=== PATIENT | female | born 1950 | race Hispanic/Latino ===

== ENCOUNTER 2016-10-16 20:23 | Emergency (ER) | payer MEDICARE, BC ==
[2016-10-16 20:45] VITALS: BP 132/71; PULSE 73; RESP 16; TEMP 99.2; BMI 36.7
--- NOTE | 2016-10-16 21:04 | ED PDOC ---
Arrival/HPI - General Chief Complaint: Lower Extremity Problem/Injury Time Seen by Provider: 10/16/16 21:01 Historian: Patient - History of Present Illness Narrative History of Present Illness (Text): 10/16/16 21:04 This 66 yo female presents to this ED c/o left calf pain, left foot pain x 6 months. Pain has exacerbated since last week. Pain is worse today. Denies other complains. Time/Duration: Other (6 months) Symptom Onset: Gradual Symptom Course: Worsening Context: Home Past Medical History - Provider Review Nursing Documentation Reviewed: Yes - Infectious Disease Hx of Infectious Diseases: None - Tetanus Immunization Tetanus Immunization: Unknown - Reproductive Menopause: Yes - Cardiac Hx Cardiac Disorders: No - Pulmonary Hx Respiratory Disorders: Yes Hx Chronic Obstructive Pulmonary Disease (COPD): Yes - HEENT Hx HEENT Disorder: Yes (eyeglasses) - Endocrine/Metabolic Hx Endocrine Disorders: Yes Hx Diabetes Mellitus Type 2: Yes - Hematological/Oncological Other/Comment: 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"; acute allergic nephritis - Musculoskeletal/Rheumatological Hx Musculoskeletal Disorders: No - Psychiatric Hx Substance Use: No - Surgical History Hx Appendectomy: Yes Hx Orthopedic Surgery: Yes (right knee) - Anesthesia Hx Anesthesia: Yes Hx Anesthesia Reactions: No Hx Malignant Hyperthermia: No - Suicidal Assessment Feels Threatened In Home Enviroment: No Family/Social History - Physician Review Nursing Documentation Reviewed: Yes Family/Social History: No Known Family HX Smoking Status: Former Smoker Hx Alcohol Use: No Hx Substance Use: No Hx Substance Use Treatment: No Allergies/Home Meds Allergies/Adverse Reactions: Allergies Penicillins Allergy (Verified 10/16/16 20:44) ANAPHYLAXIS strawberry Allergy (Verified 10/16/16 20:44) ITCHING Home Medications: Home Meds Medication Instructions Recorded Confirmed Aspirin [Aspir 81] 81 mg PO DAILY 10/09/12 10/16/16 Glipizide 5 mg PO BID PRN 10/09/12 10/16/16 Metformin Hydrochloride [Metformin] 500 mg PO BID 10/09/12 10/16/16 Methotrexate 2.5 mg PO SAT 10/09/12 10/16/16 Metoclopramide Hydrochloride 10 mg PO TID PRN 10/09/12 10/16/16 [Reglan] Sucralfate [Carafate] 1 gm PO TID PRN 10/09/12 10/16/16 Review of Systems - Review of Systems Constitutional: Normal. absent: Fatigue, Weight Change, Fevers Eyes: Normal ENT: Normal Respiratory: Normal Cardiovascular: Normal Gastrointestinal: Normal Genitourinary Female: Normal Musculoskeletal: Other (See HPI) Skin: Normal Neurological: Normal Endocrine: Normal Hemo/Lymphatic: Normal Psychiatric: Normal Physical Exam Vital Signs Temp Pulse Resp BP Pulse Ox 10/16/16 20:45 99.2 F 73 16 132/71 96 Temperature: Afebrile Blood Pressure: Normal Pulse: Regular Respiratory Rate: Normal Appearance: Positive for: Well-Appearing, Non-Toxic, Comfortable Pain Distress: None Mental Status: Positive for: Alert and Oriented X 3 - Systems Exam Head: Present: Atraumatic, Normocephalic Pupils: Present: PERRL Extroacular Muscles: Present: EOMI Conjunctiva: Present: Normal Mouth: Present: Moist Mucous Membranes Neck: Present: Normal Range of Motion Back: Present: Normal Inspection. No: CVA Tenderness Upper Extremity: Present: Normal Inspection, Normal ROM, NORMAL PULSES, Neurovascularly Intact, Capillary Refill < 2s. No: Cyanosis, Edema Lower Extremity: Present: CALF TENDERNESS (mild), NORMAL PULSES, Normal ROM, Tenderness (mild dorsal tenderness left foot), Neurovascularly Intact, Capillary Refill < 2 s, Other (Saldaña test was negative. No posterior ankle tenderness.). No: Edema, Cyanosis, Swelling, Erythema, Temperature Abnormalties Neurological: Present: GCS=15, CN II-XII Intact, Speech Normal Skin: Present: Warm, Dry, Normal Color. No: Rashes Psychiatric: Present: Alert, Oriented x 3 Medical Decision Making ED Course and Treatment: 10/16/16 23:10 Re-evaluation. Patient feels better. Discussed results and plan with patient who expresses understanding. All questions answered and there is agreement with the plan to discharge home with instructions. Patient stable for discharge. Return if symptoms persist or worsen Re-evaluation Time: 23:37 Reassessment Condition: Re-examined, Improved - RAD Interpretation Narrative RAD Interpretations (Text): 10/16/16 23:16 Patient Name: TORRES IZAGUIRRE FINDINGS: Bones/joints: There degenerative changes of the intertarsal and tarsometatarsal joints. There is osseous fragments present within the aspect of the forefoot at the level of the tarsal/metatarsal articulation involving the first digit, nonspecific probably chronic. Plantar spur of the calcaneus is present. No acute fracture. No dislocation. Soft tissues: There is mild soft tissue edema diffusely. No radiopaque foreign body. Vasculature: Vascular calcifications are evident. IMPRESSION: No acute findings. Dictated and Authenticated by: Mirta Kaur MD 10/16/2016 11:06 PM Eastern Time ([place] & [place]) 10/16/16 23:00 Foot x-rays: Questionable 3rd proximal metatarsal stress fx. vs groove Ankle x-rays: No fx or sublux. Radiology Orders: 10/16/16 21:02 ANKLE LEFT 3 VIEWS ROUTINE [RAD] Stat DUPLEX LOWER EXTRM VEIN LEFT [US] Stat 10/16/16 21:03 FOOT LEFT 3 VIEWS ROUTINE [RAD] Stat 10/16/16 22:19 EXT LOWER W/O CONTRAST LEFT [CT] Stat - Medication Orders Current Medication Orders: Discontinued Medications Acetaminophen (Tylenol 325mg Tab) 650 mg PO STAT STA Stop: 10/16/16 21:04 Last Admin: 10/16/16 21:11 Dose: 650 MG MAR Pain/Vitals Document 10/16/16 21:11 [email or web address] (Rec: 10/16/16 21:13 [email or web address] [id number]) Pain Reassessment Is This A Pain ReAssessment? No Sleep Is patient sleeping during reassessment? No Presence of Pain Presence of Pain Yes Pain Scale Used Pain Scale Used Numeric Location Left, Right or Bilateral Left Pain Location Body Site Foot Description Constant Intensity 6 Scale Used Numeric Pain Behavior Facial Grimacing Aggravating Factors Changing Position Aggravating Factors Changing Position Oxycodone/Acetaminophen (Percocet 5/325 Mg Tab) 1 tab PO STAT STA Stop: 10/16/16 23:06 Last Admin: 10/16/16 23:10 Dose: 1 TAB - Procedure PROCEDURE NOTE (Text): 10/16/16 23:14 [place] bandage was ordered. Disposition/Present on Arrival - Present on Arrival Any Indicators Present on Arrival: No History of DVT/PE: No History of Uncontrolled Diabetes: No Urinary Catheter: No History of Decub. Ulcer: No History Surgical Site Infection Following: None - Disposition Have Diagnosis and Disposition been Completed?: Yes Diagnosis: Foot pain, Ankle pain Disposition: HOME/ ROUTINE Disposition Time: 23:20 Patient Plan: Discharge Patient Problems: Current Active Problems Problem Status Diagnosed Ankle pain Acute Foot pain Acute Condition: GOOD Discharge Instructions (ExitCare): Arthralgia (ED) Additional Instructions: Call Dr. Toscano office for follow up visit in 1-2 days. Take medication as instructed by your doctor for pain. Keep foot elevated, rest, ice, milton bandage till revaluated by our doctor. Remove milton bandage at bedtime. Referrals: Geraldo Toscano MD [Primary Care Provider] - Follow up with primary
[2016-10-16] MEDS ORDERED: Oxycodone/Acetaminophen 5/325 mg Tab PO STA (23:05)
[2016-10-16 23:58] VITALS: O2SAT 98
--- NOTE | 2016-10-17 07:18 | US ---
PROCEDURE: Left lower extremity venous US HISTORY: Leg pain and swelling. Evaluate for DVT. PHYSICIAN(S): Bayron Rodriges MD. TECHNIQUE: Duplex sonography and color-flow Doppler with graded compression were used to evaluate the deep venous system of the left lower extremity. The exam is limited by body habitus and edema. FINDINGS: The visualized deep venous system of the left lower extremity is sonographically normal and compressible. Normal wave forms and augmentation are seen. There is no sonographic evidence for deep venous thrombosis in the visualized segments of the left lower extremity. IMPRESSION: 1. No sonographic evidence for deep venous thrombosis in the visualized segments of the left lower extremity.
--- NOTE | 2016-10-17 09:34 | RAD ---
PROCEDURE: Left Ankle Radiographs. HISTORY: pain COMPARISON: None FINDINGS: BONES: There is no acute fracture or bone destruction. Bone alignment is normal. There is diffuse bone demineralization. There is a large plantar calcaneal spur. JOINTS: Normal. No osteoarthritis. Ankle mortise maintained. Talar dome intact SOFT TISSUES: There is moderate periarticular soft tissue swelling and subcutaneous edema. OTHER FINDINGS: None. IMPRESSION: No acute fracture or dislocation.
--- NOTE | 2016-10-17 09:35 | RAD ---
PROCEDURE: Left Foot Radiographs. HISTORY: Pain COMPARISON: None. FINDINGS: BONES: There is no acute fracture or bone destruction. Bone alignment is normal. There is diffuse bone demineralization. There is a large plantar calcaneal spur. JOINTS: Normal. SOFT TISSUES: There is diffuse soft tissue swelling in the foot. OTHER FINDINGS: Atherosclerotic vascular calcifications are present. IMPRESSION: No acute fracture or dislocation.
--- NOTE | 2016-10-17 10:39 | CT ---
PROCEDURE: CT of the left foot HISTORY: dorsal foot pain r/o stress Fx base 3rd metatarsa COMPARISON: TECHNIQUE: CT of the left foot was performed with sagittal and coronal reconstructions. FINDINGS: There is no evidence of fracture. There is no dislocation. Mild degenerative changes are seen with osteophytes on the dorsal surface of the 1st and 2nd cuneiform. The report concurs with the preliminary [facility] report IMPRESSION: No acute findings
== END 2016-10-16 23:58 | disposition home or self-care (01) ==
LOC: ED 20:23
DX: M79.672 Pain in left foot (principal); M25.572 Pain in left ankle and joints of left foot; E11.9 Type 2 diabetes mellitus without complications; Z87.891 Personal history of nicotine dependence; Z88.0 Allergy status to penicillin

== ENCOUNTER 2016-12-13 13:26 | Emergency (ER) | payer MEDICARE, BC ==
[2016-12-13 13:41] VITALS: BMI 34.1
[2016-12-13 13:44] VITALS: BP 130/82; PULSE 79; RESP 16; TEMP 99.1
[2016-12-13] MEDS ORDERED: Morphine 2 mg/ml ISec IM STA (13:53)
--- NOTE | 2016-12-13 13:57 | ED PDOC ---
Arrival/HPI - General Chief Complaint: Trauma Time Seen by Provider: 12/13/16 13:49 Historian: Patient - History of Present Illness Narrative History of Present Illness (Text): 12/13/16 13:55 66 y/o female, pmh including dm, penicillin allergy, c/o lt. rib pain and lt. elbow pain s/p fall yesterday. Pt. was walking on the street, tripped, landed on the lt. elbow and hit against the lt. rib region, no LOC, no nausea or vomiting, no headache or night sweat, no hematuria, no bruising, no night sweat , no dizziness, no chest pain or shortness of breath, no numbness or tingling, no other medical or psychological complaints. 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"; acute allergic nephritis - Integumentary Hx Dermatological Disorder: No - Musculoskeletal/Rheumatological Hx Musculoskeletal Disorders: No - Gastrointestinal Hx Gastrointestinal Disorders: No - Genitourinary/Gynecological Hx Genitourinary Disorders: No - Psychiatric Hx Psychophysiologic Disorder: No Hx Depression: No Hx Emotional Abuse: No Hx Physical Abuse: No Hx Substance Use: No - Surgical History Hx Appendectomy: Yes Hx Orthopedic Surgery: Yes (right knee) - Anesthesia Hx Anesthesia: Yes Hx Anesthesia Reactions: No Hx Malignant Hyperthermia: No - Suicidal Assessment Feels Threatened In Home Enviroment: No Family/Social History - Physician Review Nursing Documentation Reviewed: Yes Family/Social History: Unknown Family HX Smoking Status: Former Smoker Hx Alcohol Use: No Hx Substance Use: No Hx Substance Use Treatment: No Allergies/Home Meds Allergies/Adverse Reactions: Allergies Penicillins Allergy (Verified 12/13/16 13:41) ANAPHYLAXIS strawberry Allergy (Verified 12/13/16 13:41) ITCHING Home Medications: Home Meds Medication Instructions Recorded Confirmed Aspirin [Aspir 81] 81 mg PO DAILY 10/09/12 12/13/16 Budesonide/Formoterol Fumarate 1 inh INH DAILY 12/13/16 12/13/16 [Symbicort 80-4.5 Mcg Inhaler] Fluticasone/Vilanterol [Breo 1 inh INH DAILY 12/13/16 12/13/16 Ellipta 100-25 Mcg INH] GlipiZIDE [Glucotrol] 1 tab PO .AM 12/13/16 12/13/16 Glipizide [Glipizide ER] 10 mg PO .HS 12/13/16 12/13/16 Methotrexate [Methotrexate] 2.5 mg PO .SAT 12/13/16 12/13/16 Metoclopramide [Reglan] 10 mg PO TID PRN 12/13/16 12/13/16 Sucralfate [Carafate] 1 gm PO TID PRN 12/13/16 12/13/16 metFORMIN [glucOPHAGE] 500 mg PO BID 12/13/16 12/13/16 Review of Systems - Review of Systems Constitutional: absent: Fatigue, Fevers Eyes: absent: Vision Changes ENT: absent: Hearing Changes Respiratory: absent: SOB, Cough Cardiovascular: absent: Chest Pain Gastrointestinal: absent: Abdominal Pain, Diarrhea, Nausea, Vomiting Musculoskeletal: Arthralgias. absent: Back Pain, Neck Pain, Joint Swelling, Myalgias Skin: absent: Rash, Pruritis, Skin Lesions, Laceration Neurological: absent: Headache, Dizziness, Focal Weakness, Gait Changes Psychiatric: absent: Anxiety, Depression, Suicidal Ideation Physical Exam Vital Signs Reviewed: Yes Vital Signs Temp Pulse Resp BP Pulse Ox 12/13/16 13:41 99.1 F 79 16 130/82 95 Temperature: Afebrile Blood Pressure: Normal Pulse: Regular Respiratory Rate: Normal Appearance: Positive for: Well-Appearing, Non-Toxic, Comfortable Pain Distress: Moderate Mental Status: Positive for: Alert and Oriented X 3 - Systems Exam Head: Present: Atraumatic, Normocephalic Pupils: Present: PERRL Extroacular Muscles: Present: EOMI Conjunctiva: Present: Normal Mouth: Present: Moist Mucous Membranes Neck: Present: Normal Range of Motion Respiratory/Chest: Present: Clear to Auscultation, Good Air Exchange, Tender to Palpation (mild +ttp on the lt. anterior lower rib region with no ecchymosis plus the pain is 100 % reproducible, skin intact. ). No: Respiratory Distress, Accessory Muscle Use, Wheezes, Decreased Breath Sounds, Rales, Retracting, Rhonchi, Tachypneic, Other Cardiovascular: Present: Regular Rate and Rhythm, Normal S1, S2. No: Murmurs Abdomen: Present: Normal Bowel Sounds. No: Tenderness, Distention, Peritoneal Signs Back: Present: Normal Inspection Upper Extremity: Present: Normal Inspection, Other (Lt. elbow: +ttp on the lateral elbow region with mild swelling, no ecchymosis, FROM without limitation , sensation intact, motor 5/5, +radial pulse, capillary refill< 2 seconds, neurovascular intact. ). No: Cyanosis, Edema Lower Extremity: Present: Normal Inspection. No: Edema Neurological: Present: GCS=15, CN II-XII Intact, Speech Normal Skin: Present: Warm, Dry, Normal Color. No: Rashes Psychiatric: Present: Alert, Oriented x 3, Normal Insight, Normal Concentration Medical Decision Making ED Course and Treatment: 12/13/16 13:57 -xray -morphine 2mg IM 12/13/16 14:52 -pt. requested percocet for pain. -xray show no acute traumatic finding except radial head fracture, long arm splint applied by me with neurovascular intact, sling given. -Discharge home with posterior splint, sling, continue the oxycodone you have at home for severe pain or take other over the counter pain med, follow up with your own pmd and orthopedic within 2 days, return to the ER for any new or worsening signs or symptoms. - RAD Interpretation Radiology Orders: 12/13/16 13:52 CHEST TWO VIEWS (PA/LAT) [RAD] Stat ELBOW LEFT 3 VIEWS ROUTINE [RAD] Stat RIBS LEFT [RAD] Stat Lt. elbow: radial head fracture Chest and lt. rib xray: no fracture, dislocation or pneumothorax. Disease Case Manager: Radiologist - Medication Orders Current Medication Orders: Discontinued Medications Morphine Sulfate (Morphine) 2 mg IM STAT STA Stop: 12/13/16 13:54 Last Admin: 12/13/16 14:44 Dose: Not Given Non-Admin Reason: Patient Refused Oxycodone/Acetaminophen (Percocet 5/325 Mg Tab) 1 tab PO STAT STA Stop: 12/13/16 14:44 Last Admin: 05/30/17 14:49 Dose: 1 tab - PA / DURAL MECHANIC / Resident Statement /DO has reviewed & agrees with the documentation as recorded. Disposition/Present on Arrival - Present on Arrival Any Indicators Present on Arrival: No History of DVT/PE: No History of Uncontrolled Diabetes: No Urinary Catheter: No History of Decub. Ulcer: No History Surgical Site Infection Following: None - Disposition Have Diagnosis and Disposition been Completed?: Yes Diagnosis: Rib injury, Elbow injury, Elbow fracture Disposition: HOME/ ROUTINE Disposition Time: 14:05 Patient Plan: Discharge Patient Problems: Current Active Problems Problem Status Onset Elbow fracture Acute Elbow injury Acute Rib injury Acute Condition: IMPROVED Additional Instructions: Discharge home with posterior splint, sling, continue the oxycodone you have at home for severe pain or take other over the counter pain med, follow up with your own pmd and orthopedic within 2 days, return to the ER for any new or worsening signs or symptoms. Referrals: Liam Duran MD [Staff Provider] - Follow up with primary Forms: WORK NOTE
[2016-12-13] MEDS ORDERED: Oxycodone/Acetaminophen 5/325 mg Tab PO STA (14:43)
--- NOTE | 2016-12-13 14:52 | RAD ---
PROCEDURE: Radiographs of the left elbow. HISTORY: lt. lateral elbow injury COMPARISON: No prior. FINDINGS: BONES: There is a mildly displaced fracture of the articular surface of the radial head JOINTS: Normal. No osteoarthritis. SOFT TISSUES: Normal. JOINT EFFUSION: Elevated fat pads consistent with effusion OTHER FINDINGS: None IMPRESSION: Mildly displaced fracture of the articular surface the radial head
--- NOTE | 2016-12-13 14:54 | RAD ---
PROCEDURE: Radiographs of the Left Ribs. HISTORY: lt. lower rib injury COMPARISON: None available. TECHNIQUE: Multiple views of the left ribcage FINDINGS: LEFT RIBS: No fracture or focal lesion visualized. LUNGS: Clear. PLEURA: No pneumothorax or pleural fluid. CARDIOVASCULAR: Normal sized heart. No pulmonary vascular congestion. OTHER FINDINGS: None. IMPRESSION: Negative study
--- NOTE | 2016-12-13 14:55 | RAD ---
HISTORY: lt. lower rib injury COMPARISON: No prior. TECHNIQUE: Chest PA and lateral FINDINGS: LUNGS: No active pulmonary disease. PLEURA: No significant pleural effusion identified. No pneumothorax apparent. CARDIOVASCULAR: Normal. OSSEOUS STRUCTURES: No significant abnormalities. VISUALIZED UPPER ABDOMEN: Normal. OTHER FINDINGS: None. IMPRESSION: No active disease.
[2016-12-13 15:17] VITALS: O2SAT 99
== END 2016-12-13 15:16 | disposition home or self-care (01) ==
LOC: ED 13:26
DX: S52.122A Displaced fracture of head of left radius, initial encounter for closed fracture (principal); S29.9XXA Unspecified injury of thorax, initial encounter; W18.30XA Fall on same level, unspecified, initial encounter; Y92.410 Unspecified street and highway as the place of occurrence of the external cause; E11.9 Type 2 diabetes mellitus without complications; Z87.891 Personal history of nicotine dependence

== ENCOUNTER 2016-12-16 13:38 | Emergency (ER) | payer MEDICARE, BC ==
[2016-12-16 13:39] VITALS: BMI 34.1
[2016-12-16 13:46] VITALS: BP 107/67; PULSE 90; RESP 16; TEMP 98.9
[2016-12-16 14:00] VITALS: O2SAT 98
--- NOTE | 2016-12-16 14:33 | ED PDOC ---
Arrival/HPI - General Chief Complaint: Rib Injury Time Seen by Provider: 12/16/16 14:18 Historian: Patient - History of Present Illness Narrative History of Present Illness (Text): 12/16/16 14:24 66yr old female presents today with continued left side rib pain s/p injury 5 days ago. pt states 5 days ago she tripped and fell landing on left side of body injuring left ribs. Patient states she was seen in the emergency room and diagnosed with a contusion of the ribs. Patient states she still thinks something is wrong. States she has pain to the left lateral ribs. She denies abdominal pain. No nausea or vomiting. She is complaining of difficulty breathing and pain with deep inspiration. Patient states she's been taking Percocet for pain at home. Symptom Onset: Sudden Symptom Course: Unchanged Quality: Aching, Stabbing Severity Level: 8 Past Medical History - Provider Review Nursing Documentation Reviewed: Yes - Travel History Have you recently traveled outside [place] w/in the past 3 mons?: No - Infectious Disease Hx of Infectious Diseases: None - Tetanus Immunization Tetanus Immunization: Unknown - Cardiac Hx Cardiac Disorders: No - Pulmonary Hx Respiratory Disorders: Yes Hx Chronic Obstructive Pulmonary Disease (COPD): Yes - Neurological Hx Neurological Disorder: No - HEENT Hx HEENT Disorder: Yes (eyeglasses) - Renal Hx Renal Disorder: No - Endocrine/Metabolic Hx Endocrine Disorders: Yes Hx Diabetes Mellitus Type 2: Yes - Hematological/Oncological Hx Blood Disorders: Yes Other/Comment: 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"; acute allergic nephritis - Integumentary Hx Dermatological Disorder: No - Musculoskeletal/Rheumatological Hx Musculoskeletal Disorders: No - Gastrointestinal Hx Gastrointestinal Disorders: No - Genitourinary/Gynecological Hx Genitourinary Disorders: No - Psychiatric Hx Psychophysiologic Disorder: No Hx Depression: No Hx Emotional Abuse: No Hx Physical Abuse: No Hx Substance Use: No - Surgical History Hx Appendectomy: Yes Hx Orthopedic Surgery: Yes (right knee) - Anesthesia Hx Anesthesia: Yes - Suicidal Assessment Feels Threatened In Home Enviroment: No Family/Social History - Physician Review Nursing Documentation Reviewed: Yes Family/Social History: Unknown Family HX Smoking Status: Former Smoker Hx Alcohol Use: No Hx Substance Use: No Hx Substance Use Treatment: No Allergies/Home Meds Allergies/Adverse Reactions: Allergies Penicillins Allergy (Verified 12/16/16 13:41) ANAPHYLAXIS strawberry Allergy (Verified 12/16/16 13:41) ITCHING Home Medications: Home Meds Medication Instructions Recorded Confirmed Aspirin [Aspir 81] 81 mg PO DAILY 10/09/12 12/16/16 Budesonide/Formoterol Fumarate 1 inh INH DAILY 12/13/16 12/16/16 [Symbicort 80-4.5 Mcg Inhaler] Fluticasone/Vilanterol [Breo 1 inh INH DAILY 12/13/16 12/16/16 Ellipta 100-25 Mcg INH] GlipiZIDE [Glucotrol] 1 tab PO .AM 12/13/16 12/16/16 Glipizide [Glipizide ER] 10 mg PO .HS 12/13/16 12/16/16 Methotrexate [Methotrexate] 2.5 mg PO .SAT 12/13/16 12/16/16 Metoclopramide [Reglan] 10 mg PO TID PRN 12/13/16 12/16/16 Sucralfate [Carafate] 1 gm PO TID PRN 12/13/16 12/16/16 metFORMIN [glucOPHAGE] 500 mg PO BID 12/13/16 12/16/16 Review of Systems - Review of Systems Constitutional: absent: Fatigue, Fevers Respiratory: absent: SOB, Cough Cardiovascular: absent: Chest Pain, Palpitations Gastrointestinal: absent: Abdominal Pain, Vomiting Genitourinary Female: absent: Dysuria, Frequency, Hematuria Musculoskeletal: Arthralgias (left rib pain) Skin: absent: Rash, Pruritis Neurological: absent: Headache, Dizziness Physical Exam Vital Signs Reviewed: Yes Vital Signs Temp Pulse Resp BP Pulse Ox 12/16/16 14:00 98.9 F 90 16 98 12/16/16 13:42 98.9 F 90 16 107/67 95 Temperature: Afebrile Blood Pressure: Normal Pulse: Regular Respiratory Rate: Normal Appearance: Positive for: Well-Appearing, Non-Toxic, Comfortable Pain Distress: None Mental Status: Positive for: Alert and Oriented X 3 - Systems Exam Head: Present: Atraumatic Mouth: Present: Moist Mucous Membranes Neck: Present: Normal Range of Motion Respiratory/Chest: Present: Clear to Auscultation, Good Air Exchange, Tender to Palpation (+ ttp over anterior and lateral left ribs; no step offs or crepitus; ). No: Respiratory Distress, Accessory Muscle Use, Wheezes, Decreased Breath Sounds, Rales, Retracting, Rhonchi, Tachypneic Cardiovascular: Present: Regular Rate and Rhythm, Normal S1, S2. No: Murmurs, Tachycardic Abdomen: No: Tenderness, Distention, Rebound, Guarding Upper Extremity: Present: Other (left arm in long arm posterior splint) Lower Extremity: Present: Normal ROM Neurological: Present: GCS=15, Speech Normal Skin: Present: Warm, Dry, Normal Color. No: Rashes Psychiatric: Present: Alert, Oriented x 3 Medical Decision Making ED Course and Treatment: 12/16/16 14:47 Patient is nontoxic well appearing in no distress with stable vital signs. Lungs are clear to auscultation bilaterally. There is left-sided lower rib tenderness both anteriorly and laterally without crepitus or step-offs. ct chest; Findings: Visualized portions of the inferior thyroid gland appear unremarkable. The unenhanced mediastinal and hilar vascular structures appear grossly unremarkable. The heart appears within normal limits of size. Coronary artery calcifications. Sub cm prevascular/mediastinal lymph nodes, nonspecific. Minimal basilar atelectasis. No focal consolidation. No pleural effusion. No pneumothorax. 4 mm right upper lobe pulmonary nodule (series 4, image 30). 3 mm right middle lobe pulmonary nodule (series 4, image 72). Limited visualization of the noncontrast upper abdomen appears grossly unremarkable. Osseous demineralization. Degenerative changes of the spine. No acute displaced fracture evident. Minimal irregularity about the left 6 anterior rib, possibly age indeterminate nondisplaced fracture (series 2, image 76). Impression: Minimal basilar atelectasis. 4 mm right upper lobe pulmonary nodule. 3 mm right middle lobe pulmonary nodule. In the absence of risk factors for lung cancer, no specific imaging follow-up is required. If the patient is a smoker or has other risk factors, follow-up CT at 12 months is recommended to document stability. Minimal irregularity about the left 6 anterior rib, possibly age indeterminate nondisplaced fracture. Toradol 60 mg IM given for pain. percocet; po incentive spirometer given; pt trained on how to use. Patient reassessment: Patient with slight improvement of pain. Lungs are clear bilaterally, Abdomen is soft nontender nondistended. discussed; ct findings of possible fracture and pulmonary nodule with patient; stressed importance of f/u with pmd. 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 Advised patient to follow up with the primary care physician within the next 2 days apply ice to the ribs frequently. Motrin every 6 hours as needed for pain and percocet every 6 hours as needed for moderate to severe pain. Advised returning if symptoms worsen persist or if new symptoms develop Impression: rib fracture, pulmonary nodule motrin every 6 hours as needed for pain percocet; 1 tablet every 6 hours as needed for moderate to severe pain; may cause drowsiness. use incentive spirometer follow up with the orthopedist within the next 2 days apply ice frequently follow up with the primary care physician regarding your pulmonary nodule. return immediately if symptoms worsen,persist or if new symptoms develop. - RAD Interpretation Radiology Orders: 12/16/16 14:19 CHEST W/O CONTRAST [CT] Stat - Medication Orders Current Medication Orders: Discontinued Medications Ketorolac Tromethamine (Toradol) 60 mg IM STAT STA Stop: 12/16/16 14:45 Last Admin: 12/16/16 15:08 Dose: 60 mg Oxycodone/Acetaminophen (Percocet 5/325 Mg Tab) 1 tab PO STAT STA Stop: 12/16/16 14:45 Last Admin: 12/16/16 15:05 Dose: 1 tab Disposition/Present on Arrival - Present on Arrival Any Indicators Present on Arrival: No History of DVT/PE: No History of Uncontrolled Diabetes: No Urinary Catheter: No History of Decub. Ulcer: No History Surgical Site Infection Following: None - Disposition Have Diagnosis and Disposition been Completed?: Yes Diagnosis: Pulmonary nodule, Rib fracture Disposition: HOME/ ROUTINE Disposition Time: 15:04 Patient Plan: Discharge Patient Problems: Current Active Problems Problem Status Onset Pulmonary nodule Acute Rib fracture Acute Condition: GOOD Discharge Instructions (ExitCare): How to Use an Incentive Spirometer (ED), Rib Fracture (ED), Pulmonary Nodules (ED) Additional Instructions: motrin every 6 hours as needed for pain percocet; 1 tablet every 6 hours as needed for moderate to severe pain; may cause drowsiness. use incentive spirometer follow up with the orthopedist within the next 2 days apply ice frequently follow up with the primary care physician regarding your pulmonary nodule. return immediately if symptoms worsen,persist or if new symptoms develop. Prescriptions: oxyCODONE/Acetaminophen [Percocet 5/325 mg Tab] 1 tab PO Q6H PRN #10 tab PRN Reason: moderate to severe pain Referrals: Bob Toscano MD [Primary Care Provider] - Follow up with primary Ruy Dowling MD [Staff Provider] - Follow up with primary
[2016-12-16] MEDS ORDERED: Oxycodone/Acetaminophen 5/325 mg Tab PO STA (14:44)
--- NOTE | 2016-12-16 15:19 | CT ---
CT chest without IV contrast Indication: left sided rib pain s/p fall Technique: Contiguous axial images were obtained through the chest without intravenous contrast enhancement. Sagittal and coronal reconstructions were generated and reviewed. This CT exam was performed using 1 or more of the falling dose reduction techniques: Automated exposure control, adjustment of the MAA and/or kV according to patient size, and/or use of iterative reconstruction technique. Radiation dose (DLP): 770.86 MGy-cm. Comparison: Chest x-ray, two views and left rib series performed 12/13/16. Findings: Visualized portions of the inferior thyroid gland appear unremarkable. The unenhanced mediastinal and hilar vascular structures appear grossly unremarkable. The heart appears within normal limits of size. Coronary artery calcifications. Sub cm prevascular/mediastinal lymph nodes, nonspecific. Minimal basilar atelectasis. No focal consolidation. No pleural effusion. No pneumothorax. 4 mm right upper lobe pulmonary nodule (series 4, image 30). 3 mm right middle lobe pulmonary nodule (series 4, image 72). Limited visualization of the noncontrast upper abdomen appears grossly unremarkable. Osseous demineralization. Degenerative changes of the spine. No acute displaced fracture evident. Minimal irregularity about the left 6 anterior rib, possibly age indeterminate nondisplaced fracture (series 2, image 76). Impression: Minimal basilar atelectasis. 4 mm right upper lobe pulmonary nodule. 3 mm right middle lobe pulmonary nodule. In the absence of risk factors for lung cancer, no specific imaging follow-up is required. If the patient is a smoker or has other risk factors, follow-up CT at 12 months is recommended to document stability. Minimal irregularity about the left 6 anterior rib, possibly age indeterminate nondisplaced fracture.
== END 2016-12-16 15:44 | disposition home or self-care (01) ==
LOC: ED 13:38
DX: S22.32XA Fracture of one rib, left side, initial encounter for closed fracture (principal); W01.0XXA Fall on same level from slipping, tripping and stumbling without subsequent striking against object, initial encounter; Y93.89 Activity, other specified; Y92.89 Other specified places as the place of occurrence of the external cause; R91.8 Other nonspecific abnormal finding of lung field
CPT/HCPCS: 71250; 96372; 99283; J1885

== ENCOUNTER 2017-06-10 19:56 | Inpatient (IN) | payer MEDICARE, BC ==
[2017-06-10] MEDS: Sodium Chloride 0.9% 1,000 ML IV SCH ×5 (20:33→23:33)
[2017-06-10 20:43] LABS: VENOUS BLOOD GAS BASE EXCESS -0.4 mmol/L (0.0-2.0); VENOUS BLOOD PH 7.36 (7.32-7.43)
[2017-06-10 20:47] LABS: BASO # 0.03 K/mm3 (0.0-2.0); BASO % 0.1 % (0.0-3.0); GRAN # 27.54 (1.4-6.5); GRAN % 85.7 % (50.0-68.0); HEMATOCRIT 43.2 % (36.0-48.0); LYMPH # 1.2 (1.2-3.4); LYMPH % 3.9 % (22.0-35.0); MEAN CELL VOLUME 83.4 fl (80.0-105.0); MEAN CORPUSCULAR HEMOGLOBIN 27.2 pg (25.0-35.0); MEAN CORPUSCULAR HGB CONC 32.6 g/dl (31.0-37.0); MONO # 3.3 (0.1-0.6); MONO % 10.3 % (1.0-6.0); PLATELET COUNT 368 10^3/uL (120.0-450.0); RED CELL DISTRIBUTION WIDTH 16.9 % (11.5-14.5)
[2017-06-10 20:49] LABS: WHITE BLOOD COUNT 32.1 10^3/ul (4.5-11.0)
[2017-06-10] MEDS ORDERED: metroNIDAZOLE IV 500 mg/100 ml 500 MG/100 ML BAG IVPB STA (20:52)
[2017-06-10] MEDS ORDERED: Aztreonam 1 Gm in NS 100mL 100 ML IVPB STA (20:53)
[2017-06-10 21:04] LABS: BAND 1 % (0-2); NEUTROPHIL 87 % (50.0-70.0); PLATELET ESTIMATE NORMAL (NORMAL)
[2017-06-10 21:05] LABS: GIANT PLATELETS PRESENT; LARGE PLATELETS PRESENT
[2017-06-10 21:06] LABS: ANISOCYTOSIS 1+; MICROCYTOSIS SLIGHT; OVALOCYTES SLIGHT; POIKILOCYTOSIS SLIGHT
--- NOTE | 2017-06-10 21:11 | ED PDOC ---
Arrival/HPI - General Chief Complaint: Chest Pain Time Seen by Provider: 06/10/17 20:23 Historian: Patient - History of Present Illness Narrative History of Present Illness (Text): 06/10/17 20:15 Genevieve Reynoso is a 67 year old female, whose past medical history includes COPD, hypertension, hyperlipidemia, questionable lupus history, diabetes, appendectomy, and GERD, who presents to the Emergency department complaining of abdominal pain. Patient states she has been experiencing RUQ/epigastric pain radiating to her back and up to her chest for the past few days. Patient reports associated nausea and vomiting. Patient denies any shortness of breath, diarrhea, urinary symptoms, neck pain, headache, dizziness, or any other complaints. Time/Duration: < week (few days) Symptom Onset: Gradual Symptom Course: Unchanged Activities at Onset: Light Context: Home 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"; acute allergic nephritis - Integumentary Hx Dermatological Disorder: No - Musculoskeletal/Rheumatological Hx Musculoskeletal Disorders: No - Gastrointestinal Hx Gastrointestinal Disorders: No - Genitourinary/Gynecological Hx Genitourinary Disorders: No - Psychiatric Hx Psychophysiologic Disorder: No Hx Depression: No Hx Emotional Abuse: No Hx Physical Abuse: No Hx Substance Use: No - Surgical History Hx Appendectomy: Yes Hx Orthopedic Surgery: Yes (right knee) - Anesthesia Hx Anesthesia: Yes - Suicidal Assessment Feels Threatened In Home Enviroment: No Family/Social History - Physician Review Nursing Documentation Reviewed: Yes Family/Social History: Unknown Family HX Smoking Status: Former Smoker Hx Alcohol Use: No Hx Substance Use: No Hx Substance Use Treatment: No Allergies/Home Meds Allergies/Adverse Reactions: Allergies Penicillins Allergy (Verified 12/16/16 13:41) ANAPHYLAXIS strawberry Allergy (Verified 12/16/16 13:41) ITCHING Home Medications: Home Meds Medication Instructions Recorded Confirmed Aspirin [Adult Low Dose Aspirin EC] 81 mg PO DAILY 06/10/17 06/10/17 Budesonide/Formoterol Fumarate 1 aer IH DAILY 06/10/17 06/10/17 [Symbicort] DULoxetine [Cymbalta] 25 mg PO DAILY 06/10/17 06/10/17 GlipiZIDE [Glipizide] 10 mg PO HS 06/10/17 06/10/17 GlipiZIDE [Glucotrol] 5 mg PO DAILY 06/10/17 06/10/17 Methotrexate 2.5 mg PO SAT 06/10/17 06/10/17 Metoclopramide [Reglan] 10 mg PO PRN PRN 06/10/17 06/10/17 Ondansetron ODT [Zofran ODT] 4 mg PO PRN PRN 06/10/17 06/10/17 Primidone [Mysoline] 25 mg PO HS 06/10/17 06/10/17 metFORMIN [glucOPHAGE] 500 mg PO BID 06/10/17 06/10/17 oxyCODONE [oxyCODONE Immediate 30 mg PO QID 06/10/17 06/10/17 Release Tab] Review of Systems - Physician Review All systems were reviewed & negative as marked: Yes - Review of Systems Constitutional: Normal. absent: Fevers Eyes: Normal ENT: Normal Respiratory: Normal. absent: SOB, Cough Cardiovascular: Chest Pain Gastrointestinal: Abdominal Pain, Nausea, Vomiting. absent: Diarrhea Genitourinary Female: Normal. absent: Dysuria, Frequency, Hematuria, Urine Output Changes Musculoskeletal: absent: Neck Pain Skin: Normal. absent: Rash Neurological: Normal. absent: Headache, Dizziness Endocrine: Normal Hemo/Lymphatic: Normal Psychiatric: Normal Physical Exam Vital Signs Reviewed: Yes Vital Signs Temp Pulse Resp BP Pulse Ox 06/10/17 22:42 78 18 110/68 97 06/10/17 21:59 83 18 101/56 L 99 06/10/17 21:20 80 19 98/59 L 94 L 06/10/17 21:10 97 H 18 100/59 L 99 06/10/17 20:10 98.4 F 99 H 16 88/52 L 94 L Temperature: Afebrile Blood Pressure: Hypotensive Pulse: Regular Respiratory Rate: Normal Appearance: Positive for: Well-Appearing, Non-Toxic, Comfortable Pain Distress: None Mental Status: Positive for: Alert and Oriented X 3 - Systems Exam Head: Present: Atraumatic, Normocephalic Pupils: Present: PERRL Extroacular Muscles: Present: EOMI Conjunctiva: Present: Normal Mouth: Present: Moist Mucous Membranes Neck: Present: Normal Range of Motion Respiratory/Chest: Present: Clear to Auscultation, Good Air Exchange. No: Respiratory Distress, Accessory Muscle Use Cardiovascular: Present: Regular Rate and Rhythm, Normal S1, S2. No: Murmurs Abdomen: Present: Tenderness (RUQ/Epigastric tenderness), Normal Bowel Sounds. No: Distention, Peritoneal Signs Back: Present: Normal Inspection Upper Extremity: Present: Normal Inspection. No: Cyanosis, Edema Lower Extremity: Present: Normal Inspection. No: Edema Neurological: Present: GCS=15, CN II-XII Intact, Speech Normal Skin: Present: Warm, Dry, Normal Color. No: Rashes Psychiatric: Present: Alert, Oriented x 3, Normal Insight, Normal Concentration Medical Decision Making ED Course and Treatment: 06/10/17 20:15 Impression: 67 year old female complaining of RUQ/epigastric pain, nausea, and vomiting for a few days. Differential Diagnosis included but are not limited to: cholecystitis vs. sepsis Plan: -- CT Abdomen and Pelvis w/o contrast -- EKG -- Chest X-ray -- Labs, VBG, cardiac enzymes, lipase, amylase, blood cultures -- UA, urine cultures -- IV fluids -- Azactam -- Flagyl -- Protonix -- Reassess and disposition Prior Visits: Notes and results from previous visits were reviewed. On 12/16/2016, pt was seen in the Emergency department for left-sided rib pain s /p injury. Pt was d/c home. Progress Notes: Reviewed EKG, NSR at [address] bpm[address] Non-specific ST/T wave changes. 06/10/17 20:55 Labs noted, WBC: 32.1, lactate: 3.6, pt hypotensive. Code Sepsis called. 06/10/17 22:27 Chest X-ray reviewed, shows no free air, no pneumonia. Reviewed CT Abdomen and Pelvis, shows: Lower thorax: Mild atelectasis/scarring. Coronary artery calcifications. ABDOMEN: Liver: Fatty infiltration. Gallbladder and bile ducts: Gallbladder wall thickening and/or fluid. No calcified gallstones. Mildto-moderate stranding about gallbladder. No ductal dilation. Pancreas: Unremarkable. No ductal dilation. Spleen: No splenomegaly. Adrenals: No mass. Kidneys and ureters: Too small to characterize lesion within RIGHT kidney. Small calculus within LEFT kidney. No hydronephrosis. Stomach and bowel: No definite mural thickening. No obstruction. Appendix: Appendectomy. PELVIS: Bladder: Unremarkable. No stones. Reproductive: Unremarkable as visualized. ABDOMEN and PELVIS: Intraperitoneal space: No significant fluid collection. No free air. Bones/joints: Degenerative changes and scoliosis of spine. Mild compression deformity T6 vertebral body, chronic. Soft tissues: Moderate ventral hernia containing fat and portion of transverse colon. Tiny ventral hernia containing fat. Tiny umbilical hernia containing fat. Vasculature: Veud-sr-yisomhwz atherosclerotic disease. No aneurysm. Lymph nodes: No pathologically enlarged lymph nodes. IMPRESSION: 1. Findings compatible with acute cholecystitis. Consider ultrasound. 2. Incidental/non-acute findings are described above. 06/10/17 22:[address] Scottie Romero, who is aware and agrees with plan. Accepts pt in to his service. Requests ICU evaluation and Dr. Calhoun on consult. microarray operations vice president paged. 06/10/17 22:37 Case discussed with surgical coder uplands division director, who is aware and agrees to evaluate pt. 06/10/17 22:[address] Rodrigez, graphite mill operator, who is aware and agrees to evaluate pt. 06/10/17 23:[address] Rodrigez, states pt can go to Telemetry. Pt will be admitted to Telemetry for cholecystitis. - Lab Interpretations Microbiology Results: Microbiology Results 06/10/17 20:35 Blood-Venous Blood Culture - Preliminary NO GROWTH AFTER 24 HOURS 06/10/17 20:15 Blood-Venous Blood Culture - Preliminary NO GROWTH AFTER 24 HOURS Lab Results: 06/10/17 20:20 06/10/17 21:10 Lab Results 06/10/17 21:50: Urine Color Yellow, Urine Appearance Cloudy, Urine pH 6.5, Ur Specific [place] 1.025, Urine Protein >=300 H, Urine Glucose (UA) Negative, Urine Ketones Negative, Urine Blood Small H, Urine Nitrate Negative, Urine Bilirubin Negative, Urine Urobilinogen 1.0 H, Ur Leukocyte Esterase Trace H, Urine RBC 0 - 2, Urine WBC 0 - 2, Ur Epithelial Cells Many, Urine Bacteria Large 06/10/17 21:10: Sodium 131 L, Chloride 95 L, Potassium 3.9, Carbon Dioxide 25, Anion Gap 14, BUN 29 H, Creatinine 2.2 H, Est GFR ( Amer) 27, Est GFR ( Non-Af Amer) 22, Random Glucose 155 H, Calcium 9.3, Phosphorus 3.2, Magnesium 1.7, Total Bilirubin 1.1, AST 27, ALT 22, Alkaline Phosphatase 82, Lactate Dehydrogenase 526, Total Creatine Kinase 291 H, CK-MB (CK-2) 1.8, CK-MB (CK-2) % Cancelled, Troponin I 0.08 D, Total Protein 7.2, Albumin 3.8, Globulin 3.3, Albumin/Globulin Ratio 1.1, Amylase 69, Lipase 49 06/10/17 21:10: PT 16.8 H, INR 1.53 H, APTT 34.4 06/10/17 20:22: POC Glucose (mg/dL) 176 H 06/10/17 20:20: pO2 56 H, VBG pH 7.36, VBG pCO2 45.0, VBG HCO3 25.4, VBG Total CO2 26.8, VBG O2 Sat (Calc) 86.2 H, VBG Base Excess -0.4 L, VBG Potassium 4.2, Sodium 133.0, Chloride 95.0 L, Glucose 179 H, Lactate 3.6 H, FiO2 21.0, Venous Blood Potassium 4.2 06/10/17 20:20: WBC 32.1 H* D, RBC 5.18, Hgb 14.1, Hct 43.2, MCV 83.4, MCH 27.2 , MCHC 32.6, RDW 16.9 H, Plt Count 368, MPV 10.0, Gran % 85.7 H, Lymph % (Auto) 3.9 L, Wood % (Auto) 10.3 H, Eos % (Auto) 0.0 L, Baso % (Auto) 0.1, Gran # 27.54 H, Lymph # 1.2, Wood # 3.3 H, Eos # 0.0, Baso # 0.03, Neutrophils % ( Manual) 87 H, Band Neutrophils % 1, Lymphocytes % (Manual) 5 L, Monocytes % ( Manual) 7 H, Platelet Evaluation Normal, Large Platelets Present, Giant Platelets Present, Poikilocytosis (manual Slight, Anisocytosis (manual) 1+, Microcytosis (manual) Slight, Ovalocytes Slight I have reviewed the lab results: Yes - RAD Interpretation Radiology Orders: 06/10/17 20:24 ABD & PELVIS W/O PO OR IV CONT [CT] Stat 06/10/17 20:54 CHEST ONE VIEW [RAD] Stat Management And Budget Analyst: ED Physician, Radiologist - EKG Interpretation Interpreted by ED Physician: Yes Type: 12 lead EKG - Medication Orders Current Medication Orders: Acetaminophen (Tylenol 325mg Tab) 650 mg PO Q4H PRN PRN Reason: Pain, Mild (1-3) Last Admin: 06/11/17 16:45 Dose: 650 mg OLIVA Pain/Vitals Document 06/11/17 16:45 DLL (Rec: 06/11/17 16:45 DLL [id number]) Vitals Temperature (97.6 F-99.6 F) 99.5 F Temperature Source Oral Re-Assess: OLIVA Pain/Vitals Document 06/11/17 17:45 DLL (Rec: 06/11/17 18:28 DLL [id number]) Vitals Temperature (97.6 F-99.6 F) 99 F Temperature Source Oral Duloxetine HCl (Cymbalta) 30 mg PO DAILY ELIJAH Glipizide (Glucotrol) 5 mg PO DAILY ELIJAH Glipizide (Glucotrol) 10 mg PO HS ELIJAH Last Admin: 06/11/17 22:52 Dose: Not Given Non-Admin Reason: NPO Hydromorphone HCl (Dilaudid) 1 mg IVP Q3H PRN PRN Reason: Pain, moderate (4-7) Last Admin: 06/12/17 04:18 Dose: 1 mg [facility] Pain Assessment Document 06/12/17 04:18 KOPPS (Rec: 06/12/17 04:19 KOPPS [id number]) Pain Reassessment Is this a pain reassessment? No Sleep Is patient sleeping during reassessment? No Presence of Pain Presence of Pain Yes Pain Scale Used Pain Scale Used Numeric Location Left, Right or Bilateral Bilateral Upper or Lower Upper Pain Location Body Site Abdomen Back Description Description Constant Intensity of Pain at present 7 Pain Behavior Facial Grimacing Aggravating Factors ADL's Changing Position Exercise/Activity Alleviating Factors/Management Medication Techniques Alleviating Factors Medication IVP Administration Document 06/12/17 04:18 BUDDYS (Rec: 06/12/17 04:19 [id number] Charges for Administration # of IVP Administrations 1 Metronidazole (Flagyl) 500 mg in 100 mls @ 100 mls/hr IVPB Q8 ELIJAH PRN Reason: Protocol Last Admin: 06/11/17 21:30 Dose: 100 mls/hr eMAR Start Stop Document 06/11/17 21:30 KOPPS (Rec: 06/11/17 21:31 [id number]) Intravenous Solution Start Date 06/11/17 Start Time 21:30 End Date 06/11/17 End time 22:30 Total Infusion Time 60 Sodium Chloride (Sodium Chloride 0.9%) 1,000 mls @ 125 mls/hr IV .Q8H ELIJAH Last Admin: 06/11/17 23:26 Dose: 125 mls/hr eMAR Start Stop Document 06/11/17 23:26 KOPPS (Rec: 06/11/17 23:26 [email or web address]) Intravenous Solution Start Date 06/11/17 Start Time 23:26 Insulin Human Regular (Humulin R Low) 0 units SC ACHS ELIJAH PRN Reason: Protocol Last Admin: 06/11/17 23:23 Dose: Not Given Non-Admin Reason: Blood Sugar Parameter MAR Blood Glucose Document 06/11/17 23:23 KOCHERYLS (Rec: 06/11/17 23:25 [id number]) Blood Glucose Finger Stick Blood Glucose (70-120) 112 Metformin HCl (Glucophage) 500 mg PO BID [facility] Last Admin: 06/11/17 18:17 Dose: Not Given Non-Admin Reason: NPO Non-Formulary Medication (Budesonide/Formoterol Fumarate [Symbicort 160-4.5 Mcg Inhaler]) 1 aer IH DAILY [facility] Last Admin: 06/11/17 18:17 Dose: Ondansetron HCl (Zofran Inj) 4 mg IVP Q4 PRN PRN Reason: Nausea/Vomiting Last Admin: 06/12/17 04:24 Dose: 4 mg IVP Administration Document 06/12/17 04:24 KOYOU (Rec: 06/12/17 04:24 [email or web address] Charges for Administration # of IVP Administrations 1 Ondansetron HCl (Zofran Odt) 4 mg PO Q6H PRN PRN Reason: Nausea/Vomiting Oxycodone HCl (Oxycodone Immediate Release Tab) 30 mg PO QID [facility] Last Admin: 06/11/17 21:29 Dose: 30 mg [facility] Pain Assessment Document 06/11/17 21:29 [facility] (Rec: 06/11/17 21:30 [email or web address]) Pain Reassessment Is this a pain reassessment? No Sleep Is patient sleeping during reassessment? No Presence of Pain Presence of Pain Yes Pain Scale Used Pain Scale Used Numeric Location Left, Right or Bilateral Bilateral Upper or Lower Lower Pain Location Body Site Abdomen Back Description Description Constant Intensity of Pain at present 8 Pain Behavior Facial Grimacing Aggravating Factors ADL's Changing Position Exercise/Activity Alleviating Factors/Management Medication Techniques Alleviating Factors Medication Re-Assess: [facility] Pain Assessment Document 06/11/17 22:29 [facility] (Rec: 06/11/17 23:25 [facility]35) Pain Reassessment Is this a pain reassessment? Yes Sleep Is patient sleeping during reassessment? No Presence of Pain Presence of Pain No Pain Scale Used Pain Scale Used Numeric Pantoprazole Sodium (Protonix Inj) 40 mg IVP DAILY [facility] Last Admin: 06/11/17 09:41 Dose: 40 mg IVP Administration Document 06/11/17 09:41 DLL (Rec: 06/11/17 09:41 [id number]) Charges for Administration # of IVP Administrations 1 Primidone (Mysoline) 25 mg PO HS [facility] Last Admin: 06/11/17 21:38 Dose: Not Given Non-Admin Reason: Patient Refused Discontinued Medications Sodium Chloride (Sodium Chloride 0.9%) 1,000 mls @ 1,000 mls/hr IV .Q1H [facility] Last Admin: 06/11/17 16:34 Dose: Not Given Non-Admin Reason: Agitation Aztreonam (Azactam 1 Gm) 100 mls @ 100 mls/hr IVPB STAT STA PRN Reason: Protocol Stop: 06/10/17 21:52 Last Admin: 06/10/17 21:08 Dose: 100 mls/hr eMAR Start Stop Document 06/10/17 21:08 RD (Rec: 06/10/17 21:08 RD [id number]) Intravenous Solution Start Date 06/10/17 Start Time 21:08 End Date 06/10/17 End time 22:08 Total Infusion Time 60 Metronidazole (Flagyl) 500 mg in 100 mls @ 100 mls/hr IVPB STAT STA PRN Reason: Protocol Stop: 06/10/17 21:51 Last Admin: 06/10/17 22:05 Dose: 100 mls/hr eMAR Start Stop Document 06/10/17 22:05 RD (Rec: 06/10/17 22:06 RD [id number]) Intravenous Solution Start Date 06/10/17 Start Time 22:06 End Date 06/10/17 End time 23:06 Total Infusion Time 60 Sodium Chloride 2,700 ml/ IV (SUPPLIES) 2,700 mls @ 5,633.64 mls/hr IV ONCE ONE PRN Reason: 60 ML/KG/HR Stop: 06/10/17 20:54 Last Admin: 06/10/17 21:07 Dose: 5,633.64 mls/hr eMAR Start Stop Document 06/10/17 21:07 RD (Rec: 06/10/17 21:08 RD [id number]) Intravenous Solution Start Date 06/10/17 Start Time 21:07 End Date 06/10/17 End time 21:37 Total Infusion Time 30 Magnesium Sulfate/Dextrose (Magnesium Sulfate 1 Gm/100 Ml D5w) 1 gm in 100 mls @ 100 mls/hr IVPB ONCE ONE Stop: 06/10/17 22:36 Last Admin: 06/10/17 22:06 Dose: 100 mls/hr eMAR Start Stop Document 06/10/17 22:06 RD (Rec: 06/10/17 22:06 RD [id number]) Intravenous Solution Start Date 06/10/17 Start Time 22:06 End Date 06/10/17 End time 23:06 Total Infusion Time 60 Sodium Chloride (Sodium Chloride 0.9%) 1,000 mls @ 100 mls/hr IV .Q10H STA Stop: 06/11/17 09:08 Last Admin: 06/10/17 23:18 Dose: 100 mls/hr eMAR Start Stop Document 06/10/17 23:18 RD (Rec: 06/10/17 23:18 RD [id number]) Intravenous Solution Start Date 06/10/17 Start Time 23:18 Aztreonam 500 mg/ Sodium (Chloride) 100 mls @ 100 mls/hr IVPB Q8 ELIJAH PRN Reason: Protocol Stop: 06/11/17 14:59 Last Admin: 06/11/17 13:45 Dose: 100 mls/hr eMAR Start Stop Document 06/11/17 13:45 DLL (Rec: 06/11/17 13:46 DLL [id number]) Intravenous Solution Start Date 06/11/17 Start Time 13:46 End Date 06/11/17 End time 14:46 Total Infusion Time 60 Morphine Sulfate (Morphine) 2 mg IVP STAT STA Stop: 06/10/17 23:13 Last Admin: 06/10/17 23:32 Dose: 2 mg MAR Pain Assessment Document 06/10/17 23:32 RD (Rec: 06/10/17 23:32 RD [id number]) Pain Reassessment Is this a pain reassessment? No Sleep Is patient sleeping during reassessment? No Presence of Pain Presence of Pain Yes IVP Administration Document 06/10/17 23:32 RD (Rec: 06/10/17 23:32 RD [id number]) Charges for Administration # of IVP Administrations 1 Re-Assess: OLIVA Pain Assessment Document 06/11/17 00:32 KOPPS (Rec: 06/11/17 08:44 KOPPS [facility] [id number]) Pain Reassessment Is this a pain reassessment? Yes Sleep Is patient sleeping during reassessment? No Presence of Pain Presence of Pain No Pain Scale Used Pain Scale Used Numeric Pantoprazole Sodium (Protonix Inj) 40 mg IVP ONCE STA Stop: 06/10/17 20:26 Last Admin: 06/10/17 20:39 Dose: 40 mg IVP Administration Document 06/10/17 20:39 RD (Rec: 06/10/17 20:39 RD [id number]) Charges for Administration # of IVP Administrations 1 - Scribe Statement The provider has reviewed the documentation as recorded by the Scribowen Aguilar All medical record entries made by the Scribe were at my direction and personally dictated by me. I have reviewed the chart and agree that the record accurately reflects my personal performance of the history, physical exam, medical decision making, and the department course for this patient. I have also personally directed, reviewed, and agree with the discharge instructions and disposition. Disposition/Present on Arrival - Present on Arrival Any Indicators Present on Arrival: No History of DVT/PE: No History of Uncontrolled Diabetes: No Urinary Catheter: No History of Decub. Ulcer: No History Surgical Site Infection Following: None - Disposition Have Diagnosis and Disposition been Completed?: Yes Diagnosis: Cholecystitis Disposition: HOSPITALIZED Disposition Time: 23:50 Condition: FAIR
[2017-06-10 21:23] LABS: INR 1.53 (0.93-1.08); PARTIAL THROMBOPLASTIN TIME 34.4 Seconds (25.1-36.5)
[2017-06-10 21:26] LABS: ALB/GLOB RATIO 1.1 (1.1-1.8); BILIRUBIN,TOTAL 1.1 mg/dL (0.2-1.3); CALCIUM 9.3 mg/dL (8.4-10.5); PHOSPHOROUS 3.2 mg/dL (2.5-4.5); POTASSIUM 3.9 mmol/L (3.6-5.0); TOTAL PROTEIN 7.2 g/dL (5.8-8.3)
[2017-06-10 21:37] LABS: TROPONIN I 0.08 ng/mL
[2017-06-10] MEDS ORDERED: Magnesium Sulfate 1 gm in D5W 1 GM/100 ML BAG IVPB ONE (21:37)
[2017-06-10 22:05] LABS: MAGNESIUM 1.7 mg/dL (1.7-2.2)
--- NOTE | 2017-06-10 22:29 | CT ---
EXAM: CT Abdomen and Pelvis Without Intravenous Contrast CLINICAL HISTORY: 67 years old, female; Pain; Abdominal pain; Prior surgery; Surgery type: Appendectom; Additional info: Abd pain TECHNIQUE: Axial computed tomography images of the abdomen and pelvis without intravenous contrast. All CT scans at this facility use one or more dose reduction techniques, viz.: automated exposure control; ma/kV adjustment per patient size (including targeted exams where dose is matched to indication; i.e. head); or iterative reconstruction technique. Coronal and sagittal reformatted images were created and reviewed. COMPARISON: No relevant prior studies available. FINDINGS: Lower thorax: Mild atelectasis/scarring. Coronary artery calcifications. ABDOMEN: Liver: Fatty infiltration. Gallbladder and bile ducts: Gallbladder wall thickening and/or fluid. No calcified gallstones. [id number]-[id number] stranding about gallbladder. No ductal dilation. Pancreas: Unremarkable. No ductal dilation. Spleen: No splenomegaly. Adrenals: No mass. Kidneys and ureters: Too small to characterize lesion within RIGHT kidney. Small calculus within LEFT kidney. No hydronephrosis. Stomach and bowel: No definite mural thickening. No obstruction. Appendix: Appendectomy. PELVIS: Bladder: Unremarkable. No stones. Reproductive: Unremarkable as visualized. ABDOMEN and PELVIS: Intraperitoneal space: No significant fluid collection. No free air. Bones/joints: Degenerative changes and scoliosis of spine. Mild compression deformity T6 vertebral body, chronic. Soft tissues: Moderate ventral hernia containing fat and portion of transverse colon. Tiny ventral hernia containing fat. Tiny umbilical hernia containing fat. Vasculature: Naci-pl-paskspim atherosclerotic disease. No aneurysm. Lymph nodes: No pathologically enlarged lymph nodes. IMPRESSION: 1. Findings compatible with acute cholecystitis. Consider ultrasound. 2. Incidental/non-acute findings are described above.
[2017-06-10 22:49] LABS: PH,URINE 6.5 (4.7-8.0); URINE BILIRUBIN NEGATIVE (NEGATIVE); URINE BLOOD SMALL (NEGATIVE); URINE GLUCOSE (UA) NEGATIVE (NEGATIVE); URINE KETONE NEGATIVE (NEGATIVE); URINE LEUKOCYTE ESTERASE TRACE Leu/uL (NEGATIVE); URINE PROTEIN >=300 mg/dL (<30 mg/dL)
[2017-06-10 22:54] LABS: URINE APPEARANCE CLOUDY (CLEAR); URINE BACTERIA LARGE (NEG); URINE COLOR YELLOW (YELLOW); URINE EPITHELIAL CELLS MANY /hpf (0-5); URINE RBC 0 - 2 /hpf (0-2); URINE WBC 0 - 2 /hpf (0-6)
[2017-06-10] MEDS ORDERED: Sodium Chloride 0.9% 1,000 ML IV STA (23:09)
[2017-06-10] MEDS ORDERED: Morphine 2 mg/ml ISec IVP STA (23:12)
--- NOTE | 2017-06-10 23:32 | CP.PCM.CON ---
History of Present Illness - History of Present Illness History of Present Illness: General Surgery - Dr. Calhoun 67F w/ hx of COPD, NIDDM, HTN, Appendectomy, and lupus-like autoimmune disorder , presenting w/ abdominal pain, N/V x2days. Pt states that it all started after Thanksgiving dinner with her feeling nauseous. She vomited 2x Monday, Non -bloody/non-bilious, and afterwards pt states the pain began. She describes the pain as sharp/stabbing located in the mid abdomen radiating up towards the chest, 9/10 at worst. She states she thinks she's had a milder version of this pain once in the past but never this severe. Pt denies any aggravating/ alleviating factors but suspects that the oily foods she had on Thanksgiving may have contributed. She admits to mild chills and SOB which she felt was associated with the abdominal pain. Pt denies any Fevers, Chest pain, Diarrhea, Constipation, Dysuria, Hematuria. PMH: COPD, NIDDM, HTN, Lupus-like autoimmune disorder PSH: Appendectomy Meds as per chart All: PCN Pt was seen in the ED for which a code sepsis was called. Initially pt was hypotensive but responded to fluid boluses. At time of exam all vitals stable and WNL. Review of the labs showed WBC of 32.2, Normal LFTs, Lactate of 3.6. CT abdomen/pelvis showed distended thick walled GB with pericholecystic fluid and stones. Surgery was consulted for acute cholecystitis. Review of Systems - Review of Systems All systems: reviewed and no additional remarkable complaints except (as per HPI ) Past Patient History - Infectious Disease Hx of Infectious Diseases: None - Tetanus Immunizations Tetanus Immunization: Unknown - Past Social History Smoking Status: Former Smoker - CARDIAC Hx Cardiac Disorders: No - PULMONARY Hx Respiratory Disorders: Yes Hx Chronic Obstructive Pulmonary Disease (COPD): Yes - NEUROLOGICAL Hx Neurological Disorder: No - HEENT Hx HEENT Problems: Yes (eyeglasses) - RENAL Hx Chronic Kidney Disease: No - ENDOCRINE/METABOLIC Hx Endocrine Disorders: Yes Hx Diabetes Mellitus Type 2: Yes - HEMATOLOGICAL/ONCOLOGICAL Hx Blood Disorders: Yes Other/Comment: 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"; acute allergic nephritis - INTEGUMENTARY Hx Dermatological Problems: No - MUSCULOSKELETAL/RHEUMATOLOGICAL Hx Musculoskeletal Disorders: No - GASTROINTESTINAL Hx Gastrointestinal Disorders: No - GENITOURINARY/GYNECOLOGICAL Hx Genitourinary Disorders: No - PSYCHIATRIC Hx Psychophysiologic Disorder: No Hx Depression: No Hx Emotional Abuse: No Hx Physical Abuse: No Hx Substance Use: No - SURGICAL HISTORY Hx Appendectomy: Yes Hx Orthopedic Surgery: Yes (right knee) - ANESTHESIA Hx Anesthesia: Yes Meds Allergies/Adverse Reactions: Allergies Allergy/AdvReac Type Severity Reaction Status Date / Time Penicillins Allergy ANAPHYLAXIS Verified 12/16/16 13:41 strawberry Allergy ITCHING Verified 12/16/16 13:41 - Medications Medications: Current Medications Acetaminophen (Tylenol 325mg Tab) 650 mg PO Q4H PRN PRN Reason: Pain, Mild (1-3) Hydromorphone HCl (Dilaudid) 1 mg IVP Q3H PRN PRN Reason: Pain, moderate (4-7) Sodium Chloride (Sodium Chloride 0.9%) 1,000 mls @ 1,000 mls/hr IV .Q1H [facility] Last Admin: 06/10/17 23:27 Dose: Not Given Sodium Chloride (Sodium Chloride 0.9%) 1,000 mls @ 100 mls/hr IV .Q10H STA Stop: 06/11/17 09:08 Last Admin: 06/10/17 23:18 Dose: 100 mls/hr Aztreonam 500 mg/ Sodium (Chloride) 100 mls @ 100 mls/hr IVPB Q8 ELIJAH PRN Reason: Protocol Stop: 06/11/17 14:59 Metronidazole (Flagyl) 500 mg in 100 mls @ 100 mls/hr IVPB Q8 ELIJAH PRN Reason: Protocol Sodium Chloride (Sodium Chloride 0.9%) 1,000 mls @ 125 mls/hr IV .Q8H [facility] Last Admin: 06/10/17 23:28 Dose: 125 mls/hr Insulin Human Regular (Humulin R Low) 0 units SC ACHS ELIJAH PRN Reason: Protocol Ondansetron HCl (Zofran Inj) 4 mg IVP Q4 PRN PRN Reason: Nausea/Vomiting Physical Exam - Constitutional Appears: No Acute Distress - Head Exam Head Exam: ATRAUMATIC, NORMAL INSPECTION, NORMOCEPHALIC - Eye Exam Eye Exam: EOMI, Normal appearance - ENT Exam ENT Exam: Mucous Membranes Dry - Respiratory Exam Respiratory Exam: NORMAL BREATHING PATTERN. absent: Respiratory Distress - Cardiovascular Exam Cardiovascular Exam: REGULAR RHYTHM - GI/Abdominal Exam GI & Abdominal Exam: Guarding, Hernia (incisional hernia), Soft, Tenderness (RUQ , + Outlook). absent: Distended, Firm - Neurological Exam Neurological exam: Alert, Oriented x3 - Psychiatric Exam Psychiatric exam: Normal Affect, Normal Mood - Skin Skin Exam: Dry, Intact Results - Vital Signs Recent Vital Signs: Last Vital Signs Temp 98.4 F 06/10/17 20:10 Pulse 78 06/10/17 22:42 Resp 18 06/10/17 22:42 BP 110/68 06/10/17 22:42 Pulse Ox 97 06/10/17 22:42 - Labs Result Diagrams: 06/10/17 20:20 06/10/17 21:10 Labs: Laboratory Results - last 24 hr 06/10/17 06/10/17 06/10/17 20:20 20:20 20:22 WBC 32.1 H* D RBC 5.18 Hgb 14.1 Hct 43.2 MCV 83.4 MCH 27.2 MCHC 32.6 RDW 16.9 H Plt Count 368 MPV 10.0 Gran % 85.7 H Lymph % (Auto) 3.9 L Barnes % (Auto) 10.3 H Eos % (Auto) 0.0 L Baso % (Auto) 0.1 Gran # 27.54 H Lymph # 1.2 Barnes # 3.3 H Eos # 0.0 Baso # 0.03 Neutrophils % (Manual) 87 H Band Neutrophils % 1 Lymphocytes % (Manual) 5 L Monocytes % (Manual) 7 H Platelet Evaluation Normal Large Platelets Present Giant Platelets Present Poikilocytosis (manual Slight Anisocytosis (manual) 1+ Microcytosis (manual) Slight Ovalocytes Slight PT INR APTT pO2 56 H VBG pH 7.36 VBG pCO2 45.0 VBG HCO3 25.4 VBG Total CO2 26.8 VBG O2 Sat (Calc) 86.2 H VBG Base Excess -0.4 L VBG Potassium 4.2 Sodium 133.0 Chloride 95.0 L Glucose 179 H Lactate 3.6 H FiO2 21.0 Potassium Carbon Dioxide Anion Gap BUN Creatinine Est GFR ( Amer) Est GFR (Non-Af Amer) POC Glucose (mg/dL) 176 H Random Glucose Calcium Phosphorus Magnesium Total Bilirubin AST ALT Alkaline Phosphatase Lactate Dehydrogenase Total Creatine Kinase CK-MB (CK-2) CK-MB (CK-2) % Troponin I Total Protein Albumin Globulin Albumin/Globulin Ratio Amylase Lipase Venous Blood Potassium 4.2 Urine Color Urine Appearance Urine pH Ur Specific [place] Urine Protein Urine Glucose (UA) Urine Ketones Urine Blood Urine Nitrate Urine Bilirubin Urine Urobilinogen Ur Leukocyte Esterase Urine RBC Urine WBC Ur Epithelial Cells Urine Bacteria 06/10/17 06/10/17 06/10/17 21:10 21:10 21:50 WBC RBC Hgb Hct MCV MCH MCHC RDW Plt Count MPV Gran % Lymph % (Auto) Barnes % (Auto) Eos % (Auto) Baso % (Auto) Gran # Lymph # Barnes # Eos # Baso # Neutrophils % (Manual) Band Neutrophils % Lymphocytes % (Manual) Monocytes % (Manual) Platelet Evaluation Large Platelets Giant Platelets Poikilocytosis (manual Anisocytosis (manual) Microcytosis (manual) Ovalocytes PT 16.8 H INR 1.53 H APTT 34.4 pO2 VBG pH VBG pCO2 VBG HCO3 VBG Total CO2 VBG O2 Sat (Calc) VBG Base Excess VBG Potassium Sodium 131 L Chloride 95 L Glucose Lactate FiO2 Potassium 3.9 Carbon Dioxide 25 Anion Gap 14 BUN 29 H Creatinine 2.2 H Est GFR ( Amer) 27 Est GFR (Non-Af Amer) 22 POC Glucose (mg/dL) Random Glucose 155 H Calcium 9.3 Phosphorus 3.2 Magnesium 1.7 Total Bilirubin 1.1 AST 27 ALT 22 Alkaline Phosphatase 82 Lactate Dehydrogenase 526 Total Creatine Kinase 291 H CK-MB (CK-2) 1.8 CK-MB (CK-2) % Cancelled Troponin I 0.08 D Total Protein 7.2 Albumin 3.8 Globulin 3.3 Albumin/Globulin Ratio 1.1 Amylase 69 Lipase 49 Venous Blood Potassium Urine Color Yellow Urine Appearance Cloudy Urine pH 6.5 Ur Specific [place] 1.025 Urine Protein >=300 H Urine Glucose (UA) Negative Urine Ketones Negative Urine Blood Small H Urine Nitrate Negative Urine Bilirubin Negative Urine Urobilinogen 1.0 H Ur Leukocyte Esterase Trace H Urine RBC 0 - 2 Urine WBC 0 - 2 Ur Epithelial Cells Many Urine Bacteria Large - Imaging and Cardiology CT scan - abdomen Status: Image reviewed by me, Report reviewed by me Assessment & Plan - Assessment and Plan (Free Text) Assessment: 67F w/ COPD, NIDDM, autoimmune disorder, presenting w/ Acute Cholecystitis -NPO, IVF hydration -F/U AM Labs -RUQ U/S to further assess GB/biliary tree -IV Abx -Pain control, Anti-emetics prn -Will plan for surgery early this week DW Dr Lj Granados PGY3
[2017-06-10 23:46] LABS: VENOUS BLOOD GAS BASE EXCESS -2.3 mmol/L (0.0-2.0); VENOUS BLOOD PH 7.29 (7.32-7.43)
--- NOTE | 2017-06-10 23:52 | PCM.SEPTIC ---
Sepsis Progress Note - Reassessment Type Date of Evaluation: 06/10/17 Time of Evaluation: 23:51 Reassessment Type: Non-invasive reassessment - Non Invasive Reassessment Were the most recent vital sign reviewed: Yes Vital Sign (Latest): Temp Pulse Resp BP Pulse Ox 98.4 F 78 18 110/68 97 06/10/17 20:10 06/10/17 22:42 06/10/17 22:42 06/10/17 22:42 06/10/17 22:42 Cardiovascular: Yes: Regular Rate, Rhythm. No: Murmur, Tachycardia Respiratory: Yes: Normal Breath Sounds. No: Crackles, Rales Capillary Refill: Normal (Less than 2 sec) Skin: Normal Color, Warm, Dry
--- NOTE | 2017-06-10 23:58 | CP.PCM.CON ---
<Daphne Ho - Last Filed: 06/10/17 23:43> History of Present Illness - History of Present Illness History of Present Illness: ICU Consult Note for Luis Lindsey PGY2 Reason for consult: Hypotension This is a 67Y F with past medical history of DM, COPD, CKD, and lupus like autoimmune disorder came to the ED with abdominal pain and nausea x 3 days. Patient reports having RUQ abdominal pain that radiates to her back. It is worse after eating. She felt nauseous with some vomiting. She has never had these symptoms before. The patient reports also having chills, but denies diarrhea, fever, dysuria, hematuria, numbness/tingling, chest pain or shortness of breath. In the ED, patient was found to be hypotensive with elevated lactate and leukocytosis. Code sepsis was called. CT abd/pelvis was positive for acute cholecystitis. Past medical history: DM, COPD, CKD, autoimmune disorder-lupus like Past surgical history: appendectomy, knee replacement Home meds: As per MAR Allergies: Penicillin, [place] Social history: Former smoker, denies EtOH or drug use. Lives with family PMD: [place] Review of Systems - Review of Systems All systems: reviewed and no additional remarkable complaints except Review of Systems: + Abdominal pain, chills, nausea/vomiting. Past Patient History - Infectious Disease Hx of Infectious Diseases: None - Tetanus Immunizations Tetanus Immunization: Unknown - Past Social History Smoking Status: Former Smoker Alcohol: None Drugs: Denies Home Situation {Lives}: With Family - CARDIAC Hx Cardiac Disorders: No - PULMONARY Hx Respiratory Disorders: Yes Hx Chronic Obstructive Pulmonary Disease (COPD): Yes - NEUROLOGICAL Hx Neurological Disorder: No - HEENT Hx HEENT Problems: Yes (eyeglasses) - RENAL Hx Chronic Kidney Disease: No - ENDOCRINE/METABOLIC Hx Endocrine Disorders: Yes Hx Diabetes Mellitus Type 2: Yes - HEMATOLOGICAL/ONCOLOGICAL Hx Blood Disorders: Yes Other/Comment: 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"; acute allergic nephritis - INTEGUMENTARY Hx Dermatological Problems: No - MUSCULOSKELETAL/RHEUMATOLOGICAL Hx Musculoskeletal Disorders: No - GASTROINTESTINAL Hx Gastrointestinal Disorders: No - GENITOURINARY/GYNECOLOGICAL Hx Genitourinary Disorders: No - PSYCHIATRIC Hx Psychophysiologic Disorder: No Hx Depression: No Hx Emotional Abuse: No Hx Physical Abuse: No Hx Substance Use: No - SURGICAL HISTORY Hx Appendectomy: Yes Hx Orthopedic Surgery: Yes (right knee) - ANESTHESIA Hx Anesthesia: Yes Meds Allergies/Adverse Reactions: Allergies Allergy/AdvReac Type Severity Reaction Status Date / Time Penicillins Allergy ANAPHYLAXIS Verified 12/16/16 13:41 strawberry Allergy ITCHING Verified 12/16/16 13:41 - Medications Medications: Current Medications Acetaminophen (Tylenol 325mg Tab) 650 mg PO Q4H PRN PRN Reason: Pain, Mild (1-3) Hydromorphone HCl (Dilaudid) 1 mg IVP Q3H PRN PRN Reason: Pain, moderate (4-7) Sodium Chloride (Sodium Chloride 0.9%) 1,000 mls @ 1,000 mls/hr IV .Q1H [facility] Last Admin: 06/10/17 23:33 Dose: Not Given Sodium Chloride (Sodium Chloride 0.9%) 1,000 mls @ 100 mls/hr IV .Q10H STA Stop: 06/11/17 09:08 Last Admin: 06/10/17 23:18 Dose: 100 mls/hr Aztreonam 500 mg/ Sodium (Chloride) 100 mls @ 100 mls/hr IVPB Q8 ELIJAH PRN Reason: Protocol Stop: 06/11/17 14:59 Metronidazole (Flagyl) 500 mg in 100 mls @ 100 mls/hr IVPB Q8 ELIJAH PRN Reason: Protocol Sodium Chloride (Sodium Chloride 0.9%) 1,000 mls @ 125 mls/hr IV .Q8H [facility] Last Admin: 06/10/17 23:28 Dose: 125 mls/hr Insulin Human Regular (Humulin R Low) 0 units SC ACHS ELIJAH PRN Reason: Protocol Ondansetron HCl (Zofran Inj) 4 mg IVP Q4 PRN PRN Reason: Nausea/Vomiting Physical Exam - Constitutional Appears: No Acute Distress - Head Exam Head Exam: ATRAUMATIC, NORMAL INSPECTION, NORMOCEPHALIC - Eye Exam Eye Exam: Normal appearance, PERRL Pupil Exam: NORMAL ACCOMODATION, PERRL - ENT Exam ENT Exam: Mucous Membranes Dry - Respiratory Exam Respiratory Exam: Clear to Auscultation Bilateral, NORMAL BREATHING PATTERN. absent: Rales, Rhonchi, Wheezes - Cardiovascular Exam Cardiovascular Exam: REGULAR RHYTHM, +S1, +S2. absent: Gallop, Rubs, Systolic Murmur - GI/Abdominal Exam GI & Abdominal Exam: Normal Bowel Sounds, Soft, Tenderness (to RUQ). absent: Mass, Rebound, Rigid - Extremities Exam Extremities exam: Positive for: normal inspection. Negative for: calf tenderness, pedal edema - Neurological Exam Neurological exam: Alert, CN II-XII Intact, Oriented x3 - Psychiatric Exam Psychiatric exam: Normal Affect, Normal Mood - Skin Skin Exam: Dry, Normal Color, Warm Results - Vital Signs Recent Vital Signs: Last Vital Signs Temp 98.4 F 06/10/17 20:10 Pulse 78 06/10/17 22:42 Resp 18 06/10/17 22:42 BP 110/68 06/10/17 22:42 Pulse Ox 97 06/10/17 22:42 - Labs Result Diagrams: 06/10/17 20:20 06/10/17 21:10 Assessment & Plan - Assessment and Plan (Free Text) Assessment: This is a 67Y F with past medical history of DM, COPD, CKD, and lupus like autoimmune disorder admitted for sepsis secondary to acute cholecystitis. Plan: Neuro: A&O x 3 Maintain normothermia Pain control CV: Hemodynamically stable Hypotension (improved) was responsive to IV fluids Continue IV Hydration Maintain MAP>65 Resp: Patient comfortable on room air Maintain spO2>90% GI: Acute cholecystitis seen on CT NPO Surgery on consult Zofran prn nausea Heme: Hgb stable Continue to monitor CBC Nephro: SHRUTI on CKD Secondary to dehydration Continue IV fluids Continue to monitor electrolytes and replace as needed ID: Sepsis secondary to acute cholecystitis Leukocytosis, afebrile, lactate elevated Blood culture pending Continue Aztreonam and Flagyl Endo: ISS, BGM q6h Maintain euglycemia GI ppx: Protonix DVT ppx: SCDs Dispo: Patient is hemodynamically stable at this time after treatment with IV fluids. She is comfortable on room air. Patient does not require ICU at this time. Please call for re-evaluation if needed. Thank you for this consultation. Case seen, discussed and reviewed with Dr. Rodrigez. Luis Ho PGY2 - Date & Time Date: 06/11/17 Time: 00:10 <Rain RASCON,Marco - Last Filed: 06/11/17 07:58> Meds - Medications Medications: Current Medications Acetaminophen (Tylenol 325mg Tab) 650 mg PO Q4H PRN PRN Reason: Pain, Mild (1-3) Last Admin: 06/11/17 06:48 Dose: 650 mg Hydromorphone HCl (Dilaudid) 1 mg IVP Q3H PRN PRN Reason: Pain, moderate (4-7) Last Admin: 06/11/17 01:55 Dose: 1 mg Sodium Chloride (Sodium Chloride 0.9%) 1,000 mls @ 1,000 mls/hr IV .Q1H ELIJAH Last Admin: 06/10/17 23:33 Dose: Not Given Sodium Chloride (Sodium Chloride 0.9%) 1,000 mls @ 100 mls/hr IV .Q10H [facility] Stop: 06/11/17 09:08 Last Admin: 06/10/17 23:18 Dose: 100 mls/hr Aztreonam 500 mg/ Sodium (Chloride) 100 mls @ 100 mls/hr IVPB Q8 ELIJAH PRN Reason: Protocol Stop: 06/11/17 14:59 Last Admin: 06/11/17 06:51 Dose: 100 mls/hr Metronidazole (Flagyl) 500 mg in 100 mls @ 100 mls/hr IVPB Q8 ELIJAH PRN Reason: Protocol Last Admin: 06/11/17 06:35 Dose: 100 mls/hr Sodium Chloride (Sodium Chloride 0.9%) 1,000 mls @ 125 mls/hr IV .Q8H [facility] Last Admin: 06/10/17 23:28 Dose: 125 mls/hr Insulin Human Regular (Humulin R Low) 0 units SC ACHS ELIJAH PRN Reason: Protocol Ondansetron HCl (Zofran Inj) 4 mg IVP Q4 PRN PRN Reason: Nausea/Vomiting Last Admin: 06/11/17 06:59 Dose: 4 mg Pantoprazole Sodium (Protonix Inj) 40 mg IVP DAILY [facility] Results - Vital Signs Recent Vital Signs: Last Vital Signs Temp 100.2 F H 06/11/17 06:48 Pulse 83 06/11/17 06:00 Resp 19 06/11/17 06:00 BP 107/53 L 06/11/17 06:00 Pulse Ox 91 L 06/11/17 06:00 - Labs Result Diagrams: 06/10/17 20:20 06/11/17 06:30 Labs: Laboratory Results - last 24 hr 06/10/17 06/11/17 06/11/17 23:20 06:30 06:30 PT 14.4 H INR 1.30 H APTT 31.3 pO2 46 VBG pH 7.29 L VBG pCO2 52.0 VBG HCO3 25.0 VBG Total CO2 26.6 VBG O2 Sat (Calc) 77.5 H VBG Base Excess -2.3 L VBG Potassium 3.7 Sodium 132.0 135 Chloride 98.0 101 Glucose 170 H Lactate 2.7 H FiO2 21.0 Potassium 3.7 Carbon Dioxide 27 Anion Gap 11 BUN 29 H Creatinine 1.8 H Est GFR ( Amer) 34 Est GFR (Non-Af Amer) 28 Random Glucose 136 H Calcium 8.7 Total Bilirubin 0.7 AST 23 ALT 24 Alkaline Phosphatase 77 Total Protein 6.2 Albumin 3.2 Globulin 3.0 Albumin/Globulin Ratio 1.1 Venous Blood Potassium 3.7 Attending/Attestation - Attestation I have personally seen and examined this patient.: Yes I have fully participated in the care of the patient.: Yes I have reviewed all pertinent clinical information: Yes Notes (Text): -I agree with the above ICU consult note completed by the resident physician with the following additions and/or changes: -The patient is a 67 year old woman with a history of NIDDM, COPD, CKD, and a "lupus-like autoimmune disorder", who presented with sepsis due to acute cholecystitis (confirmed on CT-AP). Although her initial SBP in the ED was 88, her subsequent blood pressures quickly normalized after receiving IVF boluses by the ED physician. Because her vitals have normalized with IVF's, the patient doesn't require ICU level of care at this time. Recommend follow-up of surgery recommendations, NPO, aggressive IVF's and empiric IV antibiotics (including anaerobic coverage). A serum procalcitonin has been ordered. If the patient's condition deteriorates, please feel free to re-consult. Thanks.
[2017-06-11] MEDS: HYDROmorphone 1 mg/ml ISec IVP PRN ×2 (01:55→11:59)
[2017-06-11 04:08] VITALS: BMI 36.6
[2017-06-11] MEDS: metroNIDAZOLE IV 500 mg/100 ml 500 MG/100 ML BAG IVPB SCH ×3 (06:35→21:30)
[2017-06-11 07:09] LABS: BASO # 0.02 K/mm3 (0.0-2.0); BASO % 0.1 % (0.0-3.0); EOS # 0.1 (0.0-0.7); EOS % 0.3 % (1.5-5.0); GRAN # 15.45 (1.4-6.5); GRAN % 87.6 % (50.0-68.0); HEMATOCRIT 37.3 % (36.0-48.0); LYMPH # 1.1 (1.2-3.4); MEAN CELL VOLUME 83.6 fl (80.0-105.0); MEAN CORPUSCULAR HEMOGLOBIN 26.2 pg (25.0-35.0); MEAN CORPUSCULAR HGB CONC 31.4 g/dl (31.0-37.0); MEAN PLATELET VOLUME 9.9 fl (7.0-11.0); MONO # 1.1 (0.1-0.6); RED CELL DISTRIBUTION WIDTH 16.9 % (11.5-14.5); WHITE BLOOD COUNT 17.6 10^3/ul (4.5-11.0)
[2017-06-11 07:44] LABS: INR 1.3 (0.93-1.08)
[2017-06-11 07:45] LABS: PARTIAL THROMBOPLASTIN TIME 31.3 Seconds (25.1-36.5)
[2017-06-11 07:50] LABS: ALB/GLOB RATIO 1.1 (1.1-1.8); BILIRUBIN,TOTAL 0.7 mg/dL (0.2-1.3); CALCIUM 8.7 mg/dL (8.4-10.5); POTASSIUM 3.7 mmol/L (3.6-5.0); TOTAL PROTEIN 6.2 g/dL (5.8-8.3)
[2017-06-11] MEDS: Insulin Reg-LOW-Coverage SC SCH ×4 (08:57→23:23)
[2017-06-11] MEDS: Sodium Chloride 0.9% 1,000 ML IV SCH ×7 (08:58→23:26)
--- NOTE | 2017-06-11 09:05 | CARD ---
APPROVED REPORT EKG Measurement Heart [id number] <Conclusion> Normal sinus rhythm Left ventricular hypertrophy Q in 3 NSSTW changes No change
--- NOTE | 2017-06-11 10:14 | RAD ---
PROCEDURE: CHEST RADIOGRAPH, 1 VIEW HISTORY: Sepsis Patient COMPARISON: 12/30/2016 FINDINGS: LUNGS: Clear. PLEURA: No pneumothorax or pleural fluid seen. CARDIOVASCULAR: Normal. OSSEOUS STRUCTURES: No significant abnormalities. VISUALIZED UPPER ABDOMEN: Normal. OTHER FINDINGS: None. IMPRESSION: No active disease.
--- NOTE | 2017-06-11 12:35 | US ---
HISTORY: cholecystitis COMPARISON: None. TECHNIQUE: Sonographic evaluation of the abdomen. FINDINGS: LIVER: Measures 15.77 x 13.56 in length. Increased echogenicity of the liver parenchyma. No mass. No intrahepatic bile duct dilatation. GALLBLADDER: Multiple gallstones. Mild thickening of the gallbladder wall measuring 5 mm. No evidence of pericholecystic fluid COMMON BILE DUCT: Measures 5.7 mm in transverse dimension. No stones. No dilatation. PANCREAS: Unremarkable as visualized. No mass. No ductal dilatation. RIGHT KIDNEY: Measures 11.57 x 4.59 x 5.15cm. Normal echogenicity. No calculus, mass, or hydronephrosis. AORTA: No aneurysmal dilatation. IVC: Unremarkable. OTHER FINDINGS: None . IMPRESSION: Multiple gallstones. Mild thickening of the gallbladder wall measuring 5 mm. No evidence of pericholecystic fluid Fatty infiltration of the liver
[2017-06-11] MEDS: oxyCODONE 30 mg Immediate Release Tab PO SCH ×2 (18:17→21:29)
[2017-06-11] MEDS: Non Formulary Medication (Budesonide/Formoterol Fumarate [Symbicort 160-4.5 Mcg Inhaler] 1 IH SCH (18:17)
[2017-06-12] MEDS: HYDROmorphone 1 mg/ml ISec IVP PRN ×5 (04:18→23:58)
[2017-06-12] MEDS: metroNIDAZOLE IV 500 mg/100 ml 500 MG/100 ML BAG IVPB SCH ×3 (05:24→22:30)
[2017-06-12 06:28] LABS: BASO # 0.01 K/mm3 (0.0-2.0); BASO % 0.1 % (0.0-3.0); EOS # 0.2 (0.0-0.7); EOS % 1.3 % (1.5-5.0); GRAN # 12.66 (1.4-6.5); GRAN % 86.3 % (50.0-68.0); HEMATOCRIT 35.4 % (36.0-48.0); LYMPH # 0.8 (1.2-3.4); LYMPH % 5.3 % (22.0-35.0); MEAN CELL VOLUME 83.5 fl (80.0-105.0); MEAN CORPUSCULAR HEMOGLOBIN 26.2 pg (25.0-35.0); MEAN CORPUSCULAR HGB CONC 31.4 g/dl (31.0-37.0); MEAN PLATELET VOLUME 9.4 fl (7.0-11.0); RED CELL DISTRIBUTION WIDTH 17.1 % (11.5-14.5); WHITE BLOOD COUNT 14.7 10^3/ul (4.5-11.0)
[2017-06-12 06:40] LABS: INR 1.39 (0.93-1.08); PARTIAL THROMBOPLASTIN TIME 29.7 Seconds (25.1-36.5)
[2017-06-12 06:49] LABS: BILIRUBIN,TOTAL 0.6 mg/dL (0.2-1.3); CALCIUM 8.7 mg/dL (8.4-10.5); POTASSIUM 3.7 mmol/L (3.6-5.0); TOTAL PROTEIN 6.1 g/dL (5.8-8.3)
[2017-06-12] MEDS ORDERED: Bupivacaine 0.5% Inj(30mL) ONE (07:40)
[2017-06-12] MEDS ORDERED: Iohexol 240 (50 ml) ONE (07:40)
[2017-06-12] MEDS: Insulin Reg-LOW-Coverage SC SCH ×3 (08:08→17:46)
[2017-06-12] MEDS ORDERED: Propofol 10 mg/ml Inj (20 ML) ONE (08:27)
[2017-06-12] MEDS ORDERED: Midazolam 2 MG/2 ML VIAL ONE (08:28)
[2017-06-12] MEDS ORDERED: Rocuronium 10 mg/ml (5 ml) ONE ×2 (08:36→09:00)
[2017-06-12] MEDS ORDERED: Aztreonam 1 Gm in NS 100mL 100 ML IVPB STA (08:45)
[2017-06-12] MEDS ORDERED: Sevoflurane - Inhalation Anesthetic Liq (250 ml) ONE (08:50)
[2017-06-12] MEDS: Non Formulary Medication (Budesonide/Formoterol Fumarate [Symbicort 160-4.5 Mcg Inhaler] 1 IH SCH (09:39)
[2017-06-12] MEDS: oxyCODONE 30 mg Immediate Release Tab PO SCH ×4 (09:39→22:29)
--- NOTE | 2017-06-12 11:39 | PCM.SURG1 ---
Surgeon's Initial Post Op Note - Surgeon's Notes Surgeon: Lj Full Stack Java Developer: Darwin PGY3, Kitty PGY1 Type of Anesthesia: General Endo Pre-Operative Diagnosis: Acute Cholecystitis, incarcerated ventral hernia Operative Findings: actuly infected gallbladder, incarcerated ventral hernia Post-Operative Diagnosis: Acute cholecystitis, incarcerated ventral hernia Operation Performed: laprascopic cholecystectomy, open ventral hernia repair with primary closure Specimen/Specimens Removed: hernia sac, gallbladder Estimated Blood Loss: EBL {In ML}: 10 Blood Products Given: N/A Drains Used: Wilberto Post-Op Condition: Good Date of Surgery/Procedure: 06/12/17 Time of Surgery/Procedure: 11:39
[2017-06-12] MEDS ORDERED: HYDROmorphone 0.5 mg/0.5 ml ISec ONE (11:57)
[2017-06-12] MEDS: Sodium Chloride 0.9% 1,000 ML IV SCH ×2 (13:09→23:54)
[2017-06-12] MEDS ORDERED: Aztreonam 1 Gm in NS 100mL 100 ML IVPB SCH (14:00)
[2017-06-12] MEDS: Aztreonam 1 Gm in NS 100mL 100 ML IVPB SCH ×2 (14:53→23:53)
[2017-06-13] MEDS: Insulin Reg-LOW-Coverage SC SCH ×5 (01:00→22:12)
[2017-06-13] MEDS: HYDROmorphone 1 mg/ml ISec IVP PRN ×5 (04:25→21:52)
[2017-06-13] MEDS: metroNIDAZOLE IV 500 mg/100 ml 500 MG/100 ML BAG IVPB SCH ×3 (05:45→22:03)
[2017-06-13 06:33] LABS: BASO # 0.01 K/mm3 (0.0-2.0); BASO % 0.1 % (0.0-3.0); EOS # 0.1 (0.0-0.7); EOS % 0.9 % (1.5-5.0); GRAN # 10.15 (1.4-6.5); GRAN % 80.4 % (50.0-68.0); HEMATOCRIT 34.1 % (36.0-48.0); LYMPH # 0.7 (1.2-3.4); LYMPH % 5.7 % (22.0-35.0); MEAN CELL VOLUME 82.8 fl (80.0-105.0); MEAN CORPUSCULAR HGB CONC 31.4 g/dl (31.0-37.0); MEAN PLATELET VOLUME 9.7 fl (7.0-11.0); MONO # 1.6 (0.1-0.6); MONO % 12.9 % (1.0-6.0); RED CELL DISTRIBUTION WIDTH 17.3 % (11.5-14.5); WHITE BLOOD COUNT 12.6 10^3/ul (4.5-11.0)
[2017-06-13 07:24] LABS: ALB/GLOB RATIO 0.9 (1.1-1.8); ALKALINE PHOSPHATASE 76 U/L (38-126); ALT/SGPT 42 U/L (7-56); AST/SGOT 48 U/L (14-36); BILIRUBIN,TOTAL 0.7 mg/dL (0.2-1.3); BLOOD UREA NITROGEN 17 mg/dL (7-21); CALCIUM 8.1 mg/dL (8.4-10.5); CARBON DIOXIDE 25 mmol/L (21-33); CHLORIDE 107 mmol/L (98-107); GFR AFRICAN-AMERICAN > 60; GLUCOSE,RANDOM 150 mg/dL (70-110); TOTAL PROTEIN 5.8 g/dL (5.8-8.3)
[2017-06-13 07:33] LABS: POTASSIUM 3.2 mmol/L (3.6-5.0); SODIUM 140 mmol/L (132-148)
--- NOTE | 2017-06-13 08:20 | HP ---
HISTORY OF PRESENT ILLNESS: The patient is a 67-year-old female who presents to the Emergency Room complaining of abdominal pain, nausea and vomiting. The patient had been experiencing this pain with nausea and vomiting over the past 2 days. She had been taking Zofran, which actually made her condition worse. She was feeling so weak and tired and pain was considerably worse; therefore she presented to the Emergency Room. The pain was described as mid epigastric. Tenderness radiating to the right upper quadrant and around to the right flank and back. PAST MEDICAL HISTORY: Positive for COPD, non-insulin dependent diabetes mellitus. She also has an autoimmune disorder, lupus like. She is status post appendectomy many years ago. ALLERGIES: SHE IS KNOWN TO BE ALLERGIC TO PENICILLIN, WHICH CAUSES SEVERE REACTION. IN THE PAST, SHE IS ALSO ALLERGIC TO STRAWBERRIES. MEDICATIONS: At the time of admission, her medications included aspirin 81 mg, Symbicort one inhalation daily, Cymbalta 25 mg once a day, glipizide 10 mg at bedside and 5 mg in the morning, methotrexate 2.5 mg once a week, Reglan 10 mg as needed, Zofran 4 mg as needed, primidone 25 mg at bedtime, metformin 500 mg twice a day and 30 mg Oxycodone 4 times a day as needed for chronic pain. SOCIAL HISTORY: She is . Lives with her and one daughter. She is a nonsmoker, nonalcoholic drinker. PHYSICAL EXAMINATION: VITAL SIGNS: In the Emergency Room, blood pressure was 88/52, heart rate was 99, temperature was 98.4 degrees Fahrenheit. HEAD, EYES, EARS, NOSE AND THROAT: Unremarkable. NECK: Supple with no lymphadenopathy. No goiter. LUNGS: Clear to auscultation and percussion. HEART: Regular. No murmurs are appreciated. ABDOMEN: Soft. There is mid epigastric tenderness. There is positive Cerda's punch. There is positive right CVA tenderness. Bowel sounds are normal. EXTREMITIES: Free of cyanosis, clubbing or edema. NEUROLOGIC: The patient is intact. LABORATORY DATA: Ultrasound of the gallbladder revealed multiple stones. Chest x-ray shows no acute disease. EKG shows regular sinus with left ventricular hypertrophy and nonspecific ST-T wave changes. The white blood cell count is markedly elevated at 32.1, hemoglobin and hematocrit is 14.1 and 43.2. Sodium is 131, potassium is 3.9. BUN is 29 and creatinine is 2.7. Of note is her LFTs, AST and ALT and alkaline phosphatase are all normal. IMPRESSION AND PLAN: The patient is admitted. We will be asking Dr. Calhoun, the Surgeon to evaluate admitting diagnosis of an acute cholecystitis. Geraldo Toscano MD
--- NOTE | 2017-06-13 09:27 | OP ---
PROCEDURE DATE: 06/12/2017 PREOPERATIVE DIAGNOSIS: Acute cholecystitis, probably necrotic. POSTOPERATIVE DIAGNOSES: Acute cholecystitis with an incarcerated ventral hernia. SURGEON: Bob Calhoun MD SCALDER: Dr. Granados. DESCRIPTION OF PROCEDURE: In the operating room, patient was identified by name, name of procedure, laterality, and my diana. The patient was consented appropriately for a ventral herniorrhaphy and cholecystectomy. In the operating room, patient was identified by above and after successful time-out, the operation began with perioperative antibiotics. There was a large incarcerated hernia that was around the umbilicus above what seemed to be a ventral hernia separate from the umbilicus. An up and down incision was made on the prior incision. This was enlarged and the hernia sac was identified, the size of an orange. It came down to a neck that was 2 to 3 inches in length. This was circumferentially dissected and the peritoneum was felt circumferentially and it was uninvolved. The hernia sac was then removed and the hernia sac was when reduced as much as possible. It was a combination of colon, small bowel, and omentum. It was not obstructed, pushed back in the neutral position. Near the site, the large trocar was placed, several stitches were placed inferiorly and pulled up for tension and the skin was closed with towel clips. With some difficulty, the free space was identified and eventually a xiphoid 5 and two lateral 5s were placed. This was an acutely inflamed, but not necrotic gallbladder. Sweeping down of the omentum from the gallbladder, the gallbladder was aspirated of about 100 mL of white purulent material. Pulling on the fundus and eventually the infundibulum, there was a good traction and seen very clearly. The peritoneum on either side was swept down, a large node was identified and this was cleaned. On the under surface eventually we found the artery. The cystic duct was seen readily and dissected high up by the gallbladder. It was cleaned circumferentially, as was the artery. There was a branch of the artery on screen left, high up above the cystic artery; this was a branch, this was swept away from the gallbladder and left in situ. The cystic duct and artery were cleaned nicely. The posterior dissection between the two cystic duct and artery showed the liver and eventually we were able to get a clean sweep, identifying the view of safety starting from screen left through to screen right. a cholangiogram, the anatomy was clear, the view of safety was seen. The cystic duct was doubly clipped, as was the artery and the gallbladder taken off the liver bed using both the spatula and the hook. Eventually, the gallbladder was removed and placed in a bag. There was a bleeding site that was cauterized and bled for a while, but eventually this cauterized very nicely. The area was irrigated and dried. The Wilberto was eventually placed. The gallbladder was taken out through the umbilicus after hemostasis and the right upper quadrant was examined and the drain was placed. It was trimmed and sutured in place. The hernia was then examined. It was otherwise unremarkable. Additional stitches were placed in a [id number] manner. Before the things were tied, it was swept and there was nothing unusual. With the Evelin's on, holding up the fascia very nicely, the incisions were serially closed. The space was taken with a Vicryl. Skin was closed with subcuticular and then all incisions were closed with subcuticular and Dermabond. Light pressure was applied. The wounds were injected with Marcaine. The patient was taken to recovery room in good condition after the sponge and needle counts were declared correct. Bob Calhoun MD
[2017-06-13] MEDS: oxyCODONE 30 mg Immediate Release Tab PO SCH ×4 (09:41→18:31)
[2017-06-13] MEDS ORDERED: Potassium Chloride 20 mEq ER Tab PO STA (09:43)
[2017-06-13] MEDS: Non Formulary Medication (Budesonide/Formoterol Fumarate [Symbicort 160-4.5 Mcg Inhaler] 1 IH SCH (10:00)
[2017-06-13] MEDS: Sodium Chloride 0.9% 1,000 ML IV SCH ×2 (10:25→22:04)
--- NOTE | 2017-06-13 10:30 | CP.PCM.PN ---
Subjective - Date & Time of Evaluation Date of Evaluation: 06/13/17 Time of Evaluation: 10:27 - Subjective Subjective: General Surgery - Dr. Calhoun Pt S&E> NAEO. Pt complains of abdominal pain near surgical incisions and guadalupe. the drain site. She states it is controlled with current med regimen. Pt tolerated some liquids this morning for breakfast but states that she is afraid to eat. Encouraged pt. to eat if she is hungry. Pt denies any N/V, F/C, SOB/ CP. She is OOB to chair and working with IS. Wilberto drain w/ 70cc serosanguinous drainage Objective - Vital Signs/Intake and Output Vital Signs (last 24 hours): Temp Pulse Resp BP Pulse Ox 98.9 F 75 20 160/82 H 96 06/13/17 06:00 06/13/17 06:00 06/13/17 06:00 06/13/17 06:00 06/13/17 06:00 Intake and Output: 06/13/17 06/13/17 06:59 18:59 Intake Total 300 Output Total 870 Balance -570 - Medications Medications: Current Medications Acetaminophen (Tylenol 325mg Tab) 650 mg PO Q4H PRN PRN Reason: Pain, Mild (1-3) Last Admin: 06/12/17 23:57 Dose: 650 mg Duloxetine HCl (Cymbalta) 30 mg PO DAILY [facility] Last Admin: 06/13/17 09:56 Dose: Not Given Glipizide (Glucotrol) 5 mg PO DAILY [facility] Last Admin: 06/13/17 09:41 Dose: 5 mg Glipizide (Glucotrol) 10 mg PO [facility] Last Admin: 06/12/17 22:28 Dose: Not Given Hydromorphone HCl (Dilaudid) 1 mg IVP Q3H PRN PRN Reason: Pain, moderate (4-7) Last Admin: 06/13/17 08:22 Dose: 1 mg Metronidazole (Flagyl) 500 mg in 100 mls @ 100 mls/hr IVPB Q8 [facility] PRN Reason: Protocol Last Admin: 06/13/17 05:45 Dose: 100 mls/hr Sodium Chloride (Sodium Chloride 0.9%) 1,000 mls @ 125 mls/hr IV .Q8H [facility] Last Admin: 06/12/17 23:54 Dose: 125 mls/hr Insulin Human Regular (Humulin R Low) 0 units SC ACHS [facility] PRN Reason: Protocol Last Admin: 06/13/17 08:39 Dose: 1 units Metformin HCl (Glucophage) 500 mg PO BID [facility] Last Admin: 06/13/17 09:41 Dose: 500 mg Non-Formulary Medication (Budesonide/Formoterol Fumarate [Symbicort 160-4.5 Mcg Inhaler]) 1 aer IH DAILY [facility] Last Admin: 06/13/17 10:00 Dose: 1 aer Ondansetron HCl (Zofran Inj) 4 mg IVP Q4 PRN PRN Reason: Nausea/Vomiting Last Admin: 06/12/17 04:24 Dose: 4 mg Ondansetron HCl (Zofran Odt) 4 mg PO Q6H PRN PRN Reason: Nausea/Vomiting Oxycodone HCl (Oxycodone Immediate Release Tab) 30 mg PO QID [facility] Last Admin: 06/13/17 09:41 Dose: 30 mg Pantoprazole Sodium (Protonix Inj) 40 mg IVP DAILY [facility] Last Admin: 06/13/17 09:41 Dose: 40 mg Primidone (Mysoline) 25 mg PO HS [facility] Last Admin: 06/13/17 01:01 Dose: Not Given - Labs Labs: 06/13/17 06:00 06/13/17 06:00 PT 15.4 SECONDS (9.4-12.5) H 06/12/17 05:00 INR 1.39 (0.93-1.08) H 06/12/17 05:00 APTT 29.7 Seconds (25.1-36.5) 06/12/17 05:00 - Constitutional Appears: No Acute Distress - Head Exam Head Exam: ATRAUMATIC, NORMAL INSPECTION, NORMOCEPHALIC - Eye Exam Eye Exam: Normal appearance - ENT Exam ENT Exam: Mucous Membranes Moist - Respiratory Exam Respiratory Exam: NORMAL BREATHING PATTERN. absent: Respiratory Distress - GI/Abdominal Exam GI & Abdominal Exam: Soft, Tenderness (appropriately tender near incisions). absent: Firm, Guarding, Rigid, Rebound Additional comments: wilberto drain w/ serosanguinous drainage, incisions c/d/i with dermabond - Neurological Exam Neurological Exam: Alert, Oriented x3 - Psychiatric Exam Psychiatric exam: Normal Affect, Normal Mood - Skin Skin Exam: Dry, Intact Assessment and Plan - Assessment and Plan (Free Text) Assessment: 67 yo F w/ acute cholecystitis, S/P Lap Aicha and Ventral hernia repair, POD #1 -Doing well post-operatively -Continue Regular diet -Pain control PRN -Continue Abx -Encourage OOB, Incentive Spirometer -PT to get ambulating DW Dr. Lj Granados PGY3
--- NOTE | 2017-06-13 10:47 | PN ---
DAILY PROGRESS NOTE DATE: 06/12/2017 SUBJECTIVE: The patient is a 67-year-old female with a history of COPD, [id number] diabetes mellitus, and lupus like autoimmune disorder, status post appendectomy many years ago, who presented to the emergency room complaining of vomiting, nausea, right upper quadrant pain radiating to the right side. Ultrasound showed multiple gallbladder calculi and thickened gallbladder wall. Of note is her liver enzymes and alkaline phosphatase were surprisingly negative. She was evaluated by the surgeon, Dr. Calhoun, taken to the OR and underwent laparoscopic cholecystectomy. When seen this evening, she is lying in bed. She is complaining of postsurgical pain as to be expected. Her daughter is at bedside. PHYSICAL EXAMINATION: LUNGS: Her lungs are clear anteriorly. HEART: Regular. VITAL SIGNS: Her blood pressure was 136/70 and heart rate of 95. LABORATORY DATA: This morning's laboratory studies preop shows a white blood cell count to be 14.7, hemoglobin and hematocrit 11.1 and 35.4. Blood urea nitrogen was 25, creatinine 1.1, sodium 139, potassium 3.7. PLAN: So, we will be the following the patient through her postop course. I did not expect any complications at this time; however, the patient will probably be asking for more and more analgesics for pain relief which we will be careful of. Geraldo Toscano MD
--- NOTE | 2017-06-13 16:12 | PN ---
This is postop day#1, doing well, afebrile, blood pressure is up a little bit, making good urine, 70 mL serosanguineous drained. Complaining of some abdominal pain. The white count is 12. SGOT is 48. Bilirubin and ALT are normal. The patient is doing well. I am increasing the diet. Bob Calhoun MD
[2017-06-14] MEDS: oxyCODONE 30 mg Immediate Release Tab PO SCH ×2 (02:26→09:09)
[2017-06-14] MEDS: Sodium Chloride 0.9% 1,000 ML IV SCH (05:18)
[2017-06-14] MEDS: metroNIDAZOLE IV 500 mg/100 ml 500 MG/100 ML BAG IVPB SCH (05:19)
[2017-06-14] MEDS: HYDROmorphone 1 mg/ml ISec IVP PRN (05:19)
[2017-06-14 06:08] VITALS: O2SAT 94
[2017-06-14 06:39] LABS: HEMATOCRIT 33.1 % (36.0-48.0); MEAN CELL VOLUME 83.4 fl (80.0-105.0); MEAN CORPUSCULAR HEMOGLOBIN 25.9 pg (25.0-35.0); MEAN CORPUSCULAR HGB CONC 31.1 g/dl (31.0-37.0); MEAN PLATELET VOLUME 9.7 fl (7.0-11.0); RED CELL DISTRIBUTION WIDTH 17.5 % (11.5-14.5)
[2017-06-14 07:26] LABS: ALB/GLOB RATIO 0.9 (1.1-1.8); ALKALINE PHOSPHATASE 75 U/L (38-126); ALT/SGPT 45 U/L (7-56); AST/SGOT 54 U/L (14-36); BILIRUBIN,TOTAL 0.7 mg/dL (0.2-1.3); BLOOD UREA NITROGEN 14 mg/dL (7-21); CALCIUM 8.2 mg/dL (8.4-10.5); CARBON DIOXIDE 25 mmol/L (21-33); CHLORIDE 108 mmol/L (98-107); GFR AFRICAN-AMERICAN > 60; GLUCOSE,RANDOM 119 mg/dL (70-110); POTASSIUM 3.4 mmol/L (3.6-5.0); SODIUM 139 mmol/L (132-148)
[2017-06-14] MEDS: Insulin Reg-LOW-Coverage SC SCH ×2 (08:10→11:59)
[2017-06-14] MEDS ORDERED: Potassium Chloride 20 mEq ER Tab PO ONE (08:18)
[2017-06-14] MEDS ORDERED: Oxycodone/Acetaminophen 5/325 mg Tab PO PRN (09:32)
--- NOTE | 2017-06-14 09:52 | CP.PCM.PN ---
Subjective - Date & Time of Evaluation Date of Evaluation: 06/14/17 Time of Evaluation: 09:49 - Subjective Subjective: PGY1 Note for Dr. Calhoun Patient seen and examined at bedside. Passing gas, No BM yet. Tolerating diet. Still states she is still having pain but takes chronic pain medicine at home for autoimmune disease causing her whole body pain. Objective - Vital Signs/Intake and Output Vital Signs (last 24 hours): Temp Pulse Resp BP Pulse Ox 98.4 F 59 L 19 157/81 H 94 L 06/14/17 06:00 06/14/17 06:00 06/14/17 06:00 06/14/17 06:00 06/14/17 06:00 Intake and Output: 06/14/17 06/14/17 06:59 18:59 Intake Total 2545 Output Total 1090 Balance 1455 - Medications Medications: Current Medications Acetaminophen (Tylenol 325mg Tab) 650 mg PO Q4H PRN PRN Reason: Pain, Mild (1-3) Last Admin: 06/12/17 23:57 Dose: 650 mg Ciprofloxacin (Cipro) 500 mg PO Q12 [facility] PRN Reason: Protocol Stop: 06/20/17 09:28 Docusate Sodium (Colace) 100 mg PO BID [facility] Duloxetine HCl (Cymbalta) 30 mg PO DAILY [facility] Last Admin: 06/14/17 09:23 Dose: Not Given Glipizide (Glucotrol) 5 mg PO DAILY [facility] Last Admin: 06/14/17 09:09 Dose: 5 mg Glipizide (Glucotrol) 10 mg PO HS [facility] Last Admin: 06/13/17 21:56 Dose: 10 mg Insulin Human Regular (Humulin R Low) 0 units SC ACHS [facility] PRN Reason: Protocol Last Admin: 06/14/17 08:10 Dose: 1 units Ketorolac Tromethamine (Toradol) 30 mg IVP Q6H PRN PRN Reason: Pain, moderate (4-7) Metformin HCl (Glucophage) 500 mg PO BID [facility] Last Admin: 06/14/17 09:09 Dose: 500 mg Non-Formulary Medication (Budesonide/Formoterol Fumarate [Symbicort 160-4.5 Mcg Inhaler]) 1 aer IH DAILY [facility] Last Admin: 06/13/17 10:00 Dose: 1 aer Ondansetron HCl (Zofran Inj) 4 mg IVP Q4 PRN PRN Reason: Nausea/Vomiting Last Admin: 06/12/17 04:24 Dose: 4 mg Ondansetron HCl (Zofran Odt) 4 mg PO Q6H PRN PRN Reason: Nausea/Vomiting Last Admin: 06/14/17 08:54 Dose: 4 mg Oxycodone HCl (Oxycodone Immediate Release Tab) 30 mg PO Q6H [facility] Pantoprazole Sodium (Protonix Inj) 40 mg IVP DAILY [facility] Last Admin: 06/14/17 09:09 Dose: 40 mg Primidone (Mysoline) 25 mg PO HS [facility] Last Admin: 06/13/17 22:10 Dose: Not Given - Labs Labs: 06/14/17 06:00 06/14/17 06:00 PT 15.4 SECONDS (9.4-12.5) H 06/12/17 05:00 INR 1.39 (0.93-1.08) H 06/12/17 05:00 APTT 29.7 Seconds (25.1-36.5) 06/12/17 05:00 - Constitutional Appears: Well, Non-toxic, No Acute Distress - Head Exam Head Exam: ATRAUMATIC, NORMAL INSPECTION, NORMOCEPHALIC - Eye Exam Eye Exam: EOMI Pupil Exam: NORMAL ACCOMODATION - ENT Exam ENT Exam: Mucous Membranes Moist - Neck Exam Neck Exam: Full ROM - Respiratory Exam Respiratory Exam: Clear to Ausculation Bilateral - Cardiovascular Exam Cardiovascular Exam: REGULAR RHYTHM - GI/Abdominal Exam GI & Abdominal Exam: Soft, Normal Bowel Sounds. absent: Distended, Tenderness Additional comments: sandra drain draining 20ml over 12 hours of serosanginous fluid - Extremities Exam Extremities Exam: absent: Joint Swelling, Tenderness - Neurological Exam Neurological Exam: Alert, Awake, Oriented x3 - Psychiatric Exam Psychiatric exam: Normal Affect, Normal Mood - Skin Skin Exam: Dry, Intact, Normal Color, Warm Assessment and Plan - Assessment and Plan (Free Text) Assessment: 67F POD2 Lap luda and ventral hernia repair Plan: * Cipro 500mg PO Q12 for 7 days, started today * TCU consult * Will remove sandra before d/c * Continue ambulation * Monitor for BM * F/U with Dr. Calhoun in 7-10 days in his office. Please call to make an appointment
--- NOTE | 2017-06-14 09:55 | PN ---
DATE: 06/13/2017 SUBJECTIVE: The patient is seen this Monday at noon time in room number 371, bed 2. She is sitting out of bed in a chair, awake, alert, clear and in good spirits, had a successful laparoscopic cholecystectomy and hernia repair. She is doing well and tolerating foods. Now for the first time, she is awake, alert, clear and appropriate. Only concern was needing analgesics for pain control, but Percocet did not seem adequate, IV morphine and IV opiates worked better. I explained to her this is because of her chronic long-standing opiate use, and how she has become desensitized to these medications requiring higher than usual doses. PHYSICAL EXAMINATION: HEENT: Head and neck are unremarkable. LUNGS: Show good aeration, right and left. EXTREMITIES: Show no edema. IMPRESSION: Status post acute cholecystitis, cholelithiasis, now post cholecystectomy. PLAN: The patient is improving clinically, is nearing the point of being ready for discharge to home soon. I offered early option of Transitional Care Unit for up to 8 days of physical therapy. I will decrease her IV fluids and tomorrow she would let us know if she should be ready for discharge to home versus TCU. Bob Toscano MD
[2017-06-14] MEDS ORDERED: oxyCODONE 30 mg Immediate Release Tab PO SCH (10:00)
[2017-06-14] MEDS: Non Formulary Medication (Budesonide/Formoterol Fumarate [Symbicort 160-4.5 Mcg Inhaler] 1 IH SCH (10:26)
[2017-06-14 12:44] VITALS: BP 125/68; PULSE 65; RESP 20; TEMP 98.5
--- NOTE | 2017-06-15 09:23 | PQF SEPSIS ---
This form is a permanent part of the medical record DR. CARTER, "Sepsis due to acute cholecystitis" noted in consult, please verify if Sepsis is present on admission. Thank you Clarification of your documentation is requested to better reflect the severity of illness and intensity of treatment of your patient. Indicators present [] Temp < 96.8 or > 100.4 [] WBC count > 12,000/mm3 or <000/mm3 or 10% immature neutrophils [] Heart Rate > 90 [] Respiratory Rate > 20 [] Fever or hypothermia [] Chills [] Positive blood cultures [] Hypotension [] Metabolic acidosis (Elevated lactate level, anion gap or reduced blood pH) [] Acute confusion /Altered Mental Status [] Shock [] Other: [] Location in the medical record that reflects the above clinical findings: [] Treatment Provided: [] PHYSICIAN'S RESPONSE; yup Based on your medical judgment of the clinical indicators outlined above, are you treating this patient for a known or suspected: [x] Sepsis / Septicemia Please specify organism if known [] [] SIRS (Systemic Inflammatory Response Syndrome) [] Severe Sepsis (Sepsis with Associated Organ Dysfunction) [] Fever of Unknown Origin [] Other, please indicate: [] [] If Unable to Determine, please check the box, sign and date. Present On Admission (POA) Indicator: [x] Present at the time of admission [] Not present at the time of admission [] Clinically Undetermined In responding to this query, please exercise your independent professional judgment. The fact that a question is asked does not imply that any particular answer is desired or expected. Thank you for your clarification on this documentation. If you have any questions please call:[ ] * Thank you, [ X] Manjula junior programmer MIREYA
== END 2017-06-14 15:37 | DRG 854 ==
LOC: ED 19:56 → ERH 23:08 → 3RSO 06-11 01:50
PROVIDERS: ADMIT Internal Medicine; ATTEND Internal Medicine
PROC: 0FT44ZZ Resection of Gallbladder, Percutaneous Endoscopic Approach (ICD-10-PCS; principal; 2017-06-12 07:30)
PROC: 0WQF4ZZ Repair Abdominal Wall, Percutaneous Endoscopic Approach (ICD-10-PCS; 2017-06-12 07:30)
DX: A41.9 Sepsis, unspecified organism (principal); K80.00 Calculus of gallbladder with acute cholecystitis without obstruction; K43.6 Other and unspecified ventral hernia with obstruction, without gangrene; N17.9 Acute kidney failure, unspecified; E11.22 Type 2 diabetes mellitus with diabetic chronic kidney disease; J44.9 Chronic obstructive pulmonary disease, unspecified; K21.9 Gastro-esophageal reflux disease without esophagitis; E78.5 Hyperlipidemia, unspecified; G89.29 Other chronic pain; N18.9 Chronic kidney disease, unspecified; I12.9 Hypertensive chronic kidney disease with stage 1 through stage 4 chronic kidney disease, or unspecified chronic kidney disease; E86.0 Dehydration; Z79.84 Long term (current) use of oral hypoglycemic drugs; Z79.82 Long term (current) use of aspirin; Z96.659 Presence of unspecified artificial knee joint; Z90.49 Acquired absence of other specified parts of digestive tract; Z87.891 Personal history of nicotine dependence; Z88.0 Allergy status to penicillin

== ENCOUNTER 2017-06-14 15:40 | Inpatient (IN) | payer OTHER, BC ==
[2017-06-14] MEDS: oxyCODONE 30 mg Immediate Release Tab PO SCH ×2 (17:44→22:28)
[2017-06-14 18:59] VITALS: BMI 38.2
[2017-06-14] MEDS ORDERED: Influenza Vaccine 60 mcg/0.5 mL SYR (4YR UP) IM ONE (18:59)
[2017-06-14] MEDS ORDERED: Pneumococcal 23-Valent Vaccine IM ONE (18:59)
[2017-06-14] MEDS: Insulin Reg-LOW-Coverage SC SCH (21:57)
[2017-06-15] MEDS: oxyCODONE 30 mg Immediate Release Tab PO SCH ×3 (05:10→17:06)
[2017-06-15] MEDS: Pantoprazole 40 mg EC Tab PO SCH (05:11)
[2017-06-15 06:32] LABS: BASO # 0.04 K/mm3 (0.0-2.0); BASO % 0.4 % (0.0-3.0); EOS # 0.4 (0.0-0.7); GRAN # 6.87 (1.4-6.5); GRAN % 70.5 % (50.0-68.0); HEMATOCRIT 33.5 % (36.0-48.0); LYMPH # 1.6 (1.2-3.4); LYMPH % 16.4 % (22.0-35.0); MEAN CELL VOLUME 83.3 fl (80.0-105.0); MEAN CORPUSCULAR HEMOGLOBIN 25.9 pg (25.0-35.0); MEAN PLATELET VOLUME 9.7 fl (7.0-11.0); MONO # 0.9 (0.1-0.6); MONO % 8.7 % (1.0-6.0); RED CELL DISTRIBUTION WIDTH 17.7 % (11.5-14.5); WHITE BLOOD COUNT 9.8 10^3/ul (4.5-11.0)
[2017-06-15] MEDS: Insulin Reg-LOW-Coverage SC SCH ×4 (07:03→22:50)
[2017-06-15 07:50] LABS: ALB/GLOB RATIO 0.9 (1.1-1.8); ALKALINE PHOSPHATASE 74 U/L (38-126); ALT/SGPT 49 U/L (7-56); AST/SGOT 53 U/L (14-36); BILIRUBIN,TOTAL 0.5 mg/dL (0.2-1.3); BLOOD UREA NITROGEN 20 mg/dL (7-21); CALCIUM 8.5 mg/dL (8.4-10.5); CARBON DIOXIDE 27 mmol/L (21-33); CHLORIDE 107 mmol/L (98-107); GFR AFRICAN-AMERICAN > 60; GLUCOSE,RANDOM 107 mg/dL (70-110); POTASSIUM 3.5 mmol/L (3.6-5.0); SODIUM 140 mmol/L (132-148); TOTAL PROTEIN 5.8 g/dL (5.8-8.3)
[2017-06-15] MEDS ORDERED: Potassium Chloride 20 mEq ER Tab PO ONE (08:32)
[2017-06-15 16:23] VITALS: RESP 20
[2017-06-16] MEDS: oxyCODONE 30 mg Immediate Release Tab PO SCH ×5 (04:58→22:40)
[2017-06-16] MEDS: Pantoprazole 40 mg EC Tab PO SCH (04:59)
[2017-06-16 05:52] VITALS: BP 131/55; PULSE 76; TEMP 99; O2SAT 97
[2017-06-16] MEDS: Insulin Reg-LOW-Coverage SC SCH ×4 (06:36→23:23)
--- NOTE | 2017-06-16 07:33 | CP.PCM.PN ---
Subjective - Date & Time of Evaluation Date of Evaluation: 06/16/17 Time of Evaluation: 07:30 - Subjective Subjective: Surgery Pt s&e. NAEON. Denies F/C/N/V/D. Pain controlled. TOlerating diet. + amb. + void.+ BM Objective - Vital Signs/Intake and Output Vital Signs (last 24 hours): Temp Pulse Resp BP Pulse Ox 99 F 76 20 131/55 L 97 06/16/17 05:52 06/16/17 05:52 06/16/17 05:52 06/16/17 05:52 06/16/17 05:52 Intake and Output: 06/16/17 06/16/17 06:59 18:59 Intake Total 540 Balance 540 - Medications Medications: Current Medications Acetaminophen (Tylenol 325mg Tab) 650 mg PO Q4H PRN; Protocol PRN Reason: Pain, Mild (1-3) Ciprofloxacin (Cipro) 500 mg PO Q12 [facility] PRN Reason: Protocol Last Admin: 06/15/17 21:38 Dose: 500 mg Docusate Sodium (Colace) 100 mg PO BID [facility] PRN Reason: Protocol Last Admin: 06/15/17 17:09 Dose: 100 mg Duloxetine HCl (Cymbalta) 30 mg PO DAILY [facility] PRN Reason: Protocol Last Admin: 06/15/17 10:51 Dose: 30 mg Glipizide (Glucotrol) 5 mg PO DAILY [facility] PRN Reason: Protocol Last Admin: 06/15/17 10:51 Dose: 5 mg Glipizide (Glucotrol) 10 mg PO HS [facility] PRN Reason: Protocol Last Admin: 06/15/17 21:38 Dose: 10 mg Insulin Human Regular (Humulin R Low) 0 units SC ACHS [facility] PRN Reason: Protocol Last Admin: 06/16/17 06:36 Dose: 1 units Ketorolac Tromethamine (Toradol) 30 mg IVP Q6H PRN; Protocol PRN Reason: Pain, moderate (4-7) Stop: 06/19/17 22:01 Last Admin: 06/15/17 06:54 Dose: 30 mg Ketorolac Tromethamine (Toradol) 15 mg IM Q6 [facility] Stop: 06/20/17 08:29 Last Admin: 06/16/17 05:53 Dose: Not Given Metformin HCl (Glucophage) 500 mg PO BID [facility] PRN Reason: Protocol Last Admin: 06/15/17 17:09 Dose: 500 mg Budesonide/Formoterol Fumarate [Symbicort 160-4.5 Mcg Inhaler] 1 aer IH DAILY [facility] Ondansetron HCl (Zofran Odt) 4 mg PO Q6H PRN; Protocol PRN Reason: Nausea/Vomiting Last Admin: 06/15/17 20:33 Dose: 4 mg Ondansetron HCl (Zofran Inj) 4 mg IVP Q4H PRN; Protocol PRN Reason: Nausea/Vomiting Oxycodone HCl (Oxycodone Immediate Release Tab) 30 mg PO Q6H [facility] PRN Reason: Protocol Last Admin: 06/16/17 04:59 Dose: 30 mg Pantoprazole Sodium (Protonix Ec Tab) 40 mg PO 0600 [facility] Last Admin: 06/16/17 04:59 Dose: 40 mg Primidone (Mysoline) 25 mg PO HS [facility] PRN Reason: Protocol Last Admin: 06/15/17 21:37 Dose: 25 mg - Labs Labs: 06/15/17 05:30 06/15/17 05:30 - Constitutional Appears: No Acute Distress - Head Exam Head Exam: ATRAUMATIC, NORMAL INSPECTION, NORMOCEPHALIC - Eye Exam Eye Exam: EOMI, Normal appearance, PERRL Pupil Exam: NORMAL ACCOMODATION, PERRL - ENT Exam ENT Exam: Mucous Membranes Moist, Normal Exam - Neck Exam Neck Exam: Full ROM, Normal Inspection. absent: Lymphadenopathy - Respiratory Exam Respiratory Exam: Clear to Ausculation Bilateral, NORMAL BREATHING PATTERN - Cardiovascular Exam Cardiovascular Exam: REGULAR RHYTHM, +S1, +S2. absent: Murmur - GI/Abdominal Exam GI & Abdominal Exam: Soft, Tenderness, Normal Bowel Sounds. absent: Distended, Firm, Guarding, Rigid Additional comments: Incision C/D/I. TTP on incisions. - Extremities Exam Extremities Exam: Full ROM, Normal Capillary Refill, Normal Inspection. absent : Joint Swelling, Pedal Edema - Back Exam Back Exam: NORMAL INSPECTION - Neurological Exam Neurological Exam: Alert, Awake, CN II-XII Intact, Normal Gait, Oriented x3 - Psychiatric Exam Psychiatric exam: Normal Affect, Normal Mood - Skin Skin Exam: Dry, Intact, Normal Color, Warm Assessment and Plan - Assessment and Plan (Free Text) Assessment: 67F POD4 s/p Lap luda and ventral hernia repair Plan: * Cipro 500mg PO Q12 for day 3/7 * Will remove sandra before d/c * Continue ambulation * OK to DC for surgical standpoint. * F/U with Dr. Calhoun in 7-10 days in his office. Please call to make an appointment
[2017-06-17] MEDS: oxyCODONE 30 mg Immediate Release Tab PO SCH ×2 (05:15→10:43)
[2017-06-17] MEDS: Pantoprazole 40 mg EC Tab PO SCH (05:15)
[2017-06-17] MEDS: Insulin Reg-LOW-Coverage SC SCH ×2 (06:30→12:30)
--- NOTE | 2017-06-17 08:39 | CP.PCM.PN ---
Subjective - Date & Time of Evaluation Date of Evaluation: 06/17/17 Time of Evaluation: 08:36 - Subjective Subjective: Surgery Pt s&e. NAEON. Denies F/C?N/V/D/CP/SOB. + void. + BM. TOlerating diet. Pain controlled. Objective - Vital Signs/Intake and Output Vital Signs (last 24 hours): Temp Pulse Resp BP Pulse Ox 99 F 76 20 131/55 L 97 06/16/17 05:52 06/16/17 05:52 06/16/17 05:52 06/16/17 05:52 06/16/17 05:52 - Medications Medications: Current Medications Acetaminophen (Tylenol 325mg Tab) 650 mg PO Q4H PRN; Protocol PRN Reason: Pain, Mild (1-3) Ciprofloxacin (Cipro) 500 mg PO Q12 [facility] PRN Reason: Protocol Last Admin: 06/16/17 21:43 Dose: 500 mg Docusate Sodium (Colace) 100 mg PO BID [facility] PRN Reason: Protocol Last Admin: 06/16/17 17:03 Dose: 100 mg Duloxetine HCl (Cymbalta) 30 mg PO DAILY [facility] PRN Reason: Protocol Last Admin: 06/16/17 10:40 Dose: 30 mg Glipizide (Glucotrol) 5 mg PO DAILY [facility] PRN Reason: Protocol Last Admin: 06/16/17 10:40 Dose: Not Given Glipizide (Glucotrol) 10 mg PO HS [facility] PRN Reason: Protocol Last Admin: 06/16/17 21:43 Dose: 10 mg Insulin Human Regular (Humulin R Low) 0 units SC ACHS [facility] PRN Reason: Protocol Last Admin: 06/17/17 06:30 Dose: 1 units Ketorolac Tromethamine (Toradol) 30 mg IVP Q6H PRN; Protocol PRN Reason: Pain, moderate (4-7) Stop: 06/19/17 22:01 Last Admin: 06/15/17 06:54 Dose: 30 mg Metformin HCl (Glucophage) 500 mg PO BID [facility] PRN Reason: Protocol Last Admin: 06/16/17 17:04 Dose: 500 mg Budesonide/Formoterol Fumarate [Symbicort 160-4.5 Mcg Inhaler] 1 aer IH DAILY [facility] Last Admin: 06/16/17 17:03 Dose: Not Given Ondansetron HCl (Zofran Odt) 4 mg PO Q6H PRN; Protocol PRN Reason: Nausea/Vomiting Last Admin: 06/15/17 20:33 Dose: 4 mg Ondansetron HCl (Zofran Inj) 4 mg IVP Q4H PRN; Protocol PRN Reason: Nausea/Vomiting Oxycodone HCl (Oxycodone Immediate Release Tab) 30 mg PO Q6H [facility] PRN Reason: Protocol Last Admin: 06/17/17 05:15 Dose: 30 mg Pantoprazole Sodium (Protonix Ec Tab) 40 mg PO 0600 [facility] Last Admin: 06/17/17 05:15 Dose: 40 mg Primidone (Mysoline) 25 mg PO HS [facility] PRN Reason: Protocol Last Admin: 06/16/17 21:43 Dose: 25 mg - Labs Labs: 06/15/17 05:30 06/15/17 05:30 - Constitutional Appears: No Acute Distress - Head Exam Head Exam: ATRAUMATIC, NORMAL INSPECTION, NORMOCEPHALIC - Eye Exam Eye Exam: EOMI, Normal appearance, PERRL Pupil Exam: NORMAL ACCOMODATION, PERRL - ENT Exam ENT Exam: Mucous Membranes Moist, Normal Exam - Neck Exam Neck Exam: Full ROM, Normal Inspection. absent: Lymphadenopathy - Respiratory Exam Respiratory Exam: Clear to Ausculation Bilateral, NORMAL BREATHING PATTERN - Cardiovascular Exam Cardiovascular Exam: REGULAR RHYTHM, +S1, +S2. absent: Murmur - GI/Abdominal Exam GI & Abdominal Exam: Soft, Normal Bowel Sounds. absent: Distended, Tenderness - Extremities Exam Extremities Exam: Full ROM, Normal Capillary Refill, Normal Inspection. absent : Joint Swelling, Pedal Edema - Back Exam Back Exam: NORMAL INSPECTION - Neurological Exam Neurological Exam: Alert, Awake, CN II-XII Intact, Normal Gait, Oriented x3 - Psychiatric Exam Psychiatric exam: Normal Affect, Normal Mood - Skin Skin Exam: Dry, Intact, Normal Color, Warm Assessment and Plan - Assessment and Plan (Free Text) Assessment: 67F POD5 s/p Lap luda and ventral hernia repair Plan: * Cipro 500mg PO Q12 for day 4/7 * Continue ambulation * OK to DC for surgical standpoint. * F/U with Dr. Calhoun in 7-10 days in his office. Please call to make an appointment Will GINA Calhoun
--- NOTE | 2017-06-18 08:40 | DS ---
HISTORY OF PRESENT ILLNESS: This is a 67-year-old woman who was known for sometime who recently underwent a cholecystectomy, after presenting to the emergency room with cholangitis and obstruction. Postoperative course was slightly complicated with pain and her overall decondition status, so she came to the Transitional Care Unit to continue her antibiotics and for some physical therapy. Today is day three of her stay here on the TCU. She feels she is markedly improved, looks more awake and clear and alert from anesthesia with less pain, better able to ambulate and ready for discharge to home and so arrangements were made for her discharge. Course of hospital stay here in TCU is uneventful. She engaged in the activities of the unit, became more active and stronger in preparation for discharge. FINAL DISCHARGE DIAGNOSES: 1. Deconditioning. 2. Postoperative pain. 3. Postop cholecystectomy. 4. Acute cholecystitis and cholangitis. 5. Chronic back pain. 6. Diabetes. 7. Asthma/chronic obstructive pulmonary disease. 8. Past history of a question of lupus. 9. Status post appendectomy many years ago. 10. PENICILLIN ALLERGY. PLAN: Discharge to home. Follow up with us and with surgeon in one week. Bob Toscano MD MTDD
== END 2017-06-17 17:21 | disposition home or self-care (01) | DRG 445 ==
LOC: TRCU 15:40
PROVIDERS: ADMIT Internal Medicine; ATTEND Internal Medicine
PROC: F07Z9FZ Gait Training/Functional Ambulation Treatment using Assistive, Adaptive, Supportive or Protective Equipment (ICD-10-PCS; principal; 2017-06-15)
PROC: F08Z4FZ Home Management Treatment using Assistive, Adaptive, Supportive or Protective Equipment (ICD-10-PCS; 2017-06-15)
DX: K80.00 Calculus of gallbladder with acute cholecystitis without obstruction (principal); K83.0 Cholangitis; Z79.2 Long term (current) use of antibiotics; J44.9 Chronic obstructive pulmonary disease, unspecified; G89.29 Other chronic pain; M54.9 Dorsalgia, unspecified; E11.9 Type 2 diabetes mellitus without complications; G89.18 Other acute postprocedural pain; Z90.49 Acquired absence of other specified parts of digestive tract; Z88.0 Allergy status to penicillin

== ENCOUNTER 2017-07-03 21:07 | Emergency (ER) | payer MEDICARE, BC ==
[2017-07-03 22:17] VITALS: BMI 32.8
[2017-07-03 22:18] VITALS: RESP 18; O2SAT 96
--- NOTE | 2017-07-03 22:54 | ED PDOC ---
Arrival/HPI - General Chief Complaint: Abdominal Pain Time Seen by Provider: 07/03/17 21:26 Historian: Patient - History of Present Illness Narrative History of Present Illness (Text): 07/03/17 22:54 Genevieve Reynoso is a 67 year old female, whose past medical history includes diabetes, COPD, hypertension, hyperlipidemia, questionable lupus history, appendectomy, and GERD, who presents to the Emergency department complaining of redness mimimal discomfort at abdominal incisional site. Patient states she recently underwent a cholecystectomy and hernia repair, patient now reports pain around the incisional aite with associated redness to the area. Patient was placed on antibiotics by surgeon but states it has not improved. Patient also complaining of pain to her left upper thigh since yesterday evening.Concerned for possible clot. Patient denies any fever, chills, chest pain, shortness of breath, nausea, vomiting, back pain, neck pain, headache, dizziness, or any other complaints. Surgeon: Dr. Calhoun PMD: Dr. Toscano Symptom Onset: Gradual Symptom Course: Unchanged Activities at Onset: Light Context: Home Past Medical History - Provider Review Nursing Documentation Reviewed: Yes - Infectious Disease Hx of Infectious Diseases: None - Tetanus Immunization Tetanus Immunization: Unknown - Reproductive Menopause: Yes - Cardiac Hx Cardiac Disorders: No - Pulmonary Hx Respiratory Disorders: Yes Hx Chronic Obstructive Pulmonary Disease (COPD): Yes - Neurological Hx Neurological Disorder: No - HEENT Hx HEENT Disorder: Yes (eyeglasses) - Renal Hx Renal Disorder: No - Endocrine/Metabolic Hx Endocrine Disorders: Yes Hx Diabetes Mellitus Type 2: Yes - Hematological/Oncological Hx Blood Disorders: Yes Other/Comment: 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"; acute allergic nephritis - Integumentary Hx Dermatological Disorder: No - Musculoskeletal/Rheumatological Hx Musculoskeletal Disorders: Yes Hx Falls: Yes (11/2016 Mechanical Fall) - Gastrointestinal Hx Gastrointestinal Disorders: Yes (POST LAP ARIN,HERNIORHAPPHY) - Genitourinary/Gynecological Hx Genitourinary Disorders: No Hx Reproductive Disorders: No - Psychiatric Hx Psychophysiologic Disorder: No Hx Substance Use: No - Surgical History Hx Cholecystectomy: Yes Hx Orthopedic Surgery: Yes (Right Knee) - Anesthesia Hx Anesthesia: No Hx Anesthesia Reactions: No Hx Malignant Hyperthermia: No - Suicidal Assessment Feels Threatened In Home Enviroment: No Family/Social History - Physician Review Nursing Documentation Reviewed: Yes Family/Social History: Unknown Family HX Smoking Status: Former Smoker Hx Alcohol Use: No Hx Substance Use: No Hx Substance Use Treatment: No Allergies/Home Meds Allergies/Adverse Reactions: Allergies Penicillins Allergy (Verified 07/03/17 22:24) ANAPHYLAXIS strawberry Allergy (Verified 07/03/17 22:24) ITCHING Home Medications: Home Meds Medication Instructions Recorded Confirmed Aspirin [Adult Low Dose Aspirin EC] 81 mg PO DAILY 06/10/17 07/03/17 Budesonide/Formoterol Fumarate 1 aer IH DAILY 06/10/17 07/03/17 [Symbicort 160-4.5 Mcg Inhaler] DULoxetine [Cymbalta] 25 mg PO DAILY 06/10/17 07/03/17 GlipiZIDE [Glucotrol] 5 mg PO DAILY 06/10/17 07/03/17 Methotrexate 2.5 mg PO SAT 06/10/17 07/03/17 Metoclopramide [Reglan] 10 mg PO PRN PRN 06/10/17 07/03/17 Ondansetron ODT [Zofran ODT] 4 mg PO PRN PRN 06/10/17 07/03/17 Primidone [Mysoline] 25 mg PO HS 06/10/17 07/03/17 metFORMIN [glucOPHAGE] 500 mg PO BID 06/10/17 07/03/17 oxyCODONE [oxyCODONE Immediate 30 mg PO QID 06/10/17 07/03/17 Release Tab] Review of Systems - Physician Review All systems were reviewed & negative as marked: Yes - Review of Systems Constitutional: Normal. absent: Fevers Eyes: Normal ENT: Normal Respiratory: Normal. absent: SOB, Cough Cardiovascular: Normal. absent: Chest Pain Gastrointestinal: absent: Diarrhea, Nausea, Vomiting Genitourinary Female: Normal Musculoskeletal: Other (+left upper thigh pain). absent: Back Pain, Neck Pain Skin: Cellulitis Neurological: Normal. absent: Headache, Dizziness Endocrine: Normal Hemo/Lymphatic: Normal Psychiatric: Normal Physical Exam Vital Signs Reviewed: Yes Vital Signs Temp Pulse Resp BP Pulse Ox 07/03/17 22:17 98.6 F 74 18 148/77 96 Temperature: Afebrile Blood Pressure: Normal Pulse: Regular Respiratory Rate: Normal Appearance: Positive for: Well-Appearing, Non-Toxic, Comfortable Pain Distress: None Mental Status: Positive for: Alert and Oriented X 3 - Systems Exam Head: Present: Atraumatic, Normocephalic Pupils: Present: PERRL Extroacular Muscles: Present: EOMI Conjunctiva: Present: Normal Mouth: Present: Moist Mucous Membranes Neck: Present: Normal Range of Motion Respiratory/Chest: Present: Clear to Auscultation, Good Air Exchange. No: Respiratory Distress, Accessory Muscle Use Cardiovascular: Present: Regular Rate and Rhythm, Normal S1, S2. No: Murmurs Abdomen: Present: Normal Bowel Sounds, Other (Minimal erythema to abdominal incisional site, leyla noted/no wound discharge). No: Tenderness, Distention , Peritoneal Signs Back: Present: Normal Inspection Upper Extremity: Present: Normal Inspection. No: Cyanosis, Edema Lower Extremity: Present: Normal Inspection, NORMAL PULSES, Normal ROM, Tenderness (Minimal palpable tenderness to left upper inner thigh/no erythema or swelling), Neurovascularly Intact, Capillary Refill < 2 s. No: Edema, CALF TENDERNESS, Norris's Sign, Erythema, Deformity Neurological: Present: GCS=15, CN II-XII Intact, Speech Normal, Motor Func Grossly Intact, Normal Sensory Function Skin: Present: Warm, Dry, Normal Color. No: Rashes Psychiatric: Present: Alert, Oriented x 3, Normal Insight, Normal Concentration Medical Decision Making ED Course and Treatment: 07/03/17 22:54 Impression: 67 year old female complaining of pain to abdominal incisional site with associated redness. Pt also c/o left upper thigh pain. Plan: -- US Duplex Lower Extremities -- Labs, blood cultures -- IV fluids -- Zofran -- Morphine -- Reassess and disposition Prior Visits: Notes and results from previous visits were reviewed. On 06/10/2017, pt was seen in the Emergency department for RUQ pain, nausea, and vomiting. Pt was admitted to the hospital for further evaluation. Progress Notes: 07/04/17 01:19 Reviewed sono, US Duplex Lower Extremities negative for DVT. 07/04/17 01:23 Case discussed with surgical scrub technician oxidation engineer, who is aware and agrees to evaluate pt. 07/04/17 02:10 Pt seen and evaluated by surgical scrub technician, Dr. Reaves, concurs pt can be d/c with f/u with Dr. Calhoun this week. States he will speak with Dr. Calhoun 07/04/17 02:16 On re-evaluation, patient feels better and is in no acute distress. I have discussed the results and plan with the patient, who expresses understanding. Patient in agreement with plan to be discharged home. Patient is stable for discharge. Patient was instructed to follow up with physician or return if symptoms worsen or new concerning symptoms arise. - Lab Interpretations Lab Results: 07/03/17 23:40 07/03/17 23:40 Lab Results 07/03/17 23:40: WBC 8.1, RBC 4.59, Hgb 11.9 L, Hct 38.8, MCV 84.5, MCH 25.9, MCHC 30.7 L, RDW 17.0 H, Plt Count 273, MPV 10.7 07/03/17 23:40: Sodium 141, Potassium 4.2, Chloride 104, Carbon Dioxide 26, Anion Gap 16, BUN 16, Creatinine 1.2, Est GFR ( Amer) 54, Est GFR (Non- Af Amer) 45, Random Glucose 98, Calcium 9.5, Total Bilirubin 0.5, AST 42 H D, ALT 35, Alkaline Phosphatase 88, Total Protein 7.8, Albumin 4.1, Globulin 3.7, Albumin/Globulin Ratio 1.1 I have reviewed the lab results: Yes - RAD Interpretation Radiology Orders: 07/03/17 22:56 DUPLEX LOWER EXTRM VEIN BILAT [US] Stat - Medication Orders Current Medication Orders: Sodium Chloride (Sodium Chloride 0.9%) 1,000 mls @ 100 mls/hr IV .Q10H [facility] Last Admin: 07/04/17 00:36 Dose: 100 mls/hr eMAR Start Stop Document 07/04/17 00:36 LISA (Rec: 07/04/17 00:36 [place] [facility] [id number] Intravenous Solution Start Date 07/04/17 Start Time 00:36 Discontinued Medications Morphine Sulfate (Morphine) 2 mg IVP STAT STA Stop: 07/03/17 22:57 Last Admin: 07/04/17 00:36 Dose: 2 mg MAR Pain Assessment Document 07/04/17 00:36 LISA (Rec: 07/04/17 00:36 [place] [facility] [id number] Pain Reassessment Is this a pain reassessment? Yes Sleep Is patient sleeping during reassessment? No Location Left, Right or Bilateral Left Pain Location Body Site Leg IVP Administration Document 07/04/17 00:36 LISA (Rec: 07/04/17 00:36 [facility] [id number][place] Charges for Administration # of IVP Administrations 1 Ondansetron HCl (Zofran Inj) 4 mg IVP ONCE ONE Stop: 07/03/17 22:57 Last Admin: 07/04/17 00:36 Dose: 4 mg IVP Administration Document 07/04/17 00:36 LISA (Rec: 07/04/17 00:36 [facility] [id number] Charges for Administration # of IVP Administrations 1 - Scribe Statement The provider has reviewed the documentation as recorded by the Jos eManuel Aguilar Provider Scribe Attestation: All medical record entries made by the Scribe were at my direction and personally dictated by me. I have reviewed the chart and agree that the record accurately reflects my personal performance of the history, physical exam, medical decision making, and the department course for this patient. I have also personally directed, reviewed, and agree with the discharge instructions and disposition. Disposition/Present on Arrival - Present on Arrival Any Indicators Present on Arrival: No History of DVT/PE: No History of Uncontrolled Diabetes: No Urinary Catheter: No History of Decub. Ulcer: No History Surgical Site Infection Following: None - Disposition Have Diagnosis and Disposition been Completed?: Yes Diagnosis: Muscle pain, Skin erythema Disposition: HOME/ ROUTINE Disposition Time: 02:16 Patient Plan: Discharge Patient Problems: Current Active Problems Problem Status Onset Muscle pain Acute Skin erythema Acute Condition: STABLE Additional Instructions: Continue recently started antibiotics/no strenuous physical activity/continue your prescribed meds/follow up with your doctor this week Referrals: Geraldo Toscano MD [Primary Care Provider] - Follow up with primary Forms: [employer] (Malagasy)
[2017-07-03] MEDS ORDERED: Morphine 2 mg/ml ISec IVP STA (22:56)
[2017-07-03] MEDS ORDERED: Sodium Chloride 0.9% 1,000 ML IV SCH (23:00)
[2017-07-03 23:58] LABS: ALB/GLOB RATIO 1.1 (1.1-1.8); BILIRUBIN,TOTAL 0.5 mg/dL (0.2-1.3); CALCIUM 9.5 mg/dL (8.4-10.5); POTASSIUM 4.2 mmol/L (3.6-5.0); TOTAL PROTEIN 7.8 g/dL (5.8-8.3)
[2017-07-04 00:22] LABS: HEMATOCRIT 38.8 % (36.0-48.0); MEAN CELL VOLUME 84.5 fl (80.0-105.0); MEAN CORPUSCULAR HEMOGLOBIN 25.9 pg (25.0-35.0); MEAN CORPUSCULAR HGB CONC 30.7 g/dl (31.0-37.0); MEAN PLATELET VOLUME 10.7 fl (7.0-11.0); WHITE BLOOD COUNT 8.1 10^3/ul (4.5-11.0)
[2017-07-04 02:48] VITALS: BP 143/76; PULSE 59; TEMP 98.3
--- NOTE | 2017-07-04 02:56 | CP.PCM.CON ---
History of Present Illness - History of Present Illness History of Present Illness: Surgery Consult Note. Dr. Calhoun 67yo F with PMHx of COPD, DM, HTN here for evaluation of left thigh pain. Patient is s/p Lap cholecystectomy and primary ventral hernia repair on . She saw Dr. Calhoun 2 days ago and was started on Antibiotics due possible midline incision infection. She states that she has had some lavelle-incisional pain and erythema, denies any drainage or erythema. States that Dr. Calhoun aspirated "red/clear fluid" from the area 2 days ago when she had her follow-up appointment. She states that her left thigh pain is the main reason that she is here for evaluation. She woke up yesterday morning with a pressure type pain to the upper left thigh, does not radiate. Denies any N/V/D. No Bowel changes. No F /C. No Headaches. No CP/SOB. No gait disturbance. PMD: Suc[place] PMHx: COPD, DM, HTN PSHx: Lap Arin 06/12, Open Ventral Hernia Repair 06/12, Appendectomy, R Knee Surgery Social Hx: Former Tobacco use. Denies ETOH. Denies illicit drugs Allergy: PCN, [place] Review of Systems - Review of Systems All systems: reviewed and no additional remarkable complaints except - Constitutional Constitutional: absent: Chills, Fever - Cardiovascular Cardiovascular: absent: Chest Pain, Dyspnea - Respiratory Respiratory: absent: Cough - Gastrointestinal Gastrointestinal: absent: Abdominal Pain, Diarrhea, Nausea, Vomiting Past Patient History - Infectious Disease Hx of Infectious Diseases: None - Tetanus Immunizations Tetanus Immunization: Unknown - Past Social History Smoking Status: Former Smoker - CARDIAC Hx Cardiac Disorders: No - PULMONARY Hx Respiratory Disorders: Yes Hx Chronic Obstructive Pulmonary Disease (COPD): Yes - NEUROLOGICAL Hx Neurological Disorder: No - HEENT Hx HEENT Problems: Yes (eyeglasses) - RENAL Hx Chronic Kidney Disease: No - ENDOCRINE/METABOLIC Hx Endocrine Disorders: Yes Hx Diabetes Mellitus Type 2: Yes - HEMATOLOGICAL/ONCOLOGICAL Hx Blood Disorders: Yes Other/Comment: 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"; acute allergic nephritis - INTEGUMENTARY Hx Dermatological Problems: No - MUSCULOSKELETAL/RHEUMATOLOGICAL Hx Musculoskeletal Disorders: Yes Hx Falls: Yes (11/2016 Mechanical Fall) - GASTROINTESTINAL Hx Gastrointestinal Disorders: Yes (POST LAP ARIN,HERNIORHAPPHY) - GENITOURINARY/GYNECOLOGICAL Hx Genitourinary Disorders: No Hx Reproductive Disorders: No - PSYCHIATRIC Hx Psychophysiologic Disorder: No Hx Substance Use: No - SURGICAL HISTORY Hx Cholecystectomy: Yes Hx Orthopedic Surgery: Yes (Right Knee) - ANESTHESIA Hx Anesthesia: No Hx Anesthesia Reactions: No Hx Malignant Hyperthermia: No Meds Allergies/Adverse Reactions: Allergies Allergy/AdvReac Type Severity Reaction Status Date / Time Penicillins Allergy ANAPHYLAXIS Verified 07/03/17 22:24 strawberry Allergy ITCHING Verified 07/03/17 22:24 - Medications Medications: Current Medications Sodium Chloride (Sodium Chloride 0.9%) 1,000 mls @ 100 mls/hr IV .Q10H [facility] Last Admin: 07/04/17 00:36 Dose: 100 mls/hr Physical Exam - Constitutional Appears: Well, Non-toxic, No Acute Distress - Head Exam Head Exam: ATRAUMATIC, NORMAL INSPECTION, NORMOCEPHALIC - Eye Exam Eye Exam: EOMI - ENT Exam ENT Exam: Mucous Membranes Moist, Normal Exam - Respiratory Exam Respiratory Exam: NORMAL BREATHING PATTERN. absent: Accessory Muscle Use, Respiratory Distress - Cardiovascular Exam Cardiovascular Exam: RRR, +S1, +S2. absent: JVD - GI/Abdominal Exam GI & Abdominal Exam: Soft. absent: Distended, Firm, Guarding, Rigid, Tenderness Additional comments: Right upper Quadrant and epigastric laparascopic port incisions intact, skin edges well approximated, no erythema, no induration, no drainage Midline infraumbilical ventral hernia repair incision with left sided mild erythema and induration. No active drainage. Mild tenderness to palpation. Skin edges well approximated and well healing. - Extremities Exam Extremities exam: Positive for: normal inspection. Negative for: calf tenderness, pedal edema Additional comments: Left upper thigh: No erythema, no induration. No tenderness to palpation. - Neurological Exam Neurological exam: Alert, Normal Gait, Oriented x3 - Psychiatric Exam Psychiatric exam: Normal Affect, Normal Mood - Skin Skin Exam: Dry, Intact Additional comments: some erythema and induration at infraumbilical midline healing surgical wound Results - Vital Signs Recent Vital Signs: Last Vital Signs Temp 98.6 F 07/03/17 22:17 Pulse 74 07/03/17 22:17 Resp 18 07/03/17 22:17 BP 148/77 07/03/17 22:17 Pulse Ox 96 07/03/17 22:17 - Labs Result Diagrams: 07/03/17 23:40 07/03/17 23:40 Labs: Laboratory Results - last 24 hr 07/03/17 07/03/17 23:40 23:40 WBC 8.1 RBC 4.59 Hgb 11.9 L Hct 38.8 MCV 84.5 MCH 25.9 MCHC 30.7 L RDW 17.0 H Plt Count 273 MPV 10.7 Sodium 141 Potassium 4.2 Chloride 104 Carbon Dioxide 26 Anion Gap 16 BUN 16 Creatinine 1.2 Est GFR ( Amer) 54 Est GFR (Non-Af Amer) 45 Random Glucose 98 Calcium 9.5 Total Bilirubin 0.5 AST 42 H D ALT 35 Alkaline Phosphatase 88 Total Protein 7.8 Albumin 4.1 Globulin 3.7 Albumin/Globulin Ratio 1.1 Assessment & Plan - Assessment and Plan (Free Text) Assessment: 67yo F with recent Lap Arin and open primary ventral hernia repair on 06/12 here for evaluation of left thigh pain. - US DVT study negative - No leukocytosis, afebrile - On abx currently: Cipro (5 days remain) - left thigh pain not likely secondary to recent surgery - Continue Abx - Follow up with Dr. Calhoun in one week. Call for appointment Further recs as per Dr. Lj Reaves PGY1 surgery pager: [phone]
--- NOTE | 2017-07-04 09:09 | US ---
HISTORY: Leg pain and swelling. Evaluate for DVT PHYSICIAN(S): Bayron Rodriges MD. TECHNIQUE: Duplex sonography and color-flow Doppler with graded compression were used to evaluate the deep venous systems of both lower extremities. FINDINGS: The visualized deep venous systems of both lower extremities are sonographically normal and compressible. Normal wave forms and augmentation are seen. There is no sonographic evidence for deep venous thrombosis in the visualized segments of both lower extremities. IMPRESSION: No sonographic evidence for deep venous thrombosis in the visualized segments of both lower extremities.
== END 2017-07-04 02:25 | disposition home or self-care (01) ==
LOC: ED 21:07
DX: M79.1 Myalgia (principal); L53.9 Erythematous condition, unspecified; I10 Essential (primary) hypertension; E11.9 Type 2 diabetes mellitus without complications; Z90.49 Acquired absence of other specified parts of digestive tract; Z87.891 Personal history of nicotine dependence
CPT/HCPCS: 80053; 85027; 87040; 93970; 96374; 96375; 99284; J2270; J2405; J7040

== ENCOUNTER 2017-07-23 12:34 | Inpatient (IN) | payer MEDICARE, BC ==
[2017-07-23] MEDS ORDERED: DiphenhydrAMINE 50 mg/ml Inj IVP STA (13:01)
--- NOTE | 2017-07-23 13:03 | ED PDOC ---
Arrival/HPI - General Chief Complaint: Chest Pain Time Seen by Provider: 07/23/17 12:45 Historian: Patient - History of Present Illness Narrative History of Present Illness (Text): 07/23/17 12:57 A 67 year old female, whose past medical history includes diabetes, COPD, hypertension, hyperlipidemia, questionable lupus history, presents to the emergency department complaining of a rash over her entire body and chest pain. The patient states that she was prescribed Bactrim by her PMD for a UTI, and since then she began to break out in a red, itchy rash all over her body. She contacted her PMD 2 days ago regarding the rash, and she was instructed to stop taking the Bactrim and take Zyrtec. She states that it did not improve her symptoms so she began to take Benadryl with no improvement. The patient also notes that she has been experiencing intermittent chest pain that she has experienced in the past. The patient denies fevers, chills, headache, dizziness , shortness of breath, dyspnea on exertion, cough, abdominal pain, nausea, vomiting, diarrhea, back pain, neck pain, urinary/bowel changes, or any other complaint. PMD: Dr. Toscano Surgeon: Dr. Calhoun Time/Duration: Other (5 Days) Symptom Onset: Sudden Symptom Course: Unchanged Activities at Onset: Rest, Light Context: Home Past Medical History - Provider Review Nursing Documentation Reviewed: Yes - Infectious Disease Hx of Infectious Diseases: None - Tetanus Immunization Tetanus Immunization: Unknown - Reproductive Menopause: Yes - Cardiac Hx Cardiac Disorders: No - Pulmonary Hx Respiratory Disorders: Yes Hx Chronic Obstructive Pulmonary Disease (COPD): Yes - Neurological Hx Neurological Disorder: No - HEENT Hx HEENT Disorder: Yes (eyeglasses) - Renal Hx Renal Disorder: No - Endocrine/Metabolic Hx Endocrine Disorders: Yes Hx Diabetes Mellitus Type 2: Yes - Hematological/Oncological Hx Blood Disorders: Yes Other/Comment: 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"; acute allergic nephritis - Integumentary Hx Dermatological Disorder: No - Musculoskeletal/Rheumatological Hx Musculoskeletal Disorders: Yes Hx Falls: Yes (11/2016 Mechanical Fall) - Gastrointestinal Hx Gastrointestinal Disorders: Yes (POST LAP ARIN,HERNIORHAPPHY) - Genitourinary/Gynecological Hx Genitourinary Disorders: No Hx Reproductive Disorders: No Hx Urinary Tract Infection: Yes - Psychiatric Hx Psychophysiologic Disorder: No Hx Substance Use: No - Surgical History Hx Cholecystectomy: Yes Hx Orthopedic Surgery: Yes (Right Knee) Other/Comment: jun 12, 2017- GB removed, umbilical hernia repair - Anesthesia Hx Anesthesia: Yes Hx Anesthesia Reactions: No Hx Malignant Hyperthermia: No - Suicidal Assessment Feels Threatened In Home Enviroment: No Family/Social History - Physician Review Nursing Documentation Reviewed: Yes Family/Social History: No Known Family HX Smoking Status: Former Smoker Hx Alcohol Use: No Hx Substance Use: No Hx Substance Use Treatment: No Allergies/Home Meds Allergies/Adverse Reactions: Allergies Penicillins Allergy (Verified 07/03/17 22:24) ANAPHYLAXIS strawberry Allergy (Verified 07/03/17 22:24) ITCHING sulfamethoxazole [From Bactrim] Adverse Reaction (Verified 07/23/17 12:52) RASH trimethoprim [From Bactrim] Adverse Reaction (Verified 07/23/17 12:52) RASH Home Medications: Home Meds Medication Instructions Recorded Confirmed Aspirin [Adult Low Dose Aspirin EC] 81 mg PO DAILY 06/10/17 07/23/17 Budesonide/Formoterol Fumarate 1 aer IH DAILY 06/10/17 07/23/17 [Symbicort 160-4.5 Mcg Inhaler] DULoxetine [Cymbalta] 25 mg PO DAILY 06/10/17 07/23/17 GlipiZIDE [Glucotrol] 5 mg PO DAILY 06/10/17 07/23/17 Methotrexate 2.5 mg PO SAT 06/10/17 07/23/17 Ondansetron ODT [Zofran ODT] 4 mg PO PRN PRN 06/10/17 07/23/17 Primidone [Mysoline] 25 mg PO HS 06/10/17 07/23/17 metFORMIN [glucOPHAGE] 500 mg PO BID 06/10/17 07/23/17 oxyCODONE [oxyCODONE Immediate 30 mg PO QID 06/10/17 07/23/17 Release Tab] Review of Systems - Physician Review All systems were reviewed & negative as marked: Yes - Review of Systems Constitutional: absent: Fevers Respiratory: absent: Cough Physical Exam - Physical Exam Narrative Physical Exam (Text): 07/23/17 13:09 Constitutional: No acute distress. Head: Normocephalic. Atraumatic. Eyes: PERRL. ENT: Moist mucous membranes. Neck: Supple. Cardiovascular: Regular rate. Chest: No tenderness. Respiratory: Clear to auscultation bilaterally. GI: Soft. Nontender. Nondistended. Back: No CVA tenderness. Musculoskeletal: No tenderness or swelling of extremities. Skin: Puritic, bright, blanching, non-tender rash overlying the upper chest, back lower neck, face and arm. No blistering or bullae. Mild erythema underlying the lower abdomen, blanching, non- tender. Bilateral lower leg petechial rash. No peeling. Neurologic: Alert, no focal deficit. Vital Signs Reviewed: Yes Vital Signs Temp Pulse Resp BP Pulse Ox 07/23/17 14:52 98 F 72 20 126/72 99 07/23/17 12:47 98.5 F 74 147/74 97 Temperature: Afebrile Blood Pressure: Normal Pulse: Regular Respiratory Rate: Normal Appearance: Positive for: Non-Toxic Pain Distress: None Mental Status: Positive for: Alert and Oriented X 3 Medical Decision Making ED Course and Treatment: 07/23/17 13:16 Impression: A 67 year old female presents to the emergency department complaining of a rash over her body s/p starting a new medication. Plan: -- EKG -- Chest X-ray -- Labs -- Urinalysis -- Reassess and disposition Prior Visits: Notes and results from previous visits were reviewed. Patient was last seen in the emergency department on 07/03/17. The patient was seen in the emergency department for a complaint of redness and discomfort at the abdominal incision site. The patient was discharged home. Progress Notes: EKG: Ordered, reviewed, and independently interpreted the EKG. Rate : 90 BPM Rhythm : NSR Interpretation : No ST-T wave changes. CXR IMPRESSION: No active disease. Patient unable to undergo CT due to acute on chronic renal insufficiency. Dr. Toscano will accept patient to his service. - Lab Interpretations Lab Results: 07/23/17 13:50 07/23/17 13:50 Lab Results 07/23/17 13:50: Sodium 130 L, Potassium 4.0, Chloride 98, Carbon Dioxide 20 L, Anion Gap 16, BUN 28 H, Creatinine 1.9 H, Est GFR ( Amer) 32, Est GFR ( Non-Af Amer) 26, Random Glucose 106, Calcium 9.3, Total Bilirubin 0.9, AST 35, ALT 45, Alkaline Phosphatase 179 H D, Total Creatine Kinase 102, Troponin I < 0.01 D, Total Protein 6.2, Albumin 3.1, Globulin 3.1, Albumin/Globulin Ratio 1.0 L, Lipase 25 07/23/17 13:50: PT 16.6 H, INR 1.45 H, APTT 30.1 07/23/17 13:50: WBC 10.1 D, RBC 4.19, Hgb 10.6 L, Hct 33.8 L, MCV 80.7 D, MCH 25.3, MCHC 31.4, RDW 17.3 H, Plt Count 276, MPV 9.8, Gran % 83.9 H, Lymph % ( Auto) 9.0 L, Jackson % (Auto) 1.8, Eos % (Auto) 4.8, Baso % (Auto) 0.5, Gran # 8.48 H, Lymph # 0.9 L, Jackson # 0.2, Eos # 0.5, Baso # 0.05 07/23/17 13:30: Urine Color Yellow, Urine Appearance Turbid, Urine pH 6.0, Ur Specific Sterling >= 1.030, Urine Protein 100 H, Urine Glucose (UA) Negative, Urine Ketones Trace H, Urine Blood Negative, Urine Nitrate Positive H, Urine Bilirubin Moderate H, Urine Urobilinogen 1.0 H, Ur Leukocyte Esterase Moderate H , Urine RBC 0 - 2, Urine WBC 15 - 20, Ur Epithelial Cells 3 - 4, Urine Bacteria Mod, Coarse Granular Casts Trace H I have reviewed the lab results: Yes - RAD Interpretation Radiology Orders: 07/23/17 12:57 CHEST PORTABLE [RAD] Stat - EKG Interpretation Interpreted by ED Physician: Yes Type: 12 lead EKG - Medication Orders Current Medication Orders: Discontinued Medications Diphenhydramine HCl (Benadryl) 50 mg IVP STAT STA Stop: 07/23/17 13:02 Last Admin: 07/23/17 13:47 Dose: 50 mg IVP Administration Document 07/23/17 13:47 GMI (Rec: 07/23/17 13:48 GMI [id number]) Charges for Administration # of IVP Administrations 1 Hydroxyzine HCl (Atarax) 25 mg PO STAT STA Stop: 07/23/17 15:34 Last Admin: 07/23/17 16:14 Dose: 25 mg Sodium Chloride (Sodium Chloride 0.9%) 1,000 mls @ 999 mls/hr IV .Q1H1M STA Stop: 07/23/17 16:34 Last Admin: 07/23/17 15:59 Dose: 999 mls/hr eMAR Start Stop Document 07/23/17 15:59 GMI (Rec: 07/23/17 16:00 GMI [id number]) Intravenous Solution Start Date 07/23/17 Start Time 15:59 - Scribe Statement The provider has reviewed the documentation as recorded by the Jose Manuel Gutierrez Provider Scribe Attestation: All medical record entries made by the Scribe were at my direction and personally dictated by me. I have reviewed the chart and agree that the record accurately reflects my personal performance of the history, physical exam, medical decision making, and the department course for this patient. I have also personally directed, reviewed, and agree with the discharge instructions and disposition. Disposition/Present on Arrival - Present on Arrival Any Indicators Present on Arrival: No History of DVT/PE: No History of Uncontrolled Diabetes: No Urinary Catheter: No History of Decub. Ulcer: No History Surgical Site Infection Following: None - Disposition Have Diagnosis and Disposition been Completed?: Yes Diagnosis: Abdominal pain, Rash, Acute renal insufficiency, Dehydration Disposition: HOSPITALIZED Disposition Time: 15:35 Patient Plan: Admission Condition: FAIR
[2017-07-23 13:35] LABS: URINE BILIRUBIN MODERATE (NEGATIVE); URINE BLOOD NEGATIVE (NEGATIVE); URINE GLUCOSE (UA) NEGATIVE (NEGATIVE); URINE LEUKOCYTE ESTERASE MODERATE Leu/uL (NEGATIVE); URINE NITRATE POSITIVE (NEGATIVE); URINE PROTEIN 100 mg/dL (<30 mg/dL)
[2017-07-23 13:37] LABS: URINE APPEARANCE TURBID (CLEAR); URINE COLOR YELLOW (YELLOW)
[2017-07-23 13:50] LABS: URINE BACTERIA MOD (NEG); URINE COARSE GRANULAR CAST TRACE /hpf (0-2); URINE RBC 0 - 2 /hpf (0-2); URINE WBC 15 - 20 /hpf (0-6)
[2017-07-23 14:22] LABS: BASO # 0.05 K/mm3 (0.0-2.0); BASO % 0.5 % (0.0-3.0); EOS # 0.5 (0.0-0.7); EOS % 4.8 % (1.5-5.0); GRAN # 8.48 (1.4-6.5); GRAN % 83.9 % (50.0-68.0); HEMOGLOBIN 10.6 g/dL (12.0-16.0); LYMPH # 0.9 (1.2-3.4); MEAN CELL VOLUME 80.7 fl (80.0-105.0); MEAN CORPUSCULAR HEMOGLOBIN 25.3 pg (25.0-35.0); MEAN CORPUSCULAR HGB CONC 31.4 g/dl (31.0-37.0); MEAN PLATELET VOLUME 9.8 fl (7.0-11.0); MONO # 0.2 (0.1-0.6); MONO % 1.8 % (1.0-6.0); RBC 4.19 10^6/uL (3.5-6.1); RED CELL DISTRIBUTION WIDTH 17.3 % (11.5-14.5); WHITE BLOOD COUNT 10.1 10^3/ul (4.5-11.0)
[2017-07-23 14:31] LABS: INR 1.45 (0.93-1.08); PARTIAL THROMBOPLASTIN TIME 30.1 Seconds (25.1-36.5); PROTHROMBIN TIME 16.6 SECONDS (9.4-12.5)
[2017-07-23 14:36] LABS: TROPONIN I < 0.01 ng/mL
--- NOTE | 2017-07-23 14:55 | RAD ---
PROCEDURE: CHEST RADIOGRAPH, 1 VIEW HISTORY: chest pain, rash COMPARISON: None available. FINDINGS: LUNGS: Clear. PLEURA: No pneumothorax or pleural fluid seen. CARDIOVASCULAR: Normal. OSSEOUS STRUCTURES: No significant abnormalities. VISUALIZED UPPER ABDOMEN: Normal. OTHER FINDINGS: None. IMPRESSION: No active disease.
[2017-07-23 14:56] LABS: ALBUMIN 3.1 g/dL (3.0-4.8); ALT/SGPT 45 U/L (7-56); AST/SGOT 35 U/L (14-36); BLOOD UREA NITROGEN 28 mg/dL (7-21); CALCIUM 9.3 mg/dL (8.4-10.5); GFR AFRICAN-AMERICAN 32; GFR NON-AFRICAN AMERICAN 26; LIPASE 25 U/L (23-300)
[2017-07-23] MEDS ORDERED: Sodium Chloride 0.9% 1,000 ML IV STA (15:34)
[2017-07-23 20:36] VITALS: BMI 33.6
[2017-07-24] MEDS: oxyCODONE 30 mg Immediate Release Tab PO PRN ×3 (00:04→20:04)
[2017-07-24] MEDS: Dextrose 5%/0.9% NS 1,000 ML IV SCH ×3 (00:08→19:55)
[2017-07-24] MEDS: Insulin Reg-LOW-Coverage SC SCH ×3 (10:32→18:50)
--- NOTE | 2017-07-24 16:56 | CARD ---
APPROVED REPORT EKG Measurement Heart [id number] <Conclusion> Normal sinus rhythm Normal ECG
[2017-07-25] MEDS: Insulin Reg-LOW-Coverage SC SCH ×5 (04:50→22:00)
[2017-07-25] MEDS: Dextrose 5%/0.9% NS 1,000 ML IV SCH (06:19)
[2017-07-25 07:40] LABS: MEAN CELL VOLUME 81.3 fl (80.0-105.0); MEAN CORPUSCULAR HEMOGLOBIN 24.9 pg (25.0-35.0); MEAN CORPUSCULAR HGB CONC 30.6 g/dl (31.0-37.0); MEAN PLATELET VOLUME 9.3 fl (7.0-11.0); RBC 4.02 10^6/uL (3.5-6.1); RED CELL DISTRIBUTION WIDTH 17.8 % (11.5-14.5); WHITE BLOOD COUNT 5.5 10^3/ul (4.5-11.0)
[2017-07-25 08:05] LABS: BLOOD UREA NITROGEN 17 mg/dL (7-21); GFR AFRICAN-AMERICAN > 60; GFR NON-AFRICAN AMERICAN 55
[2017-07-25] MEDS: oxyCODONE 30 mg Immediate Release Tab PO PRN ×3 (08:34→23:40)
[2017-07-25] MEDS ORDERED: Pantoprazole 40 mg EC Tab PO STA (21:12)
--- NOTE | 2017-07-25 21:20 | CP.PCM.PN ---
Subjective - Date & Time of Evaluation Date of Evaluation: 07/25/17 Time of Evaluation: 20:00 - Subjective Subjective: Pt seen stat at the request of her RN who stated pt needs to be seen for her c/ o chest pain radiating to both sides below the breasts and going towards the back.The pain has subsided by itself.She states it started about 20 minutes ago, is a sharp pain,on a scale of 1 to 10 it was a 5 and it was not associated with any other symptoms like cough,SOB,nausea,vomiting,palpitations,abominal pain or calf pain. Patient was admitted for c/o chest pain and a rash secondary to allergic reaction to Bactrim. VS are stable ,O2 sat on RA is 100% PMH: T 98 P 73 BP 153/79 RR 16 O2 sat on room air 100% Objective - Vital Signs/Intake and Output Vital Signs (last 24 hours): Temp Pulse Resp BP Pulse Ox 98 F 73 16 153/79 H 100 07/25/17 19:42 07/25/17 19:42 07/25/17 19:42 07/25/17 19:42 07/25/17 19:42 Intake and Output: 07/25/17 07/26/17 18:59 06:59 Intake Total 640 Balance 640 - Medications Medications: Current Medications Duloxetine HCl (Cymbalta) 30 mg PO HS [facility] Last Admin: 07/24/17 21:45 Dose: 30 mg Glipizide (Glucotrol) 5 mg PO ACB [facility] Last Admin: 07/25/17 08:25 Dose: 5 mg Glipizide (Glucotrol) 10 mg PO ACD [facility] Last Admin: 07/25/17 16:38 Dose: 10 mg Hydroxyzine HCl (Atarax) 25 mg PO Q8H PRN PRN Reason: Allergy symptoms Last Admin: 07/25/17 16:38 Dose: 25 mg Insulin Human Regular (Humulin R Low) 0 units SC ACHS [facility] PRN Reason: Protocol Last Admin: 07/25/17 16:40 Dose: 2 units Metformin HCl (Glucophage) 500 mg PO BID [facility] Last Admin: 07/25/17 17:36 Dose: 500 mg Oxycodone HCl (Oxycodone Immediate Release Tab) 30 mg PO Q8H PRN PRN Reason: Severe back pain Last Admin: 07/25/17 16:38 Dose: 30 mg Prednisone (Prednisone Tab) 20 mg PO BID [facility] Last Admin: 07/25/17 17:36 Dose: 20 mg Primidone (Mysoline) 25 mg PO HS [facility] Last Admin: 07/24/17 21:45 Dose: 25 mg - Labs Labs: 07/25/17 07:00 07/25/17 07:00 PT 16.6 SECONDS (9.4-12.5) H 07/23/17 13:50 INR 1.45 (0.93-1.08) H 07/23/17 13:50 APTT 30.1 Seconds (25.1-36.5) 07/23/17 13:50 - Constitutional Appears: No Acute Distress - Head Exam Head Exam: ATRAUMATIC, NORMAL INSPECTION, NORMOCEPHALIC - Eye Exam Eye Exam: PERRL - ENT Exam ENT Exam: Mucous Membranes Moist - Neck Exam Neck Exam: Normal Inspection - Respiratory Exam Respiratory Exam: Clear to Ausculation Bilateral, NORMAL BREATHING PATTERN. absent: Chest Wall Tenderness - Cardiovascular Exam Cardiovascular Exam: REGULAR RHYTHM, +S1, +S2 - GI/Abdominal Exam GI & Abdominal Exam: Soft, Normal Bowel Sounds. absent: Tenderness Additional comments: Recent surgical scars noted - Extremities Exam Extremities Exam: Pedal Edema. absent: Calf Tenderness - Neurological Exam Neurological Exam: Alert, Awake, Oriented x3 - Psychiatric Exam Psychiatric exam: Normal Affect - Skin Skin Exam: Dry, Rash (faded rash noted on the back,both lower legs are erythematous), Warm Assessment and Plan - Assessment and Plan (Free Text) Assessment: Chest Pain Gastritis Plan: Ekg requested stat,it shows no acute or ischemic changes or arrhythmia. Will order Protonix 40 mg po stat,then once daily. Also ordered cardiac enzymes stat then in AM. Also ordered CMP and lipase. Dr Mary Toscano was called,as per request also ordered Aspirin 81mg po daily.
[2017-07-25 22:47] LABS: ALB/GLOB RATIO 0.8 (1.1-1.8); ALBUMIN 3.2 g/dL (3.0-4.8); ALT/SGPT 57 U/L (7-56); AST/SGOT 46 U/L (14-36); BLOOD UREA NITROGEN 15 mg/dL (7-21); CALCIUM 9.4 mg/dL (8.4-10.5); GFR AFRICAN-AMERICAN > 60; GFR NON-AFRICAN AMERICAN > 60
[2017-07-25 22:55] LABS: TROPONIN I < 0.01 ng/mL
[2017-07-26] MEDS: oxyCODONE 30 mg Immediate Release Tab PO PRN ×3 (07:27→22:39)
[2017-07-26 07:43] LABS: TROPONIN I < 0.01 ng/mL
--- NOTE | 2017-07-26 08:07 | PN ---
DATE: 07/25/2017 SUBJECTIVE: The patient was seen this Monday at noon time in room 574, bed 2. She is awake, alert and clear, sitting at the edge of the bed, covered with a confluent, contiguous red rash. It looks like Pope-Santiago syndrome, but there is no mouth or hard palate lesions. PHYSICAL EXAMINATION: She is responding to steroids. The itching has improved. Later in the day, I received a call that she reported some upper epigastric pain. She was seen by a house physician, and proton pump inhibitor was added. We will continue antibiotics and steroids, taper or discontinue steroids soon, switch to oral antihistamines and hopefully discharge soon. Bob Toscano MD
[2017-07-26] MEDS: Insulin Reg-LOW-Coverage SC SCH ×4 (08:36→23:20)
[2017-07-26] MEDS: Pantoprazole 40 mg EC Tab PO SCH (09:27)
--- NOTE | 2017-07-26 12:25 | CARD ---
APPROVED REPORT EKG Measurement Heart [id number] <Conclusion> Normal sinus rhythm Normal ECG
[2017-07-26] MEDS: Gentamicin 70 MG in Sodium Chloride 0.9% 100 ML IVPB SCH (21:15)
[2017-07-27] MEDS: Gentamicin 70 MG in Sodium Chloride 0.9% 100 ML IVPB SCH (05:30)
[2017-07-27] MEDS: oxyCODONE 30 mg Immediate Release Tab PO PRN ×2 (05:42→14:01)
[2017-07-27 11:15] VITALS: BP 164/84; PULSE 71; RESP 20; TEMP 98.5; O2SAT 97
[2017-07-27 11:21] LABS: PH,URINE 7.5 (4.7-8.0); URINE BILIRUBIN NEGATIVE (NEGATIVE); URINE BLOOD NEGATIVE (NEGATIVE); URINE GLUCOSE (UA) NEGATIVE (NEGATIVE); URINE LEUKOCYTE ESTERASE NEGATIVE Leu/uL (NEGATIVE); URINE NITRATE NEGATIVE (NEGATIVE); URINE PROTEIN NEGATIVE mg/dL (<30 mg/dL); URINE UROBILINOGEN 0.2 E.U./dL (<1 E.U./dL)
[2017-07-27 11:22] LABS: URINE APPEARANCE CLEAR (CLEAR); URINE COLOR YELLOW (YELLOW)
[2017-07-27] MEDS: Insulin Reg-LOW-Coverage SC SCH (11:46)
[2017-07-27] MEDS: Pantoprazole 40 mg EC Tab PO SCH (11:46)
--- NOTE | 2017-07-28 07:04 | DS ---
HISTORY OF PRESENT ILLNESS: The patient was seen this morning in room number 574, bed 2. She is out of bed, awake, alert, comfortable, walking across the room, very much wanting to go home. PHYSICAL EXAMINATION: HEAD AND NECK: Unremarkable. CHEST: Clear. HEART: Regular, non-tachycardic. ABDOMEN: Soft, nontender. EXTREMITIES: Showed no edema. SKIN: Has residual erythema from allergic reaction. ABDOMEN: She has no CVA tenderness. Denies urinary tract infection. LABORATORY DATA: Review of the labs shows Pseudomonas urinary tract infection on admission, treated with vanco. I will repeat the urinalysis today. If it was good, may send the patient home. If it is abnormal, may consider using outpatient oral agents such as Monurol with the patient to follow up in 1 week. Repeat urinalysis was clean. No bacteria. No leukocyte esterase. Therefore, the patient was discharged to home. FINAL DISCHARGE DIAGNOSES: 1. Allergic reaction to sulfa drug. 2. Urinary tract infection with Pseudomonas. Bob Toscano MD
== END 2017-07-27 15:50 | disposition home or self-care (01) | DRG 607 ==
LOC: ED 12:34 → ERH 17:05 → 5RSO 19:05
PROVIDERS: ADMIT Internal Medicine; ATTEND Internal Medicine
DX: R21 Rash and other nonspecific skin eruption (principal); T37.0X5A Adverse effect of sulfonamides, initial encounter; J44.9 Chronic obstructive pulmonary disease, unspecified; B96.5 Pseudomonas (aeruginosa) (mallei) (pseudomallei) as the cause of diseases classified elsewhere; E78.5 Hyperlipidemia, unspecified; E11.9 Type 2 diabetes mellitus without complications; E86.0 Dehydration; N39.0 Urinary tract infection, site not specified; R07.9 Chest pain, unspecified; I10 Essential (primary) hypertension; K29.70 Gastritis, unspecified, without bleeding; Z79.51 Long term (current) use of inhaled steroids; Z79.82 Long term (current) use of aspirin

== ENCOUNTER 2017-11-03 11:05 | Emergency (ER) | payer MEDICARE, BC ==
[2017-11-03 11:06] VITALS: BMI 33.6
[2017-11-03] MEDS ORDERED: Oxycodone/Acetaminophen 5/325 mg Tab PO STA (12:02)
--- NOTE | 2017-11-03 12:10 | ED PDOC ---
Arrival/HPI - General Chief Complaint: Pain, Chronic Time Seen by Provider: 11/03/17 12:02 Historian: Patient - History of Present Illness Narrative History of Present Illness (Text): 11/03/17 12:15 67 y/o female, pmh including copd/DM, allergic to penicillin/sulfa medication, c /o rt. sided neck pain and radiating to the rt. upper extremity x 2 days with no fall or trauma. Aching pain, on and off, no numbness or tingling, no slurred speech or weakness, no rash, no other medical or psychological complaints. Past Medical History - Provider Review Nursing Documentation Reviewed: Yes - Infectious Disease Hx of Infectious Diseases: None - Tetanus Immunization Tetanus Immunization: Unknown - Cardiac Hx Cardiac Disorders: No - Pulmonary Hx Respiratory Disorders: Yes Hx Chronic Obstructive Pulmonary Disease (COPD): Yes - Neurological Hx Neurological Disorder: No - HEENT Hx HEENT Disorder: Yes (eyeglasses) - Renal Hx Renal Disorder: Yes Other/Comment: RENAL INSUFFICIENCY - Endocrine/Metabolic Hx Endocrine Disorders: Yes Hx Diabetes Mellitus Type 2: Yes - Hematological/Oncological Hx Blood Disorders: Yes Other/Comment: 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" - Integumentary Hx Dermatological Disorder: No - Musculoskeletal/Rheumatological Hx Musculoskeletal Disorders: Yes Hx Falls: Yes Hx Fractures: Yes - Gastrointestinal Hx Gastrointestinal Disorders: Yes (POST LAP ARIN,HERNIORHAPPHY) - Genitourinary/Gynecological Hx Genitourinary Disorders: Yes Hx Urinary Tract Infection: Yes - Psychiatric Hx Psychophysiologic Disorder: No Hx Substance Use: No - Surgical History Hx Cholecystectomy: Yes Hx Orthopedic Surgery: Yes Other/Comment: HERNIA REPAIR - Anesthesia Hx Anesthesia: Yes Hx Anesthesia Reactions: No Hx Malignant Hyperthermia: No - Suicidal Assessment Feels Threatened In Home Enviroment: No Family/Social History - Physician Review Nursing Documentation Reviewed: Yes Family/Social History: Unknown Family HX Smoking Status: Former Smoker Hx Alcohol Use: No Hx Substance Use: No Hx Substance Use Treatment: No Allergies/Home Meds Allergies/Adverse Reactions: Allergies Penicillins Allergy (Verified 11/03/17 11:21) ANAPHYLAXIS strawberry Allergy (Verified 11/03/17 11:21) ITCHING sulfamethoxazole [From Bactrim] Adverse Reaction (Verified 11/03/17 11:21) RASH trimethoprim [From Bactrim] Adverse Reaction (Verified 11/03/17 11:21) RASH Home Medications: Home Meds Medication Instructions Recorded Confirmed Aspirin [Adult Low Dose Aspirin EC] 81 mg PO DAILY 06/10/17 11/03/17 Budesonide/Formoterol Fumarate 1 aer IH DAILY 06/10/17 11/03/17 [Symbicort 160-4.5 Mcg Inhaler] GlipiZIDE [Glucotrol] 5 mg PO DAILY 06/10/17 11/03/17 Methotrexate 2.5 mg PO SAT 06/10/17 11/03/17 Primidone [Mysoline] 25 mg PO HS 06/10/17 11/03/17 metFORMIN [glucOPHAGE] 500 mg PO BID 06/10/17 11/03/17 oxyCODONE [oxyCODONE Immediate 30 mg PO QID 06/10/17 11/03/17 Release Tab] Fluticasone/Vilanterol [Breo 1 puff NEB DAILY 11/03/17 11/03/17 Ellipta 200-25 Mcg INH] Review of Systems - Review of Systems Constitutional: absent: Fatigue, Fevers Eyes: absent: Vision Changes ENT: absent: Hearing Changes Respiratory: absent: SOB, Cough Cardiovascular: absent: Chest Pain Gastrointestinal: absent: Abdominal Pain, Nausea, Vomiting Musculoskeletal: Arthralgias, Neck Pain. absent: Back Pain, Myalgias Skin: absent: Rash, Pruritis Neurological: absent: Headache, Dizziness Psychiatric: absent: Anxiety, Depression Physical Exam Vital Signs Reviewed: Yes Vital Signs Temp Pulse Resp BP Pulse Ox 11/03/17 14:21 76 18 157/86 H 98 11/03/17 12:51 98.7 F 79 18 142/79 98 11/03/17 11:23 99.1 F 89 16 144/86 94 L Temperature: Afebrile Blood Pressure: Normal Pulse: Regular Respiratory Rate: Normal Appearance: Positive for: Well-Appearing, Non-Toxic, Comfortable Pain Distress: Moderate Mental Status: Positive for: Alert and Oriented X 3 - Systems Exam Head: Present: Atraumatic, Normocephalic Pupils: Present: PERRL Extroacular Muscles: Present: EOMI Conjunctiva: Present: Normal Mouth: Present: Moist Mucous Membranes Neck: Present: Normal Range of Motion, Paraspinal Tenderness (+rt. sided paraspinal tenderness), Trachea Midline. No: Meningeal Signs, MIDLINE TENDERNESS, Lymphadenopathy Respiratory/Chest: Present: Clear to Auscultation, Good Air Exchange. No: Respiratory Distress, Accessory Muscle Use Cardiovascular: Present: Regular Rate and Rhythm, Normal S1, S2. No: Murmurs Abdomen: No: Tenderness, Distention, Peritoneal Signs, Rebound, Guarding Back: Present: Normal Inspection. No: Midline Tenderness, Paraspinal Tenderness Upper Extremity: Present: Normal Inspection. No: Cyanosis, Edema Lower Extremity: Present: Normal Inspection. No: Edema Neurological: Present: GCS=15, Speech Normal, Motor Func Grossly Intact, Gait Normal, Memory Normal Skin: Present: Warm, Dry, Normal Color. No: Rashes Psychiatric: Present: Alert, Oriented x 3, Normal Insight, Normal Concentration Medical Decision Making ED Course and Treatment: 11/03/17 12:18 -CT cervical -RUE Venuous Doppler -percocet -observe and reassess 11/03/17 14:12 -RUE Venuous Doppler: as per preliminary report, no acute DVT -CT Cervical: Multilevel disc degenerative changes. Proliferative, hypertrophic changes encroaching on the exiting neural foramen on the right at C3-4. -Pt. feels much better, pain well controlled, decadron 8mg IM ordeed. Pt. has no focal neurological deficits. -Discharge home with flexeril, tylenol, lidoderm, bed rest, follow up with your own pcp within 2 days for further specialist referral as needed, return to the ER for any new or worsening signs or symptoms. - RAD Interpretation Radiology Orders: 11/03/17 12:02 CERVICAL SPINE W/O CONTRAST [CT] Stat 11/03/17 12:03 DUPLEX UPPER EXTRM VEIN RIGHT [US] Stat CT Cervical: VERTEBRAE: Reversal of the anatomic lordosis with kyphosis. Degree: Mild DISCS/SPINAL CANAL/NEURAL FORAMINA: Multilevel disc degenerative changes. Proliferative, hypertrophic changes encroaching on the exiting neural foramen on the right at C3-4. Foraminal narrowing C5-6 on the left from proliferative changes. PARASPINAL SOFT TISSUES: Unremarkable. OTHER FINDINGS: None. IMPRESSION: No acute findings related to/accounting for the clinical presentation. Severe degenerative changes mid and lower cervical spine. Mild kyphosis. RUE Venuous Doppler: as per preliminary report, no acute DVT 1. No sonographic evidence for deep venous thrombosis in the visualized segments of the right upper extremity. 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 No Sleep Is patient sleeping during reassessment? 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 Disposition/Present on Arrival - Present on Arrival Any Indicators Present on Arrival: No History of DVT/PE: No History of Uncontrolled Diabetes: No Urinary Catheter: No History of Decub. Ulcer: No History Surgical Site Infection Following: None - Disposition Have Diagnosis and Disposition been Completed?: Yes Diagnosis: Cervical radiculopathy Disposition: HOME/ ROUTINE Disposition Time: 12:19 Patient Plan: Discharge Patient Problems: Current Active Problems Problem Status Onset Cervical radiculopathy Acute Condition: IMPROVED Discharge Instructions (ExitCare): Radiculopathy Additional Instructions: -Discharge home with flexeril, tylenol, lidoderm, bed rest, follow up with your own pcp within 2 days for further specialist referral as needed, return to the ER for any new or worsening signs or symptoms. Prescriptions: Acetaminophen [Tylenol 325mg tab] 325 mg PO QID PRN #30 tab PRN Reason: Other Cyclobenzaprine [Cyclobenzaprine HCl] 10 mg PO TID PRN #21 tab PRN Reason: Other Lidocaine 5% [Lidoderm] 1 patch TOP DAILY PRN #10 patch PRN Reason: Other Referrals: Geraldo Toscano MD [Primary Care Provider] - Follow up with primary Allan Wong III, MD [Medical Doctor] - Follow up with primary Forms: WORK NOTE
[2017-11-03 12:52] VITALS: RESP 18; TEMP 98.7; O2SAT 98
--- NOTE | 2017-11-03 13:15 | CT ---
PROCEDURE: CT Cervical Spine without contrast HISTORY: Neck pain radiating to right upper extremity COMPARISON: None available. TECHNIQUE: Axial computed tomography images were obtained of the cervical spine without the use of intravenous contrast. Coronal and sagittal reformatted images were created and reviewed. Radiation dose: Total exam DLP = 703.44 mGy-cm. This CT exam was performed using one or more of the following dose reduction techniques: Automated exposure control, adjustment of the mA and/or kV according to patient size, and/or use of iterative reconstruction technique. FINDINGS: VERTEBRAE: Reversal of the anatomic lordosis with kyphosis. Degree: Mild DISCS/SPINAL CANAL/NEURAL FORAMINA: Multilevel disc degenerative changes. Proliferative, hypertrophic changes encroaching on the exiting neural foramen on the right at C3-4. Foraminal narrowing C5-6 on the left from proliferative changes. PARASPINAL SOFT TISSUES: Unremarkable. OTHER FINDINGS: None. IMPRESSION: No acute findings related to/accounting for the clinical presentation. Severe degenerative changes mid and lower cervical spine. Mild kyphosis.
[2017-11-03 14:22] VITALS: BP 157/86; PULSE 76
--- NOTE | 2017-11-03 14:32 | US ---
PROCEDURE: Right upper extremity venous US CLINICAL HISTORY: Arm pain and swelling Evaluate for deep venous thrombosis. PHYSICIAN(S): Bayron Rodriges M.D FINDINGS: The visualized rightinternal jugular vein is sonographically normal and compressible. No evidence of obstruction or thrombus is seen. The visualized segments of the right subclavian vein are patent with normal waveforms. No sonographic evidence of obstruction or thrombosis is seen. The visualized deep venous system of the proximal right upper extremity is sonographically normal and compressible. IMPRESSION: 1. No sonographic evidence for deep venous thrombosis in the visualized segments of the right upper extremity.
== END 2017-11-03 15:07 | disposition home or self-care (01) ==
LOC: ED 11:05
DX: M54.12 Radiculopathy, cervical region (principal)
CPT/HCPCS: 72125; 93971; 96372; 99284; J1100

== ENCOUNTER 2017-11-04 10:30 | Emergency (ER) | payer MEDICARE, BC ==
[2017-11-04 10:33] VITALS: BMI 30.7
[2017-11-04 10:38] VITALS: BP 145/82; PULSE 88; RESP 18; TEMP 99.1; O2SAT 97
[2017-11-04] MEDS ORDERED: oxyCODONE 10 mg Immediate Release Tab PO STA (10:52)
--- NOTE | 2017-11-04 10:52 | ED PDOC ---
Arrival/HPI - General Chief Complaint: Upper Extremity Problem/Injury Time Seen by Provider: 11/04/17 10:46 Historian: Patient - History of Present Illness Narrative History of Present Illness (Text): 11/04/17 10:47 67 y/o female, pmh including dm/asthma/cervical radiculopathy to the RUE, allergic to penicillin and sulfa medication, c/o out of the oxocodone 30mg for 1 month and needs pain medication for her neck pain with no new injury or fall after seen at the ER yesterday by me. Pt. was seen in the ER by me for the neck pain with radiating to the RUE, no chest pain or shortness of breath, no cardiopulmonary complaints, no numbness or tingling. Pt. stated that the pain always get controlled with the oxycodone 30mg po tablet TID which she stated that her last refilled about 1 month ago and didn't get any refill this month. Pt. has no parasthesia, no palpitation, no rash, no other medical or psychological complaints. Past Medical History - Provider Review Nursing Documentation Reviewed: Yes - Infectious Disease Hx of Infectious Diseases: None - Tetanus Immunization Tetanus Immunization: Unknown - Reproductive Menopause: Yes - Cardiac Hx Cardiac Disorders: No - Pulmonary Hx Respiratory Disorders: Yes Hx Chronic Obstructive Pulmonary Disease (COPD): Yes - Neurological Hx Neurological Disorder: No - HEENT Hx HEENT Disorder: Yes (eyeglasses) - Renal Hx Renal Disorder: Yes Other/Comment: RENAL INSUFFICIENCY - Endocrine/Metabolic Hx Endocrine Disorders: Yes Hx Diabetes Mellitus Type 2: Yes - Hematological/Oncological Hx Blood Disorders: Yes Other/Comment: 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" - Integumentary Hx Dermatological Disorder: No - Musculoskeletal/Rheumatological Hx Musculoskeletal Disorders: Yes Hx Falls: Yes Hx Fractures: Yes - Gastrointestinal Hx Gastrointestinal Disorders: Yes (POST LAP ARIN,HERNIORHAPPHY) - Genitourinary/Gynecological Hx Genitourinary Disorders: Yes Hx Urinary Tract Infection: Yes - Psychiatric Hx Psychophysiologic Disorder: No Hx Substance Use: No - Surgical History Hx Cholecystectomy: Yes Hx Orthopedic Surgery: Yes Other/Comment: HERNIA REPAIR - Anesthesia Hx Anesthesia: Yes Hx Anesthesia Reactions: No Hx Malignant Hyperthermia: No - Suicidal Assessment Feels Threatened In Home Enviroment: No Family/Social History - Physician Review Nursing Documentation Reviewed: Yes Family/Social History: Unknown Family HX Smoking Status: Former Smoker Hx Alcohol Use: No Hx Substance Use: No Hx Substance Use Treatment: No Allergies/Home Meds Allergies/Adverse Reactions: Allergies Penicillins Allergy (Verified 11/03/17 11:21) ANAPHYLAXIS strawberry Allergy (Verified 11/03/17 11:21) ITCHING sulfamethoxazole [From Bactrim] Adverse Reaction (Verified 11/03/17 11:21) RASH trimethoprim [From Bactrim] Adverse Reaction (Verified 11/03/17 11:21) RASH Home Medications: Home Meds Medication Instructions Recorded Confirmed Aspirin [Adult Low Dose Aspirin EC] 81 mg PO DAILY 06/10/17 11/03/17 Budesonide/Formoterol Fumarate 1 aer IH DAILY 06/10/17 11/03/17 [Symbicort 160-4.5 Mcg Inhaler] GlipiZIDE [Glucotrol] 5 mg PO DAILY 06/10/17 11/03/17 Methotrexate 2.5 mg PO SAT 06/10/17 11/03/17 Primidone [Mysoline] 25 mg PO HS 06/10/17 11/03/17 metFORMIN [glucOPHAGE] 500 mg PO BID 06/10/17 11/03/17 oxyCODONE [oxyCODONE Immediate 30 mg PO QID 06/10/17 11/03/17 Release Tab] Fluticasone/Vilanterol [Breo 1 puff NEB DAILY 11/03/17 11/03/17 Ellipta 200-25 Mcg INH] Review of Systems - Review of Systems Constitutional: absent: Fatigue, Fevers Eyes: absent: Vision Changes ENT: absent: Hearing Changes Respiratory: absent: SOB, Cough Cardiovascular: absent: Chest Pain Gastrointestinal: absent: Abdominal Pain, Nausea, Vomiting Musculoskeletal: Neck Pain. absent: Arthralgias, Back Pain Skin: absent: Rash, Pruritis Neurological: absent: Headache Psychiatric: absent: Anxiety, Depression Physical Exam Vital Signs Reviewed: Yes Vital Signs Temp Pulse Resp BP Pulse Ox 11/04/17 10:31 99.1 F 88 18 145/82 97 Temperature: Afebrile Blood Pressure: Normal Pulse: Regular Respiratory Rate: Normal Appearance: Positive for: Well-Appearing, Non-Toxic, Comfortable Pain Distress: Moderate Mental Status: Positive for: Alert and Oriented X 3 - Systems Exam Head: Present: Atraumatic, Normocephalic Pupils: Present: PERRL Extroacular Muscles: Present: EOMI Conjunctiva: Present: Normal Mouth: Present: Moist Mucous Membranes Neck: Present: Normal Range of Motion, Trachea Midline. No: Meningeal Signs, MIDLINE TENDERNESS, Paraspinal Tenderness, Lymphadenopathy Respiratory/Chest: Present: Clear to Auscultation, Good Air Exchange. No: Respiratory Distress, Accessory Muscle Use Cardiovascular: Present: Regular Rate and Rhythm, Normal S1, S2. No: Murmurs Abdomen: No: Tenderness, Distention, Peritoneal Signs, Rebound, Guarding Back: Present: Normal Inspection Upper Extremity: Present: Normal Inspection, Normal ROM, NORMAL PULSES, Neurovascularly Intact, Capillary Refill < 2s. No: Cyanosis, Edema, Deformity Lower Extremity: Present: Normal Inspection. No: Edema Neurological: Present: GCS=15, CN II-XII Intact, Speech Normal, Motor Func Grossly Intact, Gait Normal, Memory Normal, Other (Bilateral upper extremities full sensation intact, motor 5/5. ) Skin: Present: Warm, Dry, Normal Color. No: Rashes Psychiatric: Present: Alert, Oriented x 3, Normal Insight, Normal Concentration Medical Decision Making ED Course and Treatment: 11/04/17 11:01 -Oxycoone 10mg po immediate release order for her to treat her pain, vital signs are stable, no cardiopulmonary complaints. -I reviewed the [facility] report just now, last refilled oxycodone 30mg tablet on which written on 10/24/2017 at [facility] pharmacy with 90 tablets and 30 days supply. -I reviewed the result with the patient, her pain resolved and request to be discharged home with out further evaluation. Pt. is clinically stable to be discharged home at this time. -Discharge home with education on follow up with your own pmd and pain management/neurosurgery within 2 days, return to the ER for any new or worsening signs or symptoms. - PA / TELETYPE MECHANIC / Resident Statement MD/DO has reviewed & agrees with the documentation as recorded. Disposition/Present on Arrival - Present on Arrival Any Indicators Present on Arrival: No History of DVT/PE: No History of Uncontrolled Diabetes: No Urinary Catheter: No History of Decub. Ulcer: No History Surgical Site Infection Following: None - Disposition Have Diagnosis and Disposition been Completed?: Yes Diagnosis: Pain management Disposition: HOME/ ROUTINE Disposition Time: 11:13 Patient Plan: Discharge Condition: GOOD Additional Instructions: -Discharge home with education on follow up with your own pmd and pain management/neurosurgery within 2 days, return to the ER for any new or worsening signs or symptoms. Referrals: Foster Tolbert MD [Staff Provider] - Follow up with primary Geraldo Toscano MD [Primary Care Provider] - Follow up with primary Forms: WORK NOTE
== END 2017-11-04 11:38 | disposition home or self-care (01) ==
LOC: ED 10:30
DX: G89.29 Other chronic pain (principal)

== ENCOUNTER 2018-09-24 15:54 | Observation (INO) | payer MEDICARE, BC ==
[2018-09-24 15:59] VITALS: BMI 32.5
[2018-09-24] MEDS ORDERED: Oxycodone/Acetaminophen 5/325 mg Tab PO STA (17:28)
[2018-09-24 17:34] LABS: BASO # 0.04 K/mm3 (0.0-2.0); BASO % 0.5 % (0.0-3.0); EOS # 0.3 (0.0-0.7); HEMOGLOBIN 11.2 g/dL (12.0-16.0); LYMPH # 1.9 (1.2-3.4); LYMPH % 22.5 % (22.0-35.0); MEAN CORPUSCULAR HEMOGLOBIN 23.9 pg (25.0-35.0); MEAN CORPUSCULAR HGB CONC 29.6 g/dl (31.0-37.0); MEAN PLATELET VOLUME 9.2 fl (7.0-11.0); MONO # 0.4 (0.1-0.6); MONO % 5.3 % (1.0-6.0); RBC 4.68 10^6/uL (3.5-6.1); WHITE BLOOD COUNT 8.4 10^3/uL (4.5-11.0)
--- NOTE | 2018-09-24 17:56 | CARD ---
APPROVED REPORT Date of service: 09/24/2018 EKG Measurement Heart [id number] <Conclusion> Poor data quality, interpretation may be adversely affected Normal sinus rhythm Normal ECG
[2018-09-24 18:19] LABS: URINE BILIRUBIN NEGATIVE (NEGATIVE); URINE BLOOD NEGATIVE (NEGATIVE); URINE GLUCOSE (UA) NEGATIVE (NEGATIVE); URINE LEUKOCYTE ESTERASE MODERATE Leu/uL (NEGATIVE); URINE PROTEIN NEGATIVE mg/dL (<30 mg/dL); URINE UROBILINOGEN 0.2 E.U./dL (<1 E.U./dL)
[2018-09-24 18:27] LABS: URINE APPEARANCE SL CLOUDY (CLEAR); URINE COLOR YELLOW (YELLOW)
[2018-09-24 18:31] LABS: URINE BACTERIA MOD /hpf; URINE RBC 0 - 2 /hpf (0-2); URINE WBC 25 - 30 /hpf (0-6)
--- NOTE | 2018-09-24 18:53 | CT ---
Date of service: 09/24/2018 PROCEDURE: CT HEAD WITHOUT CONTRAST. HISTORY: headache COMPARISON: 03/14/2015. TECHNIQUE: Axial computed tomography images were obtained through the head/brain without intravenous contrast. Supplemental Coronal and Sagittal projections created and reviewed. Radiation dose: Total exam DLP = 1047.84 mGy-cm. This CT exam was performed using one or more of the following dose reduction techniques: Automated exposure control, adjustment of the mA and/or kV according to patient size, and/or use of iterative reconstruction technique. FINDINGS: HEMORRHAGE: No intracranial hemorrhage. BRAIN: No mass effect or edema. Cortical and cerebellar atrophy, periventricular small vessel disease. VENTRICLES: Unremarkable. No hydrocephalus. CALVARIUM: Unremarkable. PARANASAL SINUSES: Unremarkable as visualized. No significant inflammatory changes. MASTOID AIR CELLS: Unremarkable as visualized. No inflammatory changes. OTHER FINDINGS: None. IMPRESSION: No acute intracranial abnormalities. No significant findings to account for the clinical presentation. No significant interval change compared to the prior examination(s).
[2018-09-24 18:55] LABS: ALB/GLOB RATIO 1.3 (1.1-1.8)
[2018-09-24 18:58] LABS: ALBUMIN 4.3 g/dL (3.0-4.8); ALT/SGPT 25 U/L (7-56); AST/SGOT 34 U/L (14-36); BLOOD UREA NITROGEN 20 mg/dL (7-21); CALCIUM 9.5 mg/dL (8.4-10.5); GFR NON-AFRICAN AMERICAN 45; LIPASE 96 U/L (23-300)
[2018-09-24 19:12] LABS: TROPONIN I < 0.01 ng/mL
[2018-09-24] MEDS ORDERED: Morphine 2 mg/ml ISec IVP STA (19:38)
--- NOTE | 2018-09-24 19:58 | ED PDOC ---
Arrival/HPI - General Historian: Patient - History of Present Illness Narrative History of Present Illness (Text): 09/24/18 19:52 68-year-old female presents today with a 2-day history of intermittent chest pain that is nonradiating. Patient denies shortness of breath. Patient denies fevers or chills. Patient states today while ambulating she tripped and fell hitting her face and injuring her left elbow. Patient states her tetanus is up-to-date. She is complaining of headache. Denies blurred vision. Patient denies loss of consciousness but her daughter states that she was confused initially. Patient denies dysuria or urinary frequency. No abdominal pain. No dizziness or weakness. No other complaints <Leena Khanna - Last Filed: 09/24/18 20:09> <Kwan Issa - Last Filed: 09/24/18 21:27> - General Chief Complaint: Chest Pain Time Seen by Provider: 09/24/18 16:09 Past Medical History - Provider Review Nursing Documentation Reviewed: Yes - Travel History Have you recently traveled outside [place] w/in the past 3 mons?: No - Infectious Disease Hx of Infectious Diseases: None - Tetanus Immunization Tetanus Immunization: Unknown - Cardiac Hx Cardiac Disorders: No - Pulmonary Hx Respiratory Disorders: Yes Hx Chronic Obstructive Pulmonary Disease (COPD): Yes - Neurological Hx Neurological Disorder: No - HEENT Hx HEENT Disorder: Yes (eyeglasses) - Renal Hx Renal Disorder: Yes Other/Comment: RENAL INSUFFICIENCY - Endocrine/Metabolic Hx Endocrine Disorders: Yes Hx Diabetes Mellitus Type 2: Yes - Hematological/Oncological Hx Blood Disorders: Yes Other/Comment: 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" - Integumentary Hx Dermatological Disorder: No - Musculoskeletal/Rheumatological Hx Musculoskeletal Disorders: Yes Hx Falls: Yes Hx Fractures: Yes - Gastrointestinal Hx Gastrointestinal Disorders: Yes (POST LAP ARIN,HERNIORHAPPHY) - Genitourinary/Gynecological Hx Genitourinary Disorders: Yes Hx Urinary Tract Infection: Yes - Psychiatric Hx Psychophysiologic Disorder: No Hx Substance Use: No - Surgical History Hx Cholecystectomy: Yes Hx Orthopedic Surgery: Yes Other/Comment: HERNIA REPAIR - Anesthesia Hx Anesthesia: Yes Hx Anesthesia Reactions: No Hx Malignant Hyperthermia: No - Suicidal Assessment Feels Threatened In Home Enviroment: No <Leena Khanna - Last Filed: 09/24/18 20:09> Family/Social History - Physician Review Nursing Documentation Reviewed: Yes Family/Social History: Unknown Family HX Smoking Status: Former Smoker Hx Alcohol Use: No Hx Substance Use: No Hx Substance Use Treatment: No <Leena Khanna - Last Filed: 09/24/18 20:09> Allergies/Home Meds <Leena Khanna - Last Filed: 09/24/18 20:09> <Kwan Issa - Last Filed: 09/24/18 21:27> Allergies/Adverse Reactions: Allergies Penicillins Allergy (Verified 11/03/17 11:21) ANAPHYLAXIS strawberry Allergy (Verified 11/03/17 11:21) ITCHING sulfamethoxazole [From Bactrim] Adverse Reaction (Verified 11/03/17 11:21) RASH trimethoprim [From Bactrim] Adverse Reaction (Verified 11/03/17 11:21) RASH Home Medications: Home Meds Medication Instructions Recorded Confirmed Aspirin [Adult Low Dose Aspirin EC] 81 mg PO DAILY 06/10/17 09/24/18 Budesonide/Formoterol Fumarate 1 aer IH DAILY 06/10/17 09/24/18 [Symbicort 160-4.5 Mcg Inhaler] GlipiZIDE [Glucotrol] 5 mg PO DAILY 06/10/17 09/24/18 Methotrexate 2.5 mg PO SAT 06/10/17 09/24/18 Primidone [Mysoline] 25 mg PO HS 06/10/17 09/24/18 metFORMIN [glucOPHAGE] 500 mg PO BID 06/10/17 09/24/18 oxyCODONE [oxyCODONE Immediate 30 mg PO QID 06/10/17 09/24/18 Release Tab] Fluticasone/Vilanterol [Breo 1 puff NEB DAILY 11/03/17 09/24/18 Ellipta 200-25 Mcg INH] Review of Systems - Review of Systems Constitutional: absent: Fatigue, Fevers Eyes: absent: Vision Changes, Photophobia, Eye Pain ENT: Other (+ nasal injury). absent: Sore Throat, Sinus Congestion Respiratory: absent: SOB, Cough Cardiovascular: Chest Pain. absent: Palpitations Gastrointestinal: absent: Abdominal Pain, Constipation, Diarrhea, Nausea, Vomiting Genitourinary Female: absent: Dysuria, Frequency, Hematuria Musculoskeletal: Arthralgias. absent: Back Pain, Neck Pain Skin: Rash (abrasions to right hand ). absent: Pruritis Neurological: Headache. absent: Dizziness Psychiatric: absent: Anxiety, Depression, Suicidal Ideation <Leena Khanna T - Last Filed: 09/24/18 20:09> Physical Exam Vital Signs Reviewed: Yes Vital Signs Temp Pulse Resp BP Pulse Ox 09/24/18 19:06 98.7 F 71 18 128/49 L 95 09/24/18 16:11 98.8 F 80 18 117/63 95 Temperature: Afebrile Blood Pressure: Normal Pulse: Regular Respiratory Rate: Normal Appearance: Positive for: Well-Appearing, Non-Toxic, Comfortable Pain Distress: None Mental Status: Positive for: Alert and Oriented X 3 - Systems Exam Head: Present: Tenderness (+ ttp over bridge of nose; + ecchymosis. + swelling. ), Contusion, Swelling Pupils: Present: PERRL Extroacular Muscles: Present: EOMI Conjunctiva: Present: Normal Ears: Present: Normal Mouth: Present: Moist Mucous Membranes Pharnyx: Present: Normal. No: ERYTHEMA, EXUDATE Nose (External): Present: Contusion. No: Laceration Nose (Internal): Present: Normal Inspection. No: Septal Deviation, Septal Hematoma, Epistaxis Neck: Present: Normal Range of Motion. No: MIDLINE TENDERNESS, Paraspinal Tenderness Respiratory/Chest: Present: Clear to Auscultation, Good Air Exchange. No: Respiratory Distress, Accessory Muscle Use, Tender to Palpation Cardiovascular: Present: Regular Rate and Rhythm Abdomen: No: Tenderness, Distention, Rebound, Guarding Back: Present: Normal Inspection. No: Midline Tenderness, Paraspinal Tenderness Upper Extremity: Present: Tenderness, Neurovascularly Intact, Capillary Refill < 2s. No: Normal ROM (left elbow; + ttp over elbow; limited flexion of elbow; ), Swelling, Erythema, Temperature Abnormalties Lower Extremity: Present: Normal Inspection Neurological: Present: GCS=15, Speech Normal Skin: Present: Warm, Dry Psychiatric: Present: Alert, Oriented x 3 <Leena Khanna T - Last Filed: 09/24/18 20:09> Vital Signs Temp Pulse Resp BP Pulse Ox 09/24/18 19:06 98.7 F 71 18 128/49 L 95 09/24/18 16:11 98.8 F 80 18 117/63 95 <Maegan,Kwan - Last Filed: 09/24/18 21:27> Medical Decision Making ED Course and Treatment: 09/24/18 19:55 68-year-old female with a 2-day history of intermittent chest pain and a mechanical fall today. CBC within normal limits CMP within normal limits Troponin within normal limits Urinalysis shows positive leukocytes with 20-25 white blood cells EKG normal sinus rhythm at 82 bpm normal axis normal intervals no ST elevations Chest x-ray shows no infiltrate or effusion no cardiomegaly X-rays of the left elbow: There is an old fracture noted to the radial head and a small avulsion noted to the epicondyle. xray of left humerus no fracture; Patient placed in a long-arm posterior splint. head ct; FINDINGS: HEMORRHAGE: No intracranial hemorrhage. BRAIN: No mass effect or edema. Cortical and cerebellar atrophy, periventricular small vessel disease. VENTRICLES: Unremarkable. No hydrocephalus. CALVARIUM: Unremarkable. PARANASAL SINUSES: Unremarkable as visualized. No significant inflammatory changes. MASTOID AIR CELLS: Unremarkable as visualized. No inflammatory changes. OTHER FINDINGS: None. IMPRESSION: No acute intracranial abnormalities. No significant findings to account for the clinical presentation. No significant interval change compared to the prior examination(s). ct maxillofaciaL:There is no acute fracture or other significant osseous abnormality involving the visualized facial bones. Paranasal sinuses are well developed. A small polyp or retention cyst within the left maxillary sinus. There is hypertrophic and degenerative changes cervical spine with mild ant erolisthesis at the C3-C4 level. Impression: No acute fracture or other acute osseous abnormality involving the visualized facial. Small polyp or retention cyst within the left maxillary sinus. Hypertrophic and degenerative changes cervical spine with mild anterolisthesis at the C3-C4 level. Clinical correlation advised. Electronically signed on Sep 24, 2018 7:37:57 PM EDT by: Mg Puga M.D., Certified by [facility], Diagnostic Radiology Patient given morphine for pain. aspirin given p.o. Case was discussed in depth with the patient's primary care physician Dr. Toscano. accepts observational status admission for cp with elbow injury. cipro given for UTI All aspects of this case were discussed the attending of record. impression; chest pain, head injury, elbow pain, nasal contusion, uti admit observational status. - Lab Interpretations Lab Results: Troponin I < 0.01 ng/mL 09/24/18 18:30 Total Bilirubin 0.3 mg/dL (0.2-1.3) 09/24/18 18:30 AST 34 U/L (14-36) 09/24/18 18:30 ALT 25 U/L (7-56) 09/24/18 18:30 Alkaline Phosphatase 89 U/L (38-126) 09/24/18 18:30 Total Protein 7.6 g/dL (5.8-8.3) 09/24/18 18:30 Albumin 4.3 g/dL (3.0-4.8) 09/24/18 18:30 Globulin 3.3 gm/dL 09/24/18 18:30 Albumin/Globulin Ratio 1.3 (1.1-1.8) 09/24/18 18:30 Lipase 96 U/L (23-300) 09/24/18 18:30 Urine Color Yellow (YELLOW) 09/24/18 18:10 Urine Appearance Sl cloudy (CLEAR) 09/24/18 18:10 Urine pH 7.0 (4.7-8.0) 09/24/18 18:10 Ur Specific [place] 1.015 (1.005-1.035) 09/24/18 18:10 Urine Protein Negative mg/dL (<30 mg/dL) 09/24/18 18:10 Urine Glucose (UA) Negative mg/dL (NEGATIVE) 09/24/18 18:10 Urine Ketones Negative mg/dL (NEGATIVE) 09/24/18 18:10 Urine Blood Negative (NEGATIVE) 09/24/18 18:10 Urine Nitrate Negative (NEGATIVE) 09/24/18 18:10 Urine Bilirubin Negative (NEGATIVE) 09/24/18 18:10 Urine Urobilinogen 0.2 E.U./dL (<1 E.U./dL) 09/24/18 18:10 Ur Leukocyte Esterase Moderate Vaishali/uL (NEGATIVE) H 09/24/18 18:10 Urine RBC 0 - 2 /hpf (0-2) 09/24/18 18:10 Urine WBC 25 - 30 /hpf (0-6) H 09/24/18 18:10 Ur Epithelial Cells 6 - 8 /hpf (0-5) H 09/24/18 18:10 Urine Bacteria Mod /hpf (NONE) 09/24/18 18:10 - RAD Interpretation Radiology Orders: 09/24/18 16:53 CHEST PORTABLE [RAD] Stat 09/24/18 17:27 HEAD W/O CONTRAST [CT] Stat 09/24/18 17:28 MAXILLOFACIAL W/O CONTRAST [CT] Stat ELBOW LEFT 3 VIEWS ROUTINE [RAD] Stat 09/24/18 17:29 HUMERUS LEFT [RAD] Stat - Medication Orders Current Medication Orders: Discontinued Medications Aspirin (Aspirin) 325 mg PO STAT STA Stop: 09/24/18 19:39 Morphine Sulfate (Morphine) 2 mg IVP STAT STA Stop: 09/24/18 19:39 Oxycodone/Acetaminophen (Percocet 5/325 Mg Tab) 1 tab PO STAT STA Stop: 09/24/18 17:29 Last Admin: 09/24/18 17:55 Dose: 1 tab MAR Pain Assessment Document 09/24/18 17:55 OCS (Rec: 09/24/18 17:56 OCS [id number]) Pain Reassessment Is this a pain reassessment? No Sleep Is patient sleeping during reassessment? No Presence of Pain Presence of Pain Yes Pain Scale Used Protocol: PSCALES Pain Scale Used Numeric Location Pain Location Body Site Chest Description Description Constant Intensity of Pain at present 7 Pain Behavior Facial Grimacing Aggravating Factors ADL's <Azoia,Leena T - Last Filed: 09/24/18 20:09> - Lab Interpretations Lab Results: Troponin I < 0.01 ng/mL 09/24/18 18:30 Total Bilirubin 0.3 mg/dL (0.2-1.3) 09/24/18 18:30 AST 34 U/L (14-36) 09/24/18 18:30 ALT 25 U/L (7-56) 09/24/18 18:30 Alkaline Phosphatase 89 U/L (38-126) 09/24/18 18:30 Total Protein 7.6 g/dL (5.8-8.3) 09/24/18 18:30 Albumin 4.3 g/dL (3.0-4.8) 09/24/18 18:30 Globulin 3.3 gm/dL 09/24/18 18:30 Albumin/Globulin Ratio 1.3 (1.1-1.8) 09/24/18 18:30 Lipase 96 U/L (23-300) 09/24/18 18:30 Urine Color Yellow (YELLOW) 09/24/18 18:10 Urine Appearance Sl cloudy (CLEAR) 09/24/18 18:10 Urine pH 7.0 (4.7-8.0) 09/24/18 18:10 Ur Specific [place] 1.015 (1.005-1.035) 09/24/18 18:10 Urine Protein Negative mg/dL (<30 mg/dL) 09/24/18 18:10 Urine Glucose (UA) Negative mg/dL (NEGATIVE) 09/24/18 18:10 Urine Ketones Negative mg/dL (NEGATIVE) 09/24/18 18:10 Urine Blood Negative (NEGATIVE) 09/24/18 18:10 Urine Nitrate Negative (NEGATIVE) 09/24/18 18:10 Urine Bilirubin Negative (NEGATIVE) 09/24/18 18:10 Urine Urobilinogen 0.2 E.U./dL (<1 E.U./dL) 09/24/18 18:10 Ur Leukocyte Esterase Moderate Vaishali/uL (NEGATIVE) H 09/24/18 18:10 Urine RBC 0 - 2 /hpf (0-2) 09/24/18 18:10 Urine WBC 25 - 30 /hpf (0-6) H 09/24/18 18:10 Ur Epithelial Cells 6 - 8 /hpf (0-5) H 09/24/18 18:10 Urine Bacteria Mod /hpf (NONE) 09/24/18 18:10 - RAD Interpretation Radiology Orders: 09/24/18 16:53 CHEST PORTABLE [RAD] Stat 09/24/18 17:27 HEAD W/O CONTRAST [CT] Stat 09/24/18 17:28 MAXILLOFACIAL W/O CONTRAST [CT] Stat ELBOW LEFT 3 VIEWS ROUTINE [RAD] Stat 09/24/18 17:29 HUMERUS LEFT [RAD] Stat - Medication Orders Current Medication Orders: Discontinued Medications Aspirin (Aspirin) 325 mg PO STAT STA Stop: 09/24/18 19:39 Last Admin: 09/24/18 19:51 Dose: 325 mg Ciprofloxacin (Cipro) 500 mg PO ONCE STA; Protocol Stop: 09/24/18 20:11 Last Admin: 09/24/18 20:32 Dose: 500 mg Morphine Sulfate (Morphine) 2 mg IVP STAT STA Stop: 09/24/18 19:39 Last Admin: 09/24/18 19:51 Dose: 2 mg MAR Pain Assessment Document 09/24/18 19:51 OCS (Rec: 09/24/18 19:56 OCS [id number]) Pain Reassessment Is this a pain reassessment? Yes Sleep Is patient sleeping during reassessment? No Presence of Pain Presence of Pain Yes Pain Scale Used Protocol: [facility] Pain Scale Used Numeric Location Left, Right or Bilateral Right Pain Location Body Site Breast Description Description Constant Intensity of Pain at present 9 Pain Behavior Moaning Irritability Facial Grimacing Aggravating Factors ADL's IVP Administration Document 09/24/18 19:51 OCS (Rec: 09/24/18 19:56 OCS [id number]) Charges for Administration # of IVP Administrations 1 Oxycodone/Acetaminophen (Percocet 5/325 Mg Tab) 1 tab PO STAT STA Stop: 09/24/18 17:29 Last Admin: 09/24/18 17:55 Dose: 1 tab MAR Pain Assessment Document 09/24/18 17:55 OCS (Rec: 09/24/18 17:56 OCS [id number]) Pain Reassessment Is this a pain reassessment? No Sleep Is patient sleeping during reassessment? No Presence of Pain Presence of Pain Yes Pain Scale Used Protocol: [facility] Pain Scale Used Numeric Location Pain Location Body Site Chest Description Description Constant Intensity of Pain at present 7 Pain Behavior Facial Grimacing Aggravating Factors ADL's Tetanus/Reduced Diphtheria/Acell Pertussis (Boostrix Vaccine Inj) 0.5 ml IM .ONCE ONE Stop: 09/24/18 20:10 Last Admin: 09/24/18 20:31 Dose: 0.5 ml Immunization Registry Document 09/24/18 20:31 OCS (Rec: 09/24/18 20:31 OCS [id number]) [facility]-Date provided 09/24/18 <Kwan Issa - Last Filed: 09/24/18 21:27> Procedures - Splinting Location: left elbow Hand-Made Type: fiberglass Splint: posterior long arm splint <Leena Khanna - Last Filed: 09/24/18 20:09> - PA / TILTING SAW OPERATOR / Resident Statement MICHAEL has reviewed & agrees with the documentation as recorded. MICHAEL has examined the patient and agrees with the treatment plan. <Kwan Issa - Last Filed: 09/24/18 21:27> Disposition/Present on Arrival - Present on Arrival Any Indicators Present on Arrival: No History of DVT/PE: No History of Uncontrolled Diabetes: No Urinary Catheter: No History of Decub. Ulcer: No History Surgical Site Infection Following: None - Disposition Have Diagnosis and Disposition been Completed?: Yes Disposition Time: 19:50 Patient Plan: Observation <Leena Khanna - Last Filed: 09/24/18 20:09> <Kwan Issa - Last Filed: 09/24/18 21:27> - Disposition Diagnosis: Chest pain, Head injury, Nasal contusion, Elbow contusion, Urinary tract infection Disposition: HOSPITALIZED Condition: FAIR
[2018-09-24] MEDS ORDERED: TDAP Vaccine 0.5 mL Syr IM ONE (20:09)
[2018-09-24] MEDS: oxyCODONE 30 mg Immediate Release Tab PO PRN (22:58)
[2018-09-24] MEDS: oxyCODONE 20 mg ER Tab (oxyCONTIN) PO SCH (22:59)
[2018-09-25] MEDS ORDERED: Influenza Vaccine 60 mcg/0.5 mL SYR (4YR UP) IM ONE
[2018-09-25] MEDS ORDERED: Pneumococcal 23-Valent Vaccine IM ONE
[2018-09-25 00:49] VITALS: RESP 20
[2018-09-25] MEDS: oxyCODONE 30 mg Immediate Release Tab PO PRN ×2 (05:19→11:12)
[2018-09-25 08:05] VITALS: BP 154/83; TEMP 98.7; O2SAT 95
--- NOTE | 2018-09-25 08:28 | CT ---
Date of service: 09/24/2018 PROCEDURE: CT MAXILLOFACIAL BONES WITHOUT CONTRAST HISTORY: fall COMPARISON: None available. TECHNIQUE: Contiguous axial CT images of the maxillofacial bones were obtained. Coronal and sagittal reformats were generated. Radiation dose: Total exam DLP = 778.72 mGy-cm. This CT exam was performed using one or more of the following dose reduction techniques: Automated exposure control, adjustment of the mA and/or kV according to patient size, and/or use of iterative reconstruction technique. FINDINGS: NASAL BONES: No evidence of acute displaced nasal bone fracture. ORBITS: No evidence of acute displaced fracture in the orbits. PARANASAL SINUSES/ MASTOIDS: Is a small polyp versus mucosal retention cyst in noted in the left maxillary sinus. MAXILLA: Unremarkable. MANDIBLE/ TEMPOROMANDIBULAR JOINTS: Unremarkable. SKULL BASE: Unremarkable. TEMPORAL BONES: Middle ears and mastoid grossly unremarkable. OTHER FINDINGS: Degenerative changes in cervical spine and grade 1 anterior spondylolisthesis of C3 on C4 noted. IMPRESSION: No evidence of acute displaced fracture in the maxillofacial bones. Additional findings as discussed above. Preliminary report was submitted by [facility] Radiology contains concordant findings.
[2018-09-25] MEDS ORDERED: MethylPREDNISolone Depo 40 mg/ml Inj IM ONE (08:57)
[2018-09-25] MEDS ORDERED: Bupivacaine 0.5% Inj(30mL) IJ ONE (08:57)
--- NOTE | 2018-09-25 09:45 | RAD ---
Date of service: 09/24/2018 HISTORY: chest pain COMPARISON: 07/23/2017. FINDINGS: LUNGS: The lungs are hyperinflated and there is peribronchial thickening with chronic changes in both lungs. No focal consolidation PLEURA: No pleural effusions or pneumothorax. CARDIOVASCULAR: There is mild cardiomegaly. There are aortic atherosclerotic calcifications present. OSSEOUS STRUCTURES: Within normal limits for the patient's age. VISUALIZED UPPER ABDOMEN: Normal. OTHER FINDINGS: None. IMPRESSION: No active pulmonary disease. COPD.
[2018-09-25] MEDS: oxyCODONE 20 mg ER Tab (oxyCONTIN) PO SCH (09:47)
--- NOTE | 2018-09-25 10:41 | RAD ---
PROCEDURE: Radiographs of the left humerus. HISTORY: fall COMPARISON: None. FINDINGS: BONES: Bone alignment is normal. There is diffuse bone demineralization. There is no acute displaced fracture or bone destruction. SOFT TISSUES: Normal. OTHER FINDINGS: None. IMPRESSION: No acute fracture or dislocation.
--- NOTE | 2018-09-25 10:43 | RAD ---
Date of service: 09/24/2018 PROCEDURE: Radiographs of the left elbow. HISTORY: fall, elbow pain COMPARISON: No prior. FINDINGS: BONES: There is an acute comminuted nondisplaced fracture in the head of the radius. Bone alignment is normal. There is bone demineralization. JOINTS: Normal. No osteoarthritis. SOFT TISSUES: There is a curvilinear ossification lateral to the medial epicondyle which may represent old trauma or ligament/tendon ossification. JOINT EFFUSION: Moderate joint effusion. OTHER FINDINGS: None IMPRESSION: Acute comminuted nondisplaced fracture in the head of the radius. Moderate joint effusion. The final report is tagged to the PA review folder.
--- NOTE | 2018-09-25 10:53 | CON ---
DATE: 09/25/2018 ORTHOPEDIC CONSULT REPORT LOCATION: A 68-year-old female in [facility], bed 2. HISTORY OF PRESENT ILLNESS: The patient had slipped and fell yesterday, sent to theER. She is found to have marginal fracture of the left radial head of the nondominant elbow with tremendous pain from hemarthrosis. The fracture is non-surgical, but I could help the pain by evacuating the blood hemarthrosis of the left elbow, so we prepped the left elbow and aspirated 4 mL of thick blood and injected her with Marcaine for pain relief and she did feel better after the procedure and I told she could move it pretty well by bringing the hand to the face, may be lacking an inch from touching the lips and lacking 30 degree of full extension. So we will treat the patient non-operatively and I will follow her in the office. FINAL DIAGNOSES: Marginal fracture left radial head of a nondominant elbow and now we did a arthrocentesis of taking blood out of left elbow, injected her with Marcaine and going to follow her in the office for early range of motion and given a sling and removable splint. Geraldo Benavides DO MTDD
[2018-09-25] MEDS ORDERED: Insulin Reg-MEDIUM-Coverage SC ONE (12:15)
[2018-09-25 15:14] VITALS: PULSE 79
[2018-09-25] MEDS ORDERED: Insulin Reg-MEDIUM-Coverage SC SCH (16:30)
--- NOTE | 2018-09-25 19:19 | CON ---
DATE: 09/25/2018 REASON FOR CONSULTATION AND FOLLOWUP: Chest pain, cardiac evaluation, status post fall and status post injury to the left elbow. BRIEF CLINICAL HISTORY: A 68-year-old female with past medical history significant for hypertension, hyperlipidemia, diabetes who was feeling intermittent chest pain off and on with mild tenderness in the chest who yesterday fell down, tripped and sustained injury to the left elbow and sustained marginal fracture of left radial head and conservative approach was previously suggested by Dr. Benavides, who was complaining of intermittent chest pain retrosternal, which is tenderness. Denies any shortness of breath. Denies any palpitation or dyspnea on exertion, chest pain on exertion. 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 PAST SURGICAL HISTORY: Significant for a fall in 1999 and history of right foot fracture. SOCIAL HISTORY: Denies smoking. Denies any history of alcohol abuse. ALLERGY: TO PENICILLIN GETS ANAPHYLAXIS AND STRAWBERRY JUST ITCHING. CURRENT MEDICATION: The patient is taking at home, oxycodone 20 mg daily, metformin 500 mg twice a day, Ambien 10 mg daily, Detrol LA 4 mg daily, Mysoline mg daily, methotrexate 3 mg daily, Prevacid, Glipizide, Glucotrol, INH and aspirin. RECENT CARDIAC WORKUP: As follows, the patient had an echocardiography done on 11/27/2014 that revealed ejection fraction 65%, normal LV segmental wall motion, trace aortic regurgitation, trace mitral regurgitation, mild tricuspid regurgitation, RV systolic pressure at 25, dated 11/27/2014. The patient had an EKG yesterday that shows normal sinus, no acute ST-T changes, essentially normal EKG. PHYSICAL EXAMINATION: GENERAL: Height of the patient 5 feet 4 inches. Weight of the patient 190 pounds. Body mass index 33 kg/m2. VITAL SIGNS: Temperature afebrile. Heart rate 74 and blood pressure 154/83. HEENT: PERRLA. Extraocular muscles intact. NECK: Supple. No carotid bruit or thyromegaly. CHEST: Clear to auscultation. HEART: S1 and S2 regular. ABDOMEN: Soft. EXTREMITIES: Clubbing and cyanosis negative. LABORATORY DATA: Blood workup as follows; WBC 8.4, hemoglobin 11.2, hematocrit 37.9 and platelet count 333. Chemistry shows sodium 139, potassium 4.0, chloride 105, carbon dioxide 25, anion gap 30, BUN 20, creatinine 1.2. Troponin 0.01, negative. IMPRESSION: A 68-year-old female with past medical history significant for hypertension, hyperlipidemia, questionable history of systemic lupus erythematosus, admitted after a fall and fracture of left radius, being treated with conservative by Dr. Benavides, also complained of chest pain, cardiac consult was called. Since the patient has a fracture and cannot lift up hand above the head to get a stress test, we will wait for 3 to 4 weeks for a stress test till the patient can move, but we will get echo, lipid profile, TSH, and hemoglobin A1c. We will follow and suggested the patient to follow up as outpatient for a stress test after 4 weeks in office and we will arrange that till the patient's left elbow heals and the patient is able to lift up hand above the head; otherwise, we will get a false artifact and unnecessarily will lead to cardiac catheterization. Further recommendations will depend upon hospital course. We will follow with you. Thank you Dr. Toscano for providing us the opportunity in taking care of patient, Genevieve Reynoso. Edna Felipe MD
--- NOTE | 2018-09-26 09:22 | DS ---
HISTORY OF PRESENT ILLNESS: This is a 68-year-old woman who presented to the emergency room after a fall on the sidewalk. She tripped and fell over the break in the curb. It was a mechanical fall. There was no loss of consciousness. There is no syncope. She broke her left elbow, contused her face and nose, and had bumped her chest. She was seen in the emergency room and felt best to be admitted for overnight observation. She was seen by orthopedist and soft cast applied with [place] bandage around the left proximal radius and ulna. Today, Monday, she was seen sitting out of bed with the daughter at the bedside, awake, alert, clear in good spirits and very much looking forward to going home. PAST MEDICAL HISTORY: Significant for chronic pain syndrome, for which she takes a large amount of chronic opiates. PHYSICAL EXAMINATION: LUNGS: Clear. HEART: Regular. LABORATORY DATA: She was hemodynamically stable with negative troponins. Facial ecchymoses was developing and improving. I told the patient there was no reported fracture on the CT scan of the nasal or facial bones. She was discharged to home. She was out of her chronic pain medicines because of problems with prescription renewals, so prescription for 21 Percocet 10/325 were given to the patient. She was cautioned regarding long-term use of narcotic analgesics and advised to begin a program of reducing the dose by 10% per week and follow up in the office in within the week as well as follow up with her pain management physician. FINAL DISCHARGE DIAGNOSES: 1. Mechanical fall. 2. Fractured left elbow. 3. Contusion of face. 4. Chronic low back pain. Bob Toscano MD [facility]
== END 2018-09-25 15:38 | disposition home or self-care (01) ==
LOC: ED 15:54 → ERH 19:38 → 3RNO 21:24
PROVIDERS: ADMIT Internal Medicine; ATTEND Internal Medicine
DX: S52.125A Nondisplaced fracture of head of left radius, initial encounter for closed fracture (principal); S00.33XA Contusion of nose, initial encounter; S00.83XA Contusion of other part of head, initial encounter; N39.0 Urinary tract infection, site not specified; R07.89 Other chest pain; I10 Essential (primary) hypertension; M43.12 Spondylolisthesis, cervical region; E78.5 Hyperlipidemia, unspecified; E11.9 Type 2 diabetes mellitus without complications; J44.9 Chronic obstructive pulmonary disease, unspecified; G89.4 Chronic pain syndrome; M25.022 Hemarthrosis, left elbow; W01.0XXA Fall on same level from slipping, tripping and stumbling without subsequent striking against object, initial encounter; Y93.01 Activity, walking, marching and hiking; Y92.480 Sidewalk as the place of occurrence of the external cause; Z79.84 Long term (current) use of oral hypoglycemic drugs; Z79.82 Long term (current) use of aspirin; Z79.51 Long term (current) use of inhaled steroids
CPT/HCPCS: 20605; 70450; 70486; 71045; 73060; 73080; 80053; 81001; 82550; 82948; 83615; 83690; 83735; 84484; 85025; 87086; 90471; 90715; 93005; 96374; 99285; G0378; J2270